=== PATIENT | male | born 1950 | race Caucasian/White ===

== ENCOUNTER → 2019-05-13 10:50 | Outpatient (BNVA) | payer MEDICARE, SELFPAY | PROVIDERS: Family Provider Internal Medicine; PCP Internal Medicine; Visit Provider Nurse Practitioner Psychiatric/Mental Health | DX: F41.1 Generalized anxiety disorder (principal); F43.12 Post-traumatic stress disorder, chronic; F33.2 Major depressive disorder, recurrent severe without psychotic features | CPT/HCPCS: 99213 ==

== ENCOUNTER → 2019-08-05 08:12 | Outpatient (BNVA) | payer OTHER, SELFPAY | PROVIDERS: Family Provider Internal Medicine; PCP Internal Medicine; Visit Provider Nurse Practitioner Psychiatric/Mental Health | DX: F33.2 Major depressive disorder, recurrent severe without psychotic features (principal); F43.12 Post-traumatic stress disorder, chronic; F41.1 Generalized anxiety disorder | CPT/HCPCS: 99213 ==

== ENCOUNTER → 2019-08-13 14:40 | Outpatient (BNVA) | payer OTHER, SELFPAY | PROVIDERS: Family Provider Internal Medicine; PCP Internal Medicine; Visit Provider Urology | DX: R97.20 Elevated prostate specific antigen [PSA] (principal); N40.1 Benign prostatic hyperplasia with lower urinary tract symptoms; N13.8 Other obstructive and reflux uropathy | CPT/HCPCS: 81001; 84153 ==

== ENCOUNTER → 2020-01-15 13:15 | Outpatient (BNVA) | payer OTHER, SELFPAY | PROVIDERS: Family Provider Internal Medicine; PCP Internal Medicine; Visit Provider Nurse Practitioner Psychiatric/Mental Health | DX: F33.3 Major depressive disorder, recurrent, severe with psychotic symptoms (principal); F03.91 Unspecified dementia, unspecified severity, with behavioral disturbance; F41.1 Generalized anxiety disorder; F43.12 Post-traumatic stress disorder, chronic | CPT/HCPCS: 99214 ==

== ENCOUNTER → 2020-01-16 09:28 | Outpatient (BNVA) | payer OTHER, SELFPAY | PROVIDERS: Family Provider Internal Medicine; PCP Internal Medicine; Visit Provider Nurse Practitioner Psychiatric/Mental Health | DX: Z79.899 Other long term (current) drug therapy (principal); F23 Brief psychotic disorder | CPT/HCPCS: 80053; 81001; 85025 ==

== ENCOUNTER → 2020-02-13 12:50 | Outpatient (BNVA) | payer OTHER, SELFPAY | PROVIDERS: Family Provider Internal Medicine; PCP Internal Medicine; Visit Provider Nurse Practitioner Psychiatric/Mental Health | DX: F33.3 Major depressive disorder, recurrent, severe with psychotic symptoms (principal); F03.91 Unspecified dementia, unspecified severity, with behavioral disturbance; F41.1 Generalized anxiety disorder; F43.12 Post-traumatic stress disorder, chronic | CPT/HCPCS: 99214 ==

== ENCOUNTER → 2020-03-13 13:00 | Outpatient (BNVA) | payer OTHER, SELFPAY | PROVIDERS: Family Provider Internal Medicine; PCP Internal Medicine; Visit Provider Nurse Practitioner Psychiatric/Mental Health | DX: F33.3 Major depressive disorder, recurrent, severe with psychotic symptoms (principal); F03.91 Unspecified dementia, unspecified severity, with behavioral disturbance; F41.1 Generalized anxiety disorder; F43.12 Post-traumatic stress disorder, chronic; F33.2 Major depressive disorder, recurrent severe without psychotic features | CPT/HCPCS: 99213 ==

== ENCOUNTER → 2020-07-02 12:58 | Outpatient (BNVA) | payer OTHER, SELFPAY | PROVIDERS: Family Provider Internal Medicine; PCP Internal Medicine; Visit Provider Nurse Practitioner Psychiatric/Mental Health | DX: F33.3 Major depressive disorder, recurrent, severe with psychotic symptoms (principal); F03.91 Unspecified dementia, unspecified severity, with behavioral disturbance; F41.1 Generalized anxiety disorder; F43.12 Post-traumatic stress disorder, chronic | CPT/HCPCS: 99214 ==

== ENCOUNTER → 2020-09-25 13:11 | Outpatient (BNVA) | payer OTHER, SELFPAY | PROVIDERS: Family Provider Internal Medicine; PCP Internal Medicine; Visit Provider Nurse Practitioner Psychiatric/Mental Health | DX: F33.3 Major depressive disorder, recurrent, severe with psychotic symptoms (principal); F41.1 Generalized anxiety disorder; F43.12 Post-traumatic stress disorder, chronic; F03.91 Unspecified dementia, unspecified severity, with behavioral disturbance | CPT/HCPCS: 99214 ==

== ENCOUNTER 2020-11-25 11:57 | Emergency (ER) | payer OTHER, MEDICARE, SELFPAY ==
[2020-11-25 12:06] VITALS: BP 157/67; PULSE 95; RESP 20; TEMP 37.3; O2SAT 94; BMI 44.9
--- NOTE | 2020-11-25 12:59 | USCV_ITS ---
Frank Junior Age: 70 Gender: M : 1950 Exam Date: 11/25/2020 13:30 Ordering Phys: Sherrie Rajan Technologist: Exam Location: [facility] [place] Indication: LT LEG PAIN AND SWELLING PROCEDURES: Venous duplex imaging was performed in only the left lower extremity. The following venous structures were evaluated: common femoral vein, profunda vein, proximal portion of the greater saphenous vein, superficial femoral vein, and the popliteal vein. In addition, the posterior tibial and peroneal trunk were evaluated. On the left side, the common femoral, superficial femoral, profunda femoral, popliteal, posterior tibial, greater saphenous veins, and the peroneal trunk were identified and interrogated in the standard fashion. These veins were found to be easily compressible with spontaneous blood flow. No evidence of insufficiency or thrombus noted. FINDINGS: Normal 2-D Doppler and augmentation and compressibility throughout the lower extremity venous structures. Additional imaging through the proximal calf veins also reveals no thrombus. Limited evaluation of the greater saphenous vein is patent with no thrombus.. CONCLUSIONS No evidence of left lower extremity DVT. Royal Medellin MD (Electronically Signed) Final Date: 25 November 2020 18:01 S
--- NOTE | 2020-11-25 12:59 | W.ED.EXTPRO ---
HPI - Extremity Problem General: Chief complaint: Extremity Problem,Nontraumatic Stated complaint: L FOOT/LEG SWELLING: [facility] Time Seen by Provider: 11/25/20 12:50 Source: patient Mode of arrival: ambulatory Limitations: no limitations History of Present Illness: HPI Narrative: Patient is a 70-year-old male who presents to ED [facility] for concerns of left lower extremity swelling that patient states he initially noticed yesterday. No recent surgery. Patient tells me he does live a very sedentary lifestyle. No history of DVT. Patient states he does not believe he is on anticoagulation. He does not complain of shortness of breath or difficulty breathing. MD Complaint: extremity swelling Onset (ago): day(s) Pain Consistency: constant Location: left and lower extremity Radiation: none Associated symptoms: Reports no associated symptoms; Deny chest pain or fever(s) Review of Systems Const: Denies: fever(s), chills, body aches, fatigue or malaise Card: Denies: chest pain, palpitations, irregular heart rhythm, edema, lightheadedness, syncope or pre-syncope Resp: Denies: dyspnea, wheezing, hemoptysis or chest congestion GI: Denies: abdominal pain, nausea or vomiting Musc: Reports: extremity pain and extremity swelling; Denies: neck pain, back pain, joint pain, joint swelling, joint redness, joint warmth, joint stiffness or limited range of motion Skin/Breast: Reports: other (redness L foot) Neuro: Denies: numbness in extremities or sensory changes PFS ED PFSH: Medical History (Updated 11/25/20 @ 14:28 by LAWRENCE Vaca) BPH w urinary obs/LUTS Chronic post-traumatic stress disorder Elevated PSA Generalized anxiety disorder Major depressive disorder, recurrent, severe with psychotic symptoms Unspecified dementia with behavioral disturbance Family History Mother , 80 Dementia Father , 85 No problems noted. Social History (Updated 09/25/20 @ 13:48 by Leonid Kim LPN) Smoking and tobacco status: former smoker Quit status (tobacco): has quit using tobacco Year quit tobacco: 2009 Second hand smoke exposure: No Alcohol intake: never Marital status: Single Current occupational status: retired History of recent travel: No Physical Exam Const: COMMON NORMALS: no acute distress, patient oriented x3, no limitations and alert NUTRITIONAL APPEARANCE: obese morbidly obese ORIENTATION/CONSCIOUSNESS: Yes awake, Yes oriented to person, Yes oriented to place and Yes oriented to time Resp: COMMON NORMALS: normal respiratory effort and clear to auscultation bilaterally AUSCULTATION: clear to auscultation bilaterally Cardio: COMMON NORMALS: regular rate and regular rhythm RATE: regular rate RHYTHM: regular rhythm Extremity: COMMON NORMALS: full ROM, capillary refill normal and no joint enlargement GENERAL: Yes calf tenderness (L) OTHER: L lower extremity swelling when compared to R; some mild erythema/warmth to dorsum of R foot; NV intact Neuro: COMMON NORMALS: patient oriented x3 SENSORIUM/ORIENTATION: Yes alert, Yes oriented to person, Yes oriented to place and Yes oriented to time Course Vital Signs: Vital signs: Vital Signs Temperature 99.1 F 11/25/20 12:06 Pulse Rate 78 11/25/20 14:02 Respiratory Rate 20 H 11/25/20 12:06 Blood Pressure 139/74 11/25/20 14:02 Pulse Oximetry 96 11/25/20 14:02 MDM - Extremity (Nontraumatic) Lab Data: Labs: Lab Results 11/25/20 11/25/20 11/25/20 Range/Units 13:19 13:19 13:19 WBC 8.4 (4.0-10.0) 10^3/ uL RBC 5.33 H (4.1-5.3) 10^6/u L Hgb 15.5 (11.7-16.6) g/dL Hct 47.7 (42.0-52.0) % MCV 89.5 (80-94) fl MCH 29.1 (28.0-34.0) pg MCHC 32.5 (30.0-36.0) g/dL RDW 13.5 (12.1-15.1) % Plt Count 111 L (130-400) 10^3/c mm MPV 10.7 H (7.4-10.4) fL Neut % (Auto) 64.3 % Lymph % (Auto) 20.0 % [place] % (Auto) 13.9 % Eos % (Auto) 0.1 % Baso % (Auto) 1.1 % Neut # (Auto) 5.38 (1.8-7.7) 10^3/u L Lymph # (Auto) 1.7 (0.8-4.8) 10^3/u L [place] # (Auto) 1.2 H (0.2-0.9) 10^3/u L Eos # (Auto) 0.0 (0.0-0.8) 10^3/u L Baso # (Auto) 0.1 (0.0-0.1) 10^3/u L Nucleated RBC % (a uto) 0 % Nucleated RBCs # 0.0 /100WBC PT 12.70 (12.1-14.9) SECO NDS INR 0.92 (0.8-1.2) APTT 25.1 (23.9-36.7) SECO NDS Sodium 139 (136-145) mmol/L Potassium 4.3 (3.5-5.1) mmol/L Chloride 103 (98-107) mmol/L Carbon Dioxide 27 (22-29) mmol/L Anion Gap 13.3 (5-19) BUN 19 (8-23) mg/dL Creatinine 1.3 H (0.7-1.2) mg/dL GFR Calculation Not Reportable Glucose 154 H (65-115) mg/dL Calculated Osmolal ity 293 (285-295) mOsm/k g Calcium 8.7 (8.5-10.5) mg/dL Total Bilirubin 0.6 (0.15-1.2) mg/dL AST 20 (0-40) U/L ALT 26 (0-41) U/L Alkaline Phosphata se 98 (40-130) IU/L Total Protein 6.1 L (6.6-8.7) g/dL Albumin 4.2 (3.5-5.2) g/dL Globulin 1.9 (1.3-4.6) g/dL Imaging Data^: US L LE venous: My impression: Per Ozzy Rios, tech?no DVT Discharge Plan Discharge Patient Disposition: Home Clinical Impression: Left leg swelling, Cellulitis of foot, left Condition: Stable Prescriptions: New cephalexin 500 mg capsule 500 mg PO Q6H 7 Days Qty: 28 RF: 0 No Action lisinopril 20 mg tablet 10 mg PO DAILY RF: 0 budesonide 90 mcg/actuation aerosol powdr breath activated 2 inh INHALATION BID RF: 0 cilostazol 100 mg tablet 50 mg PO BID RF: 0 pregabalin 100 mg capsule 100 mg PO BID RF: 0 bupropion HCl [Wellbutrin SR] 150 mg tablet sustained-release 12 hr 300 mg PO .morning Qty: 180 RF: 2 donepezil [Aricept] 10 mg tablet 10 mg PO .QHS Qty: 90 RF: 2 memantine 10 mg tablet 10 mg PO .morning Qty: 90 RF: 2 quetiapine [Seroquel] 25 mg tablet 25 mg PO .bedtime Qty: 90 RF: 2 tamsulosin 0.4 mg capsule 0.4 mg PO .BEDTIME Qty: 90 RF: 3 methocarbamol 500 mg tablet 500 mg PO QID RF: 0 aspirin [Adult Low Dose Aspirin] 81 mg tablet,delayed release (DR/EC) 81 mg PO DAILY RF: 0 amlodipine 10 mg tablet 10 mg PO DAILY RF: 0 omega-3 fatty acids [Fish Oil Concentrate] 1,000 mg capsule 1,000 mg PO DAILY RF: 0 furosemide [Lasix] 40 mg tablet 40 mg PO QAM RF: 0 atorvastatin 40 mg tablet 20 mg PO DAILY RF: 0 Discharge Orders: Discharge ED (Routine); Ordered 11/25/20 Ordered By: Sherrie Rajan Referrals: Candice Laura MD [Primary Care Provider] - Patient Instructions: Cellulitis (ED), Leg Edema (ED) Activity Restrictions/Additional Instructions: [facility] in the next 3 to 5 days for any worsening leg pain, swelling, or worsening redness to your foot, streaking up your leg, fevers, or any other concerns you may have. Coding Level of Care Code ED Chief Clerk for Chg Fwd Exam Expanded Problem Focused
[2020-11-25 13:29] LABS: Basophils # 0.1 10^3/uL (0.0-0.1); Basophils % 1.1 %; Eosinophils % 0.1 %; Hematocrit 47.7 % (42.0-52.0); Hemoglobin 15.5 g/dL (11.7-16.6); Lymphocytes # 1.7 10^3/uL (0.8-4.8); Mean Corpuscular HGB Conc 32.5 g/dL (30.0-36.0); Mean Corpuscular Hemoglobin 29.1 pg (28.0-34.0); Mean Corpuscular Volume 89.5 fl (80-94); Mean Platelet Volume 10.7 fL (7.4-10.4); Monocytes # 1.2 10^3/uL (0.2-0.9); Monocytes % 13.9 %; Neutrophils # 5.38 10^3/uL (1.8-7.7); Neutrophils % 64.3 %; Nucleated Red Blood Cells % 0 %; Platelet Count 111 10^3/cmm (130-400); Red Blood Count 5.33 10^6/uL (4.1-5.3); Red Cell Distribution Width 13.5 % (12.1-15.1); White Blood Count 8.4 10^3/uL (4.0-10.0)
[2020-11-25 13:39] LABS: INR 0.92 (0.8-1.2)
[2020-11-25 13:41] LABS: Partial Thromboplastin Time 25.1 SECONDS (23.9-36.7)
[2020-11-25 13:45] LABS: Alanine Aminotransferase 26 U/L (0-41); Albumin Level 4.2 g/dL (3.5-5.2); Alkaline Phosphatase 98 IU/L (40-130); Anion Gap 13.3 (5-19); Aspartate Amino Transferase 20 U/L (0-40); Blood Urea Nitrogen 19 mg/dL (8-23); Calcium 8.7 mg/dL (8.5-10.5); Carbon Dioxide 27 mmol/L (22-29); Chloride 103 mmol/L (98-107); Globulin 1.9 g/dL (1.3-4.6); Glucose 154 mg/dL (65-115); Osmolality Calculated 293 mOsm/kg (285-295); Potassium 4.3 mmol/L (3.5-5.1); Sodium 139 mmol/L (136-145); Total Bilirubin 0.6 mg/dL (0.15-1.2); Total Protein 6.1 g/dL (6.6-8.7)
[2020-11-25 14:02] VITALS: BP 139/74; PULSE 78; O2SAT 96
== END 2020-11-25 14:55 | disposition home or self-care (01) ==
PROVIDERS: Emergency Provider Physician Assistant; PCP Family Medicine
DX: L03.116 Cellulitis of left lower limb (principal); F03.91 Unspecified dementia, unspecified severity, with behavioral disturbance; E66.01 Morbid (severe) obesity due to excess calories; Z68.41 Body mass index [BMI] 40.0-44.9, adult; Z87.891 Personal history of nicotine dependence
CPT/HCPCS: 80053; 85025; 85610; 85730; 93971; 99283

== ENCOUNTER → 2021-01-20 13:20 | Outpatient (BNVA) | payer OTHER, SELFPAY | PROVIDERS: Family Provider Internal Medicine; PCP Internal Medicine; Visit Provider Nurse Practitioner Psychiatric/Mental Health | DX: F33.3 Major depressive disorder, recurrent, severe with psychotic symptoms (principal); F03.91 Unspecified dementia, unspecified severity, with behavioral disturbance; F41.1 Generalized anxiety disorder; F43.12 Post-traumatic stress disorder, chronic | CPT/HCPCS: 99214 ==

== ENCOUNTER → 2021-02-18 13:38 | Outpatient (BNVA) | payer OTHER, SELFPAY | PROVIDERS: Family Provider Internal Medicine; PCP Internal Medicine; Visit Provider Nurse Practitioner Psychiatric/Mental Health | DX: F33.3 Major depressive disorder, recurrent, severe with psychotic symptoms (principal); F03.91 Unspecified dementia, unspecified severity, with behavioral disturbance; F41.1 Generalized anxiety disorder; F43.12 Post-traumatic stress disorder, chronic | CPT/HCPCS: 99214 ==

== ENCOUNTER → 2021-07-21 14:45 | Outpatient (BNVA) | payer OTHER, SELFPAY | PROVIDERS: Family Provider Internal Medicine; PCP Internal Medicine; Visit Provider Nurse Practitioner Psychiatric/Mental Health | DX: F33.3 Major depressive disorder, recurrent, severe with psychotic symptoms (principal); F03.91 Unspecified dementia, unspecified severity, with behavioral disturbance; F41.1 Generalized anxiety disorder; F43.12 Post-traumatic stress disorder, chronic | CPT/HCPCS: 99214 ==

== ENCOUNTER 2022-04-19 21:16 | Emergency (ER) | payer OTHER, SELFPAY ==
[2022-04-19 21:48] VITALS: BP 181/62; PULSE 83; RESP 17; TEMP 36.5; O2SAT 95; BMI 40.4
--- NOTE | 2022-04-19 22:13 | XRR_ITS ---
PROCEDURE INFORMATION: Exam: XR Chest Exam date and time: 04/19/2022 10:56 PM Age: 71 years old Clinical indication: Cough TECHNIQUE: Imaging protocol: Radiologic exam of the chest. Views: 1 view. COMPARISON: CR XR KUB portable [id number] 06/07/2018 3:57 AM FINDINGS: Lungs: Mild COPD. [id number] lung base atelectasis or scarring. No consolidation. Pleural spaces: Unremarkable. No pleural effusion. No pneumothorax. Heart/Mediastinum: Advanced diffuse vascular calcification noted. No cardiomegaly. Bones/joints: Unremarkable. XR/XR chest 1V portable [id number] IMPRESSION: 1. No definite acute findings. 2. Chronic findings above with atherosclerosis and advanced COPD. These findings have progressed mildly from a 06/06/2018 CT.
--- NOTE | 2022-04-19 22:13 | ECG_ITS ---
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 Measurements Intervals [place] Rate: 80 P: 93 KS: 180 QRS: -25 QRSD: 82 T: 57 QT: 366 QTc: 424 Interpretive Statements SINUS RHYTHM WITH MARKED SINUS ARRHYTHMIA BORDERLINE LEFT AXIS DEVIATION [QRS AXIS < -20] LOW QRS VOLTAGE IN PRECORDIAL LEADS [QRS DEFLECTION < 1.0 mV IN CHEST LEADS] MODERATE VOLTAGE CRITERIA FOR LVH, CONSIDER NORMAL VARIANT [MEETS CRITERIA IN ONE OF: R(aVL), S(V1), R(V5), R(V5/V6)+S(V1)] No previous ECG available for comparison Electronically Signed On 04-20-2022 6:54:59 EARLY [employer] SCHOOL PSYCHOLOGIST by Aimee Joseph M.D. [id number]
--- NOTE | 2022-04-19 22:31 | CTR_ITS ---
PROCEDURE INFORMATION: Exam: CT Head Without Contrast Exam date and time: 04/19/2022 11:04 PM Age: 71 years old Clinical indication: Altered mental status/memory loss; Confusion or disorientation; Patient HX: Increasing confusion; Additional info: AMS TECHNIQUE: Imaging protocol: Computed tomography of the head without contrast. Radiation optimization: All CT scans at this facility use at least one of these dose optimization techniques: automated exposure control; mA and/or kV adjustment per patient size (includes targeted exams where dose is matched to clinical indication); or iterative reconstruction. COMPARISON: No relevant prior studies available. RADIATION DOSE METRICS: Total DLP (mGy-cm): 1139.78 FINDINGS: Brain: No focal hemorrhage or midline shift is identified. The ventricles and parenchyma show moderate to severe atrophy and chronic bicerebral white matter ischemic change. A few old small strokes are seen in the left cerebellum, which measure up to about 1.3 cm. A few scattered old lacunes are likely, for example one in the left caudate head. Cerebral ventricles: No ventriculomegaly or evidence of hydrocephalus. Paranasal sinuses: No evidence of acute sinusitis. Mastoid air cells: Visualized mastoid air cells are well aerated. Bones/joints: No displaced skull fracture is noted. Soft tissues: Unremarkable. Vasculature: Diffuse vascular calcifications are present. CT/CT head wo con* [id number] IMPRESSION: 1. No acute intracranial abnormality. 2. Moderate to severe age-related changes. These are advanced for age. A few other chronic findings above.
[2022-04-19 22:35] VITALS: BP 175/99; PULSE 68; RESP 14; O2SAT 94
--- NOTE | 2022-04-19 22:42 | W.ED.AMS ---
HPI - Altered Mental Status General: Chief Complaint: Altered Mental Status Stated Complaint: Chest Checked out Time Seen by Provider: 04/19/22 22:23 Source: patient Mode of arrival: ambulatory Limitations: no limitations History of Present Illness: 71-year-old male does have a history of some dementia states that he is scheduled to have a melanoma to his forehead looked at on April 2029 states that he looked at his counter today and believed it was the so he drove here he is able to tell me his name he knows where he is he lives he does notes 2022 he does have some slight confusion on the time of the day and what actual day it is he denies any headache fever or other complaints Associated symptoms: Deny depression Review of Systems Const: Denies: fever(s), chills, body aches or change in appetite Eyes: Denies: blurry vision or eye discomfort ENMT: Denies: throat pain or dental pain Card: Denies: chest pain Resp: Denies: dyspnea GI: Denies: abdominal pain, nausea, vomiting or diarrhea : Denies: dysuria Musc: Denies: neck pain or back pain Skin/Breast: Denies: rash Neuro: Denies: headache(s) Psych: Denies: depression Claudio/Lymph: Denies: easy bruising All/Imm: Denies: urticaria PFSH ED PFSH: Medical History BPH w urinary obs/LUTS Chronic post-traumatic stress disorder Elevated PSA Generalized anxiety disorder Major depressive disorder, recurrent, severe with psychotic symptoms Psychiatric care Unspecified dementia with behavioral disturbance Family History Mother , 80 Dementia Father , 85 No problems noted. Social History Smoking and tobacco status: former smoker Quit status (tobacco): has quit using tobacco Year quit tobacco: 2009 Second hand smoke exposure: No Alcohol intake: never Marital status: Single Current occupational status: retired History of recent travel: No Physical Exam Const: COMMON NORMALS: no acute distress, average body habitus and patient oriented x3 HENMT: COMMON NORMALS: normocephalic and atraumatic HEAD & SCALP: normocephalic and atraumatic Eye: COMMON NORMALS: Equal, round and reactive pupils present PUPIL: Yes Equal, round and reactive pupils present Neck/C-Spine: COMMON NORMALS: supple Chest: COMMONS NORMALS: normal inspection of the chest Resp: COMMON NORMALS: normal respiratory effort Cardio: COMMON NORMALS: regular rate and regular rhythm RATE: regular rate RHYTHM: regular rhythm GI: COMMON NORMALS: Normal to inspection, nondistended, normoactive bowel sounds present, Soft to palpation and non-tender PALPATION: Yes Soft to palpation Extremity: COMMON NORMALS: normal to inspection Neuro: COMMON NORMALS: patient oriented x3, CN's II-XII intact bilaterally and moves all extremities OTHER: Some slight confusion he does note April 2022 but he thought it was April 22 on the Course Vital Signs: Vital signs: Vital Signs Temperature 97.7 F 04/19/22 21:48 Pulse Rate 85 04/20/22 02:15 Respiratory Rate 20 H 04/20/22 02:15 Blood Pressure 144/66 04/20/22 01:06 Pulse Oximetry 95 04/20/22 01:06 Oxygen Delivery Me thod 04/19/22 22:35 MDM - Altered Mental Status Medical Decision Making Patient presents here with some slight confusion he is well-appearing here he is able answer most my questions appropriately knows the year he knows the month he knows he is able to tell me multiple things he remembers all of her conversations he has medical decision-making capacity wants to leave this time we did try to contact contact his family I cannot keep him here against his will will contact his family again tomorrow to let him know that he seems to be having some worsening dementia and likely needs some help Lab Data 04/19/22 22:40 04/19/22 22:40 Radiology Impressions Chest X-Ray 04/19/22 22:13 IMPRESSION: 1. No definite acute findings. 2. Chronic findings above with atherosclerosis and advanced COPD. These findings have progressed mildly from a 06/06/[address] 04/19/22 22:31 IMPRESSION: 1. No acute intracranial abnormality. 2. Moderate to severe age-related changes. These are advanced for age. A few other chronic findings above. Laboratory Results WBC 7.2 10^3/uL (4.0-10.0) 04/19/22 22:40 RBC 6.43 10^6/uL (4.1-5.3) H 04/19/22 22:40 Hgb 17.9 g/dL (11.7-16.6) H 04/19/22 22:40 Hct 53.7 % (42.0-52.0) H 04/19/22 22:40 MCV 83.5 fl (80-94) 04/19/22 22:40 MCH 27.8 pg (28.0-34.0) L 04/19/22 22:40 MCHC 33.3 g/dL (30.0-36.0) 04/19/22 22:40 RDW 13.4 % (12.1-15.1) 04/19/22 22:40 Plt Count 153 10^3/cmm (130-400) 04/19/22 22:40 MPV 10.4 fL (7.4-10.4) 04/19/22 22:40 Neut % (Auto) 64.4 % 04/19/22 22:40 Lymph % (Auto) 15.1 % 04/19/22 22:40 [place] % (Auto) 16.2 % 04/19/22 22:40 Eos % (Auto) 2.9 % 04/19/22 22:40 Baso % (Auto) 0.4 % 04/19/22 22:40 Neut # (Auto) 4.62 10^3/uL (1.8-7.7) 04/19/22 22:40 Lymph # (Auto) 1.1 10^3/uL (0.8-4.8) 04/19/22 22:40 [place] # (Auto) 1.2 10^3/uL (0.2-0.9) H 04/19/22 22:40 Eos # (Auto) 0.2 10^3/uL (0.0-0.8) 04/19/22 22:40 Baso # (Auto) 0.0 10^3/uL (0.0-0.1) 04/19/22 22:40 Nucleated RBC % (auto) 0 % 04/19/22 22:40 Nucleated RBCs # 0.0 /100WBC 04/19/22 22:40 PT 14.00 SECONDS (12.1-14.9) 04/19/22 22:40 INR 1.05 (0.8-1.2) 04/19/22 22:40 Sodium 132 mmol/L (136-145) L 04/19/22 22:40 Potassium 4.5 mmol/L (3.5-5.1) 04/19/22 22:40 Chloride 98 mmol/L (98-107) 04/19/22 22:40 Carbon Dioxide 20 mmol/L (22-29) L 04/19/22 22:40 Anion Gap 18.5 (5-19) 04/19/22 22:40 BUN 25 mg/dL (8-23) H 04/19/22 22:40 Creatinine 1.2 mg/dL (0.7-1.2) 04/19/22 22:40 GFR Calculation Not Reportable 04/19/22 22:40 Glucose 74 mg/dL (65-115) 04/19/22 22:40 Calculated Osmolality 277 mOsm/kg (285-295) L 04/19/22 22:40 Calcium 9.3 mg/dL (8.5-10.5) 04/19/22 22:40 Total Bilirubin 1.3 mg/dL (0.15-1.2) H 04/19/22 22:40 AST 27 U/L (0-40) 04/19/22 22:40 ALT 21 U/L (0-41) 04/19/22 22:40 Alkaline Phosphatase 167 U/L (40-130) H 04/19/22 22:40 Troponin T Baseline 30 ng/L (0-15) H 04/19/22 22:40 NT-Pro-B Natriuret Pep 134 pg/mL (0-125) H 04/19/22 22:40 Total Protein 7.4 g/dL (6.6-8.7) 04/19/22 22:40 Albumin 4.4 g/dL (3.5-5.2) 04/19/22 22:40 Globulin 3.0 g/dL (1.3-4.6) 04/19/22 22:40 EKG Data EKG 1: I personally reviewed and interpreted this EKG as follows: EKG interpretation date: 04/19/22 EKG interpretation time: 22:46 Interpretation: nsr hr [address] or t wave abnormalities qrs 82 qtc 402 Discharge Plan Discharge Patient Disposition: Home Clinical Impression: Confusion Condition: Stable Prescriptions: No Action lisinopril 20 mg tablet 10 mg PO DAILY budesonide 90 mcg/actuation aerosol powdr breath activated 2 inh INHALATION BID cilostazol 100 mg tablet 50 mg PO BID pregabalin 100 mg capsule 100 mg PO BID tamsulosin 0.4 mg capsule 0.4 mg PO .BEDTIME Qty: 90 3RF aspirin [Adult Low Dose Aspirin] 81 mg tablet,delayed release (DR/EC) 81 mg PO DAILY amlodipine 10 mg tablet 10 mg PO DAILY omega-3 fatty acids [Fish Oil Concentrate] 1,000 mg capsule 1,000 mg PO DAILY furosemide [Lasix] 40 mg tablet 40 mg PO QAM atorvastatin 40 mg tablet 20 mg PO DAILY methocarbamol 500 mg tablet 500 mg PO QID PRN donepezil [Aricept] 10 mg tablet 10 mg PO .QHS Qty: 90 2RF Rx Instructions: Take one tablet at bedtime memantine 10 mg tablet 10 mg PO .morning Qty: 90 2RF Rx Instructions: Take one tablet every morning quetiapine [Seroquel] 25 mg tablet 25 mg PO .bedtime Qty: 90 2RF Rx Instructions: Take one tablet at bedtime bupropion HCl [Wellbutrin SR] 150 mg tablet sustained-release 12 hr 150 mg PO .morning Qty: 90 2RF Rx Instructions: Take one tablet every morning ammonium lactate 12 % cream 1 applic topical DAILY Qty: 385 3RF Rx Instructions: Apply neck down daily emollient [Vanicream] Cream 1 applic topical BID Qty: 500 3RF Rx Instructions: Apply twice daily as needed for moisturizer ketoconazole 2 % cream 1 applic topical BID Qty: 30 6RF Rx Instructions: Apply to red, scaly areas on face 1-2 times daily Discharge Orders: Discharge ED (Routine); Ordered 04/20/22 Ordered By: Carlos Wong Discharge Diet: Advance as tolerated Discharge Activity: Resume usual activity Patient Instructions: Confusion Coding Level of Care Code ED Slurry Tank Operator for Trip Fwd Exam Comprehensive
--- NOTE | 2022-04-19 22:44 | PC.NURSE ---
Covid and FLU swabs. Pt refused swabs, stating that this is how the government gets you . Provider notified.
--- NOTE | 2022-04-19 22:48 | PC.NURSE ---
Addendum entered by HANNAH Tomlin 04/19/22 23:32: @2332- Left a 2nd message for brother to call the ER. Original Note: Family notification Attempted to contact the patients brother, Ta. He is listed as only contact on PHI and pt will need family member to come and get him.
[2022-04-19 22:52] LABS: Basophils % 0.4 %; Eosinophils # 0.2 10^3/uL (0.0-0.8); Eosinophils % 2.9 %; Hematocrit 53.7 % (42.0-52.0); Hemoglobin 17.9 g/dL (11.7-16.6); Lymphocytes # 1.1 10^3/uL (0.8-4.8); Lymphocytes % 15.1 %; Mean Corpuscular HGB Conc 33.3 g/dL (30.0-36.0); Mean Corpuscular Hemoglobin 27.8 pg (28.0-34.0); Mean Corpuscular Volume 83.5 fl (80-94); Mean Platelet Volume 10.4 fL (7.4-10.4); Monocytes # 1.2 10^3/uL (0.2-0.9); Monocytes % 16.2 %; Neutrophils # 4.62 10^3/uL (1.8-7.7); Neutrophils % 64.4 %; Nucleated Red Blood Cells % 0 %; Platelet Count 153 10^3/cmm (130-400); Red Blood Count 6.43 10^6/uL (4.1-5.3); Red Cell Distribution Width 13.4 % (12.1-15.1); White Blood Count 7.2 10^3/uL (4.0-10.0)
[2022-04-19 23:04] LABS: INR 1.05 (0.8-1.2)
[2022-04-19 23:14] LABS: Troponin(5th) Baseline 30 ng/L (0-15)
[2022-04-19 23:25] LABS: Alanine Aminotransferase 21 U/L (0-41); Albumin Level 4.4 g/dL (3.5-5.2); Alkaline Phosphatase 167 U/L (40-130); Aspartate Amino Transferase 27 U/L (0-40); Blood Urea Nitrogen 25 mg/dL (8-23); Calcium 9.3 mg/dL (8.5-10.5); Carbon Dioxide 20 mmol/L (22-29); Chloride 98 mmol/L (98-107); Glucose 74 mg/dL (65-115); NT Pro B Type Natriuretic Pept 134 pg/mL (0-125); Osmolality Calculated 277 mOsm/kg (285-295); Sodium 132 mmol/L (136-145); Total Bilirubin 1.3 mg/dL (0.15-1.2); Total Protein 7.4 g/dL (6.6-8.7)
[2022-04-19 23:39] LABS: Anion Gap 18.5 (5-19)
[2022-04-19 23:40] LABS: Potassium 4.5 mmol/L (3.5-5.1)
[2022-04-20 01:06] VITALS: BP 144/66; PULSE 95; RESP 20; O2SAT 95
[2022-04-20 02:15] VITALS: PULSE 85; RESP 20
== END 2022-04-20 02:17 | disposition home or self-care (01) ==
PROVIDERS: Emergency Provider Emergency Medicine
DX: R41.0 Disorientation, unspecified (principal); Z79.82 Long term (current) use of aspirin; Z87.891 Personal history of nicotine dependence; F03.90 Unspecified dementia, unspecified severity, without behavioral disturbance, psychotic disturbance, mood disturbance, and anxiety
CPT/HCPCS: 36415; 70450; 71045; 80053; 83880; 84484; 85025; 85610; 93005; 99285

== ENCOUNTER 2022-05-15 08:33 | Inpatient (IN) | payer OTHER, SELFPAY ==
[2022-05-15] VITALS (28 sets, daily range): BP systolic 75–155; BP diastolic 43–72; PULSE 76–119; RESP 12–31; TEMP 36.3–36.9; O2SAT 92–100; BMI 35.1
--- NOTE | 2022-05-15 08:37 | CTR_ITS ---
PROCEDURE INFORMATION: Exam: CT Abdomen And Pelvis With Contrast Exam date and time: 05/15/2022 9:16 AM Age: 71 years old Clinical indication: Abdominal pain; Localized; Upper; Prior surgery; Surgery date: 6+ months; Surgery type: Gb; Additional info: Abd pain TECHNIQUE: Imaging protocol: Computed tomography of the abdomen and pelvis with contrast. Radiation optimization: All CT scans at this facility use at least one of these dose optimization techniques: automated exposure control; mA and/or kV adjustment per patient size (includes targeted exams where dose is matched to clinical indication); or iterative reconstruction. Contrast material: OMNI 350; Contrast volume: 100 ml; Contrast route: INTRAVENOUS (IV); Other protocol: This patient has received [address] and 0 known cardiac nuclear medicine studies in the 12 months prior to the current study. COMPARISON: CT abdomen pelvis w con* [id number] 06/06/2018 11:22 AM RADIATION DOSE METRICS: Total DLP (mGy-cm): 1036.63 FINDINGS: Heart: Normal heart size. Coronary atherosclerotic calcifications seen. No pericardial effusion. Liver: Normal. No mass. Gallbladder and bile ducts: The gallbladder has been surgically removed. Pancreas: Normal. No ductal dilation. Spleen: Normal. No splenomegaly. Adrenal glands: Normal. No mass. Kidneys and ureters: Symmetric enhancement of the kidneys. Subcentimeter hypodense lesions in the right kidney are too small to characterize. No hydronephrosis or nephrolithiasis. Bilateral renal vascular calcifications seen. Stomach and bowel: There is wall thickening of the 1st and 2nd portions of the duodenum, in association with focal area of irregularity along the anterior wall of the 2nd portion of the duodenum measuring approximally 5 mm, and small amount of free fluid and air adjacent to the duodenum in the right upper quadrant, consistent with perforated duodenal ulcer. There is diverticulosis without evidence of diverticulitis. Appendix: No evidence of appendicitis. Intraperitoneal space: Unremarkable. No free air. No significant fluid collection. Vasculature: A retroaortic left renal vein is incidentally noted. Moderate diffuse atherosclerotic disease is present. Lymph nodes: Unremarkable. No enlarged lymph nodes. Urinary bladder: Unremarkable as visualized. Reproductive: Unremarkable as visualized. Bones/joints: Degenerative changes of the spine seen. Soft tissues: A small fat containing right inguinal hernia is present. CT/CT abdomen pelvis w con* [id number] IMPRESSION: Perforated duodenal ulcer. THIS REPORT CONTAINS FINDINGS THAT MAY BE CRITICAL TO PATIENT CARE. The findings were verbally communicated via telephone conference with NICOLE BEEBE at 9:53 AM TROPHY ASSEMBLER on 05/15/2022. The findings were acknowledged and understood.
--- NOTE | 2022-05-15 08:45 | W.ED.GIBLEED ---
HPI - GI Bleed General: Chief complaint: GI Bleed Stated complaint: GI BLEED Time Seen by Provider: 05/15/22 08:37 Source: patient and EMS Mode of arrival: EMS Limitations: no limitations History of Present Illness: 73-year-old male who [facility] he has been having some abdominal pain throughout the day he is also had dark tarry stools along with 1 episode of coffee-ground emesis this morning. Patient states his pain is in his abdomen and is diffuse in nature rates it a 6 out of 10 denies any fevers denies any worsening improving factors. Associated symptoms: Reports abdominal pain; Denies chills, easy bruising, fever(s), headache(s) or rash Review of Systems Const: Denies: fever(s), chills, body aches or change in appetite Eyes: Denies: blurry vision or eye discomfort ENMT: Denies: throat pain or dental pain Card: Denies: chest pain Resp: Denies: dyspnea GI: Reports: abdominal pain, coffee ground emesis and melena : Denies: dysuria Musc: Denies: neck pain or back pain Skin/Breast: Denies: rash Neuro: Denies: headache(s) Psych: Denies: depression Claudio/Lymph: Denies: easy bruising All/Imm: Denies: urticaria PFSH ED PFSH: Medical History BPH w urinary obs/LUTS Chronic post-traumatic stress disorder Elevated PSA Generalized anxiety disorder Major depressive disorder, recurrent, severe with psychotic symptoms Psychiatric care Unspecified dementia with behavioral disturbance Family History Mother , 80 Dementia Father , 85 No problems noted. Social History Smoking and tobacco status: former smoker Quit status (tobacco): has quit using tobacco Year quit tobacco: 2009 Second hand smoke exposure: No Alcohol intake: never Marital status: Single Current occupational status: retired History of recent travel: No Physical Exam Const: COMMON NORMALS: no acute distress, patient oriented x3 and healthy appearing HENMT: COMMON NORMALS: normocephalic and atraumatic HEAD & SCALP: normocephalic and atraumatic Eye: COMMON NORMALS: Equal, round and reactive pupils present and EOMs intact bilaterally PUPIL: Yes Equal, round and reactive pupils present Neck/C-Spine: COMMON NORMALS: full ROM and supple Chest: COMMONS NORMALS: normal inspection of the chest and normal palpation of entire chest wall Resp: COMMON NORMALS: normal respiratory effort, No retractions, No use of accessory muscles and clear to auscultation bilaterally AUSCULTATION: clear to auscultation bilaterally Cardio: COMMON NORMALS: regular rate, regular rhythm and No murmurs present (Cardio) RATE: regular rate RHYTHM: regular rhythm GI: COMMON NORMALS: Normal to inspection, nondistended, normoactive bowel sounds present, Soft to palpation, non-tender and no masses PALPATION: Yes Soft to palpation OTHER: black tarry stool hemoccult positive Extremity: COMMON NORMALS: normal to inspection and full ROM Neuro: COMMON NORMALS: patient oriented x3, moves all extremities and no focal motor deficits Psych: COMMON NORMALS: mental status grossly normal, Normal thought process present and cooperative THOUGHT PROCESS: Normal thought process present Skin: COMMON NORMALS: no rashes or lesions noted and no wounds GENERAL SKIN EXAM: no rashes or lesions noted Course Vital Signs: Vital signs: Vital Signs Temperature 98.5 F 05/15/22 08:35 Pulse Rate 110 H 05/15/22 08:35 Respiratory Rate 18 05/15/22 08:35 Blood Pressure 104/56 05/15/22 08:35 Pulse Oximetry 93 05/15/22 08:35 Oxygen Delivery Me thod 05/15/22 08:35 MDM - GI Bleed Medical Decision Making Patient presents here with abdominal pain he did have some blood in the stool he does have a perforated duodenal ulcer patient is quite dehydrated and has acute kidney injury with hypernatremia his blood pressures here been normal spoke to surgeon has taken patient to the OR his blood pressures been normal here Lab Data 05/15/22 08:47 05/15/22 08:47 Radiology Impressions Abdomen/Pelvis CT 05/15/22 08:37 IMPRESSION: Perforated duodenal ulcer. THIS REPORT CONTAINS FINDINGS THAT MAY BE CRITICAL TO PATIENT CARE. The findings were verbally communicated via telephone conference with NICOLE BEEBE at 9:53 AM DIRECTOR OF CHILD WELFARE SERVICES on 05/15/2022. The findings were acknowledged and understood. Laboratory Results WBC 21.2 10^3/uL (4.0-10.0) H 05/15/22 08:47 RBC 6.32 10^6/uL (4.1-5.3) H 05/15/22 08:47 Hgb 17.0 g/dL (11.7-16.6) H 05/15/22 08:47 Hct 57.7 % (42.0-52.0) H 05/15/22 08:47 MCV 91.3 fl (80-94) 05/15/22 08:47 MCH 26.9 pg (28.0-34.0) L 05/15/22 08:47 MCHC 29.5 g/dL (30.0-36.0) L 05/15/22 08:47 RDW 17.3 % (12.1-15.1) H 05/15/22 08:47 Plt Count 176 10^3/cmm (130-400) 05/15/22 08:47 MPV 11.1 fL (7.4-10.4) H 05/15/22 08:47 Neut % (Auto) 87.0 % 05/15/22 08:47 Lymph % (Auto) 6.5 % 05/15/22 08:47 [place] % (Auto) 5.3 % 05/15/22 08:47 Eos % (Auto) 0.0 % 05/15/22 08:47 Baso % (Auto) 0.4 % 05/15/22 08:47 Neut # (Auto) 18.42 10^3/uL (1.8-7.7) H 05/15/22 08:47 Lymph # (Auto) 1.4 10^3/uL (0.8-4.8) 05/15/22 08:47 [place] # (Auto) 1.1 10^3/uL (0.2-0.9) H 05/15/22 08:47 Eos # (Auto) 0.0 10^3/uL (0.0-0.8) 05/15/22 08:47 Baso # (Auto) 0.1 10^3/uL (0.0-0.1) 05/15/22 08:47 Nucleated RBC % (auto) 0 % 05/15/22 08:47 Nucleated RBCs # 0.0 /100WBC 05/15/22 08:47 PT 15.30 SECONDS (12.1-14.9) H 05/15/22 08:47 INR 1.17 (0.8-1.2) 05/15/22 08:47 Sodium 160 mmol/L (136-145) H 05/15/22 08:47 Potassium 4.8 mmol/L (3.5-5.1) 05/15/22 08:47 Chloride 118 mmol/L (98-107) H 05/15/22 08:47 Carbon Dioxide 24 mmol/L (22-29) 05/15/22 08:47 Anion Gap 22.8 (5-19) H 05/15/22 08:47 BUN 58 mg/dL (8-23) H 05/15/22 08:47 Creatinine 4.7 mg/dL (0.7-1.2) H 05/15/22 08:47 GFR Calculation Not Reportable 05/15/22 08:47 Glucose 147 mg/dL (65-115) H 05/15/22 08:47 Calculated Osmolality 349 mOsm/kg (285-295) H 05/15/22 08:47 Calcium 9.7 mg/dL (8.5-10.5) 05/15/22 08:47 Total Bilirubin 1.7 mg/dL (0.15-1.2) H 05/15/22 08:47 AST 171 U/L (0-40) H 05/15/22 08:47 ALT 217 U/L (0-41) H 05/15/22 08:47 Alkaline Phosphatase 179 U/L (40-130) H 05/15/22 08:47 Total Protein 7.3 g/dL (6.6-8.7) 05/15/22 08:47 Albumin 3.8 g/dL (3.5-5.2) 05/15/22 08:47 Globulin 3.5 g/dL (1.3-4.6) 05/15/22 08:47 Lipase 167 U/L (13-60) H 05/15/22 08:47 Blood Type A Positive 05/15/22 08:47 Rho(D) Type Positive 05/15/22 08:47 Antibody Screen Negative 05/15/22 08:47 Critical Care Time Critical Care Time: Critical Care Time: Yes Total Critical Care Time: 45 Attestation: The high probability of a clinically significant, sudden or life threatening deterioration of the patient's gi system(s) required my full and direct attention, intervention and personal management. The critical care time is as shown. This time is in addition to time spent performing any reported procedures but includes the following: [x] Data and vital sign review and interpretation [x] Patient assessment, examination and intervention [x] Documentation [x] Medication orders and management Discharge Plan Discharge Patient Disposition: Admitted As Inpatient Clinical Impression: Duodenal ulcer, perforated, Acute hypernatremia, Acute kidney injury Condition: Stable Coding Level of Care Code ED Freelance Translator for Trip Marc
[2022-05-15 09:02] LABS: Basophils # 0.1 10^3/uL (0.0-0.1); Basophils % 0.4 %; Hematocrit 57.7 % (42.0-52.0); Lymphocytes # 1.4 10^3/uL (0.8-4.8); Lymphocytes % 6.5 %; Mean Corpuscular HGB Conc 29.5 g/dL (30.0-36.0); Mean Corpuscular Hemoglobin 26.9 pg (28.0-34.0); Mean Corpuscular Volume 91.3 fl (80-94); Mean Platelet Volume 11.1 fL (7.4-10.4); Monocytes # 1.1 10^3/uL (0.2-0.9); Monocytes % 5.3 %; Neutrophils # 18.42 10^3/uL (1.8-7.7); Nucleated Red Blood Cells % 0 %; Platelet Count 176 10^3/cmm (130-400); Red Blood Count 6.32 10^6/uL (4.1-5.3); Red Cell Distribution Width 17.3 % (12.1-15.1); White Blood Count 21.2 10^3/uL (4.0-10.0)
[2022-05-15] MEDS: sodium chloride 0.9% 1,000 ML 999 ML IV (09:04)
[2022-05-15 09:17] LABS: INR 1.17 (0.8-1.2)
[2022-05-15] MEDS: iohexol 350 mg/mL 500 mL Btl (per mL) IV (09:28)
[2022-05-15 09:29] LABS: Alanine Aminotransferase 217 U/L (0-41); Albumin Level 3.8 g/dL (3.5-5.2); Alkaline Phosphatase 179 U/L (40-130); Aspartate Amino Transferase 171 U/L (0-40); Blood Urea Nitrogen 58 mg/dL (8-23); Calcium 9.7 mg/dL (8.5-10.5); Carbon Dioxide 24 mmol/L (22-29); Chloride 118 mmol/L (98-107); Globulin 3.5 g/dL (1.3-4.6); Glucose 147 mg/dL (65-115); Lipase 167 U/L (13-60); Osmolality Calculated 349 mOsm/kg (285-295); Sodium 160 mmol/L (136-145); Total Bilirubin 1.7 mg/dL (0.15-1.2); Total Protein 7.3 g/dL (6.6-8.7)
[2022-05-15 09:52] LABS: Anion Gap 22.8 (5-19); Potassium 4.8 mmol/L (3.5-5.1)
--- NOTE | 2022-05-15 10:00 | PC.NURSE ---
PT STARTING TO PULL AT IV LINE AND VITALS EQUIPMENT. PT GOT SELF OUT OF BED AND INTO BEDSIDE CHAIR. PT REFUSED TO GET BACK INTO BED. PT REPEATEDLY STATED TO GET THIS OFF OF ME, PULLING AT PULSE OX. PT PULSE OX REMOVED. PT THEN REMOVED GOWN. PT REORIENTED AND ASKED TO RETURN TO BED. PT COMPLIED TO REQUEST. PT RESTING IN BED.
[2022-05-15] MEDS: haloperidol inj 5 mg/mL INJ 1 mL IM (10:07)
--- NOTE | 2022-05-15 10:38 | PM.HP ---
Providers/Chief Complaint Chief Complaint: GI BLEED History of Present Illness Frank Junior is a 71 year old male long-term resident presented to hospital with abdominal pain and hematemesis. Patient is not able to provide meaningful history, I have left a voicemail to his brother have not received any call back yet. Patient is endorsing abdominal pain, hemodynamically stable for now patient is going to the OR for exploratory laparotomy, Dr. Ariza has been consulted. No culture data shows perforated duodenal ulcer, leukocytosis, afebrile, AKIRA, hypernatremia, signs of dehydration. Review of Systems General: Reports: ROS unobtainable due to medical condition Medications/Allergies Home Medications Medication Instructions Recorded Confirmed Last Taken Type amlodipine 10 mg tablet 10 mg PO DAILY 05/13/19 04/25/22 Unknown History aspirin 81 mg tablet,delayed 81 mg PO DAILY 05/13/19 04/25/22 Unknown History release (Adult Low Dose Aspirin) furosemide 40 mg tablet (Lasix) 40 mg PO QAM 05/13/19 04/25/22 Unknown History omega-3 fatty acids 1,000 mg 1,000 mg PO DAILY 05/13/19 04/25/22 Unknown History capsule (Fish Oil Concentrate) tamsulosin 0.4 mg capsule 0.4 mg PO .BEDTIME #90 caps 08/14/19 04/25/22 Unknown Rx atorvastatin 40 mg tablet 20 mg PO DAILY 01/15/20 04/25/22 Unknown History budesonide 90 mcg/actuation breath 2 inh inhalation BID 01/15/20 04/25/22 Unknown History activated powder inhaler cilostazol 100 mg tablet 50 mg PO BID 01/15/20 04/25/22 Unknown History lisinopril 20 mg tablet 10 mg PO DAILY 01/15/20 04/25/22 Unknown History pregabalin 100 mg capsule 100 mg PO BID 01/15/20 04/25/22 Unknown History methocarbamol 500 mg tablet 500 mg PO QID PRN 07/21/21 04/25/22 Unknown History bupropion HCl 150 mg tablet,12 hr 150 mg PO .morning #90 tabs 11/03/21 04/25/22 Unknown Rx sustained-release (Wellbutrin SR) donepezil 10 mg tablet (Aricept) 10 mg PO .QHS #90 tabs 11/03/21 04/25/22 Unknown Rx memantine 10 mg tablet 10 mg PO .morning #90 tabs 11/03/21 04/25/22 Unknown Rx quetiapine 25 mg tablet (Seroquel) 25 mg PO .bedtime #90 tabs 11/03/21 04/25/22 Unknown Rx ammonium lactate 12 % topical cream 1 applic topical DAILY #385 grams 03/29/22 04/25/22 Unknown Rx emollient (Vanicream topical) 1 applic topical BID #500 grams 03/29/22 04/25/22 Unknown Rx ketoconazole 2 % topical cream 1 applic topical BID #30 grams 03/29/22 04/25/22 Unknown Rx Allergies Allergy/AdvReac Type Severity Reaction Status Date / Time No Known Allergies Allergy Verified 04/25/22 09:45 PFSH Acute PFSH: Medical History BPH w urinary obs/LUTS Chronic post-traumatic stress disorder Elevated PSA Generalized anxiety disorder Major depressive disorder, recurrent, severe with psychotic symptoms Psychiatric care Unspecified dementia with behavioral disturbance Surgical History History of mandibular surgery Hx laparoscopic cholecystectomy Family History Mother , 80 Dementia Father , 85 No problems noted. Social History Smoking and tobacco status: former smoker Quit status (tobacco): has quit using tobacco Year quit tobacco: 2009 Second hand smoke exposure: No Alcohol intake: never Marital status: Single Current occupational status: retired History of recent travel: No Vitals/I&O/Wt Last Vital Signs Temp 98.5 F 05/15/22 08:35 Pulse 110 H 05/15/22 08:35 Resp 18 05/15/22 08:35 BP 104/56 05/15/22 08:35 Pulse Ox 93 05/15/22 08:35 O2 Del Method 05/15/22 08:35 Weight last 48 hrs Weight 95.708 kg Physical Exam Narrative: Patient has Alzheimer's Clinically dehydrated Abdominal pain on deep palpation Patient is very aggravated Agitated Arguing with the staff Dry skin Mucous membranes Patient is able to answer simple questions GCS 15 Oriented to himself EOMI, PERRLA Data 05/15/22 08:47 05/15/22 08:47 A&P Assessment and plan (1) Duodenal ulcer, perforated: (2) Acute hypernatremia: (3) Acute kidney injury: (4) Unspecified dementia with behavioral disturbance: (5) Major depressive disorder, recurrent, severe with psychotic symptoms: (6) Generalized anxiety disorder: (7) BPH w urinary obs/LUTS: Plan Perforated duodenal ulcer N.p.o. Patient will be taken to the OR urgently Dr. Ariza consulted Dehydration related hypotension White count 21,000 No fever Lactic acid is pending Hemoconcentrated hemoglobin Continue IV fluids AKIRA related to dehydration creatinine 4.7 Continue IV fluid hydration Place Wallace catheter Abnormal liver enzymes with high bilirubin, high lipase, Full code N.p.o. Admit to ICU DVT prophylaxis on hold for surgery Attestations Medical Necessity Statement*: More than 2 midnights Coding Level of Care Code 60198 Diagnoses Duodenal ulcer, perforated K26.5 Acute hypernatremia E87.0 Acute kidney injury N17.9 Unspecified dementia with behavioral disturbance F03.91 Major depressive disorder, recurrent, severe with psychotic symptoms F33.3 Generalized anxiety disorder F41.1 BPH w urinary obs/LUTS N40.1; N13.8
[2022-05-15] MEDS: piperacillin-tazobactam 3.375 GM in sodium chloride 0.9% (plus) 50 ML IV ×2 (10:39→20:17)
[2022-05-15 10:42] LABS: Lactate (Lactic Acid level) 3.4 mmol/L (0.5-2.2)
--- NOTE | 2022-05-15 10:49 | P.CONIM_ITS ---
Providers/Reason For Consult Consulting Physician/Specialty*: Dr. Jorge Ariza DO/General surgery Reason for Consult*: Perforated duodenal ulcer Attending Physician: Jorge Ariza DO History of Present Illness History of Present Illness Frank Junior is a 71 year old male, with a history of Alzheimer's and oriented only to self, who presented to the emergency room from the detention and was found to have a perforated duodenal ulcer on CT. Patient is combative and not cooperative. HPI and review of systems are limited secondary to this. We do not have a standing DNR and I cannot get a hold of the patient's brother. I left a voicemail. Review of Systems General: Reports: 10 or more systems reviewed and unremarkable except in HPI and below Medications/Allergies Home Medications Medication Instructions Recorded Confirmed Last Taken Type amlodipine 10 mg tablet 10 mg PO DAILY 05/13/19 04/25/22 Unknown History aspirin 81 mg tablet,delayed 81 mg PO DAILY 05/13/19 04/25/22 Unknown History release (Adult Low Dose Aspirin) furosemide 40 mg tablet (Lasix) 40 mg PO QAM 05/13/19 04/25/22 Unknown History omega-3 fatty acids 1,000 mg 1,000 mg PO DAILY 05/13/19 04/25/22 Unknown History capsule (Fish Oil Concentrate) tamsulosin 0.4 mg capsule 0.4 mg PO .BEDTIME #90 caps 08/14/19 04/25/22 Unknown Rx atorvastatin 40 mg tablet 20 mg PO DAILY 01/15/20 04/25/22 Unknown History budesonide 90 mcg/actuation breath 2 inh inhalation BID 01/15/20 04/25/22 Unknown History activated powder inhaler cilostazol 100 mg tablet 50 mg PO BID 01/15/20 04/25/22 Unknown History lisinopril 20 mg tablet 10 mg PO DAILY 01/15/20 04/25/22 Unknown History pregabalin 100 mg capsule 100 mg PO BID 01/15/20 04/25/22 Unknown History methocarbamol 500 mg tablet 500 mg PO QID PRN 07/21/21 04/25/22 Unknown History bupropion HCl 150 mg tablet,12 hr 150 mg PO .morning #90 tabs 11/03/21 04/25/22 Unknown Rx sustained-release (Wellbutrin SR) donepezil 10 mg tablet (Aricept) 10 mg PO .QHS #90 tabs 11/03/21 04/25/22 Unknown Rx memantine 10 mg tablet 10 mg PO .morning #90 tabs 11/03/21 04/25/22 Unknown Rx quetiapine 25 mg tablet (Seroquel) 25 mg PO .bedtime #90 tabs 11/03/21 04/25/22 Unknown Rx ammonium lactate 12 % topical cream 1 applic topical DAILY #385 grams 03/29/22 04/25/22 Unknown Rx emollient (Vanicream topical) 1 applic topical BID #500 grams 03/29/22 04/25/22 Unknown Rx ketoconazole 2 % topical cream 1 applic topical BID #30 grams 03/29/22 04/25/22 Unknown Rx Allergies Allergy/AdvReac Type Severity Reaction Status Date / Time No Known Allergies Allergy Verified 04/25/22 09:45 PFSH Acute PFSH: Medical History BPH w urinary obs/LUTS Chronic post-traumatic stress disorder Elevated PSA Generalized anxiety disorder Major depressive disorder, recurrent, severe with psychotic symptoms Psychiatric care Unspecified dementia with behavioral disturbance Surgical History History of mandibular surgery Hx laparoscopic cholecystectomy Family History Mother , 80 Dementia Father , 85 No problems noted. Social History Smoking and tobacco status: former smoker Quit status (tobacco): has quit using tobacco Year quit tobacco: 2009 Second hand smoke exposure: No Alcohol intake: never Marital status: Single Current occupational status: retired History of recent travel: No Vitals/I&O/Wt Last Vital Signs Temp 98.5 F 05/15/22 08:35 Pulse 110 H 05/15/22 08:35 Resp 18 05/15/22 08:35 BP 104/56 05/15/22 08:35 Pulse Ox 93 05/15/22 08:35 O2 Del Method 05/15/22 08:35 Weight last 48 hrs Weight 211 lb Physical Exam Narrative: General : Patient is well developed , combative Head : Normal cephalic, a-traumatic. Ears : Pinnae and external canal are normal. Hearing is normal. Eyes : PERRLA, Sclera and injection are normal. No conjunctival discharge. Nose : Mucous membranes are without erythema. Throat : buccal mucosa is normal, gums are without significant recession or hypertrophy. Lungs : Equal chest rise bilaterally, no use of accessory muscles, trachea is midline. Cor : Rate and rhythm are normal. Abdomen : Soft, mildly distended, tender to palpation periumbilically, no g/r/m Extremities : No edema, no cyanosis or clubbing, dorsalis pedis pulses are present bilaterally, non-tender to palpation of calves. Upper extremities are normal bilaterally. Back : non-tender to palpation, no CVA tenderness. Neuro : CN II - XII intact, Upper and lower extremities have equal and full strength Data 05/15/22 08:47 05/15/22 08:47 A&P Assessment and plan (1) Duodenal ulcer, perforated: Plan Exploratory laparotomy Consent will have to be emergent, as patient cannot consent himself and family cannot be reached. Risks include bleeding, infection, damage to surrounding structures, scar, numbness, pain, , need for ostomy creation, open abdomen, need for further surgery. Coding Level of Care Code Acute Code for g Fwd Diagnoses Duodenal ulcer, perforated K26.5
[2022-05-15] MEDS: tranexamic acid 1,000 mg/10mL SDV 1000 MG IV ×2 (11:41→12:46)
--- NOTE | 2022-05-15 12:17 | ANES.PREANE2 ---
Pre-Anesthetic Assessment Height/Weight: Height 1.65 m Weight 95.708 kg Temp Pulse Resp BP Pulse Ox O2 Del Method 98.5 F 104 H 18 103/72 97 05/15/22 08:35 05/15/22 11:05 05/15/22 11:05 05/15/22 11:05 05/15/22 11:05 05/15/22 11:05 Operation Date: 05/15/22 11:15 Proposed Procedures p Exploratory Laparotomy(Not Applicable) - Jorge Ariza DO Familial anesthetic complications: none Was Beta Iris taken within 24 hours: N/A Was Clonidine taken within 24 hours: N/A Social No alcohol and No tobacco (h/o smoking) Exam alert Decreased BBS, tachy, confused but alert Airway Submandibular: within normal limits Cervical ROM: within normal limits Mallampati: Class II Dentition: false Comments: Comments: [place] Pulmonary Chronic Obstructive Pulmonary Disease CV/HEM Hypertension Chronic Renal Insufficiency AKIRA Metabolic Hyperlipidemia and Morbid Obesity hypernatremia, chloremia Neuropsych Anxiety, Dementia and Depression Anesthetic Plan ASA status: 4E Anesthesia: General (RSI) Medications/Allergies Home Medications Medication Instructions Recorded Confirmed Last Taken Type amlodipine 10 mg tablet 10 mg PO DAILY 05/13/19 04/25/22 Unknown History aspirin 81 mg tablet,delayed 81 mg PO DAILY 05/13/19 04/25/22 Unknown History release (Adult Low Dose Aspirin) furosemide 40 mg tablet (Lasix) 40 mg PO QAM 05/13/19 04/25/22 Unknown History omega-3 fatty acids 1,000 mg 1,000 mg PO DAILY 05/13/19 04/25/22 Unknown History capsule (Fish Oil Concentrate) tamsulosin 0.4 mg capsule 0.4 mg PO .BEDTIME #90 caps 08/14/19 04/25/22 Unknown Rx atorvastatin 40 mg tablet 20 mg PO DAILY 01/15/20 04/25/22 Unknown History budesonide 90 mcg/actuation breath 2 inh inhalation BID 01/15/20 04/25/22 Unknown History activated powder inhaler cilostazol 100 mg tablet 50 mg PO BID 01/15/20 04/25/22 Unknown History lisinopril 20 mg tablet 10 mg PO DAILY 01/15/20 04/25/22 Unknown History pregabalin 100 mg capsule 100 mg PO BID 01/15/20 04/25/22 Unknown History methocarbamol 500 mg tablet 500 mg PO QID PRN 07/21/21 04/25/22 Unknown History bupropion HCl 150 mg tablet,12 hr 150 mg PO .morning #90 tabs 11/03/21 04/25/22 Unknown Rx sustained-release (Wellbutrin SR) donepezil 10 mg tablet (Aricept) 10 mg PO .QHS #90 tabs 11/03/21 04/25/22 Unknown Rx memantine 10 mg tablet 10 mg PO .morning #90 tabs 11/03/21 04/25/22 Unknown Rx quetiapine 25 mg tablet (Seroquel) 25 mg PO .bedtime #90 tabs 11/03/21 04/25/22 Unknown Rx ammonium lactate 12 % topical cream 1 applic topical DAILY #385 grams 03/29/22 04/25/22 Unknown Rx emollient (Vanicream topical) 1 applic topical BID #500 grams 03/29/22 04/25/22 Unknown Rx ketoconazole 2 % topical cream 1 applic topical BID #30 grams 03/29/22 04/25/22 Unknown Rx Allergies Allergy/AdvReac Type Severity Reaction Status Date / Time No Known Allergies Allergy Verified 04/25/22 09:45 PFS Anesthesia Medical History BPH w urinary obs/LUTS Chronic post-traumatic stress disorder Elevated PSA Generalized anxiety disorder Major depressive disorder, recurrent, severe with psychotic symptoms Psychiatric care Unspecified dementia with behavioral disturbance Surgical History History of mandibular surgery Hx laparoscopic cholecystectomy Family History Mother , 80 Dementia Father , 85 No problems noted. Social History Smoking and tobacco status: former smoker Quit status (tobacco): has quit using tobacco Year quit tobacco: 2009 Second hand smoke exposure: No Alcohol intake: never Marital status: Single Current occupational status: retired History of recent travel: No Data Anesthesia 05/15/22 08:47 05/15/22 08:47 Short CBC 05/15/22 Range/Units 08:47 WBC 21.2 H (4.0-10.0) 10^3/uL Hgb 17.0 H (11.7-16.6) g/dL Hct 57.7 H (42.0-52.0) % MCV 91.3 (80-94) fl Plt Count 176 (130-400) 10^3/cmm Neut % (Auto) 87.0 % Neut # (Auto) 18.42 H (1.8-7.7) 10^3/uL BMP 05/15/22 08:47 Sodium 160 H Potassium 4.8 Chloride 118 H Carbon Dioxide 24 BUN 58 H Creatinine 4.7 H Glucose 147 H Calcium 9.7 Liver Function 05/15/22 Range/Units 08:47 Total Bilirubin 1.7 H (0.15-1.2) mg/dL AST 171 H (0-40) U/L ALT 217 H (0-41) U/L Alkaline Phosphatase 179 H (40-130) U/L Albumin 3.8 (3.5-5.2) g/dL Blood Bank 05/15/22 08:47 Blood Type A Positive Rho(D) Type Positive Antibody Screen Negative Coags 05/15/22 08:47 PT 15.30 H INR 1.17 Microbiology 05/15/22 11:55 Blood Culture - Preliminary Blood SPECIMEN COLLECTED 05/15/22 10:57 Blood Culture - Preliminary Blood SPECIMEN COLLECTED Cardiac Studies: No Data to Display
--- NOTE | 2022-05-15 12:58 | P.OP_ITS ---
Operative Report Date of procedure: May 15, 2022 Pre-op diagnosis: Perforated duodenal ulcer Post-op diagnosis: same Procedure done: Exploratory laparotomy Creation of omental flap Modified Tico patch repair of perforated duodenal ulcer Implants: Surgicel 19 [place] Amrit drain Surgeon: Dr. Jorge Ariza DO Anesthesia: General Estimated blood loss (mL): 150 Complications: None apparent Findings: 5 mm perforated duodenal ulcer Brief History: This is a 71-year-old gentleman with Alzheimer's dementia who resides in a [place] [facility] that presents to the ER and was found to have a perforated duodenal ulcer on CT. Exploratory laparotomy was indicated. Patient cannot can consent for himself and family cannot be reached. Procedure was performed emergently. Procedure: Patient was wheeled in the OR room and placed on the OR table in supine position. The abdomen was inspected prepped and draped in usual sterile fashion. General endotracheal intubation was achieved by the department anesthesia. A timeout was performed. All present were in agreement. A 10 blade scalpel was then used to make a laparotomy incision from subxiphoid to supraumbilical. Dissection was carried down to the fascia with electrocautery. Lino's were used to grasp the fascia on either side and the fascia was opened with Metzenbaum scissors. This was carried cephalad and caudad with electrocautery. The peritoneum was opened bluntly. I then went down through the gastrocolic ligament bluntly and with the Enseal until I encountered the second portion of duodenum. Gastric content was suctioned. There was some bleeding medial to the duodenum that was oversewn multiple times and then controlled with placement of Surgicel and holding pressure for 5 minutes. There was a 5 mm actively leaking perforation of the duodenum that was repaired with a modified Tico patch. Omentum was brought up from the transverse colon and a flap had to be created using the Enseal in order to reach the high. Two 3-0 silk sutures were used to approximate the perforation, and the ends of those silk sutures were used to tie the omentum to the duodenum. NG tube was confirmed to be in proper position. Abdomen was further inspected and suctioned of bilious material. A 19 [place] Amrit drain was placed over top of the duodenum and came out the left upper quadrant. Drain was sewn into place with 3-0 silk suture. Hemostasis was noted. Laparotomy incision was closed at the f ascia with #1 PDS in a running fashion x2. Skin was closed with sundeep. Sterile dressings were applied. Patient tolerated procedure well.
--- NOTE | 2022-05-15 13:15 | ANE.PACU2 ---
Inpatient post-anesthesia follow up: Airway intact: Yes Vital signs: Temperature 98.5 F Pulse Rate 104 Respiratory Rate 18 Blood Pressure 103/72 Pulse Oximetry 97 Oxygen Delivery Me thod Room Air Oxygen Flow Rate Fraction of Inspir ed Oxygen Hydration adequate: No Nausea and vomiting: No Pain level: 3 Mental status: Altered Additional Comments: Extubated, sedated to ICU, stable--unsure of hydration status, probably still a touch on the dry side, urine concentrated but acceptable volume.
[2022-05-15] MEDS: dexmedetomidine 400 MCG in sodium chloride 0.9% (100 ml) 100 ML IV (13:50)
[2022-05-15] MEDS: dextrose 5%-sod chloride 0.9% 1,000 ML 75 ML IV (14:02)
[2022-05-15 15:07] LABS: Procalcitonin 0.22 ng/mL (0-0.5)
[2022-05-15 15:45] LABS: Hematocrit 45.3 % (42.0-52.0); Hemoglobin 13.2 g/dL (11.7-16.6)
[2022-05-15] MEDS: pantoprazole 40 mg SDV IVP (18:09)
[2022-05-15 19:05] LABS: Hematocrit 42.7 % (42.0-52.0); Hemoglobin 12.2 g/dL (11.7-16.6)
[2022-05-15] MEDS: sodium chloride 0.9% 500 ML 999 ML IV (20:19)
--- NOTE | 2022-05-15 20:54 | PC.NURSE ---
@approximately 1930 pt had low BP's. Passive Leg Raise was performed. Results: 32.4%. Dr. Kaplan updated. New order for for 500ml Normal Saline bolus and to start Levophed if BP does not improve.
[2022-05-15 20:58] LABS: Sodium 160 mmol/L (136-145)
[2022-05-15] MEDS: dextrose 5% 1,000 ML 75 ML IV (21:12)
[2022-05-15 23:31] LABS: Sodium 154 mmol/L (136-145)
[2022-05-16] VITALS (74 sets, daily range): BP systolic 81–122; BP diastolic 42–85; PULSE 107–122; RESP 0–31; TEMP 36.4–37.3; O2SAT 90–95
[2022-05-16 03:30] LABS: Basophils % 0.1 %; Hematocrit 42.7 % (42.0-52.0); Hemoglobin 12.4 g/dL (11.7-16.6); Lymphocytes # 0.5 10^3/uL (0.8-4.8); Lymphocytes % 2.2 %; Mean Corpuscular Hemoglobin 27.4 pg (28.0-34.0); Mean Corpuscular Volume 94.5 fl (80-94); Mean Platelet Volume 11.6 fL (7.4-10.4); Monocytes # 1.3 10^3/uL (0.2-0.9); Monocytes % 6.5 %; Neutrophils # 18.31 10^3/uL (1.8-7.7); Neutrophils % 90.6 %; Nucleated Red Blood Cells % 0 %; Platelet Count 129 10^3/cmm (130-400); Red Blood Count 4.52 10^6/uL (4.1-5.3); Red Cell Distribution Width 16.9 % (12.1-15.1); White Blood Count 20.2 10^3/uL (4.0-10.0)
[2022-05-16 03:50] LABS: Anion Gap 16.3 (5-19); Blood Urea Nitrogen 54 mg/dL (8-23); Calcium 7.5 mg/dL (8.5-10.5); Carbon Dioxide 19 mmol/L (22-29); Chloride 126 mmol/L (98-107); Glucose 198 mg/dL (65-115); Magnesium 2.8 mg/dL (1.7-2.3); Osmolality Calculated 344 mOsm/kg (285-295); Potassium 4.3 mmol/L (3.5-5.1); Sodium 157 mmol/L (136-145)
--- NOTE | 2022-05-16 04:38 | PC.NURSE ---
Pt is able to localize pain. Pt appears to be in severe pain, evidence by FACES scale, calling out during turning, tears in the eyes, and requesting that nurses do not touch him. Morphine 2mg was offered to pt. Pt said, no thank you . When this RN asked the pt if there was a specific reason he did not want pain meds he replied, I just don't . Pain management education was provided, frequent care rounding.
[2022-05-16 07:40] LABS: Hematocrit 43.1 % (42.0-52.0); Hemoglobin 12.3 g/dL (11.7-16.6)
[2022-05-16] MEDS: pantoprazole 40 mg SDV IVP ×2 (08:08→18:36)
[2022-05-16] MEDS: piperacillin-tazobactam 3.375 GM in sodium chloride 0.9% (plus) 50 ML IV ×2 (08:09→18:36)
--- NOTE | 2022-05-16 08:30 | PC.NURSE ---
New Orders Received Dr. Airza at bedside, gave verbal orders for soft limb non-violent restraints due to patient pulling at lines/drain. He also gave verbal orders to hook NG tube to low-intermitt. suction.
--- NOTE | 2022-05-16 08:40 | PC.NURSE ---
New Orders Received Dr. Trevino at bedside, gave verbal orders to admin 500ml NS bolus ONCE.
[2022-05-16] MEDS: sodium chloride 0.9% 500 ML 999 ML IV (09:35)
[2022-05-16] MEDS: dextrose 5% 1,000 ML 75 ML IV (10:04)
--- NOTE | 2022-05-16 10:47 | PC.NUTR ---
Consult received for TPN. Recommend starting TPN @ 13 mls/hr and increasing 10 mls Q8H until 63 mls/hr is reached, with 25 grams/125 mls fat emulsion, electrolytes per MD discretion, and MV 10 mls/day. Details in RD assessment.
--- NOTE | 2022-05-16 11:50 | PC.NURSE ---
Code Status Patient son informed nurse he would like his father to be made limited code. Only interventions allowed as follows, ICU admission and intubation.
--- NOTE | 2022-05-16 13:00 | PM.PN ---
Subjective Subjective: Patient seen and examined. NG was not to suction all night. Vitals/I&O/Wt Last Vital Signs Temp 99.1 F 05/16/22 08:00 Pulse 110 H 05/16/22 12:15 Resp 0 L 05/16/22 12:15 BP 102/69 05/16/22 12:15 Pulse Ox 91 05/16/22 10:00 O2 Del Method 05/16/22 10:00 05/15/22 05/16/22 05/16/22 22:59 06:59 14:59 Intake Total 1997. / 2049.08 80.772 / 2130.853 1515 / 1515 Output Total 50 / 50 420 / 470 Balance 194.481 / 1999.081 -339.228 / 3199.539 1543 / 1515 Weight last 48 hrs Weight 211 lb Physical Exam Narrative: General: No acute distress Abdomen soft, distended, diffusely tender to palpation, no guarding rebound or masses. Dressings clean dry and intact Urinary Catheter Management: Coude: Cath Placed During This Visit: yes Reason for Continuing Indwelling Catheter: Accurate Measurement of Urinary Output in Critically Ill Patients Urinary Catheter Date of Insertion: 05/15/22 Urinary Catheter Time of Insertion: 13:16 Data 05/16/22 07:23 05/16/22 03:02 Micro: Microbiology 05/15/22 11:55 Blood Culture - Preliminary Blood NEGATIVE TO DATE 05/15/22 10:57 Blood Culture - Preliminary Blood NEGATIVE TO DATE A&P Assessment and plan (1) Duodenal ulcer, perforated: Plan Postoperative day #1 status post exploratory laparotomy with modified Tico patch repair of perforated duodenal ulcer Important to keep NG tube to low intermittent wall suction Protonix twice daily Medical management per primary Attestations Medical Necessity Statement*: Per primary Coding Level of Care Code Acute Code for Chg Fwd Diagnoses Duodenal ulcer, perforated K26.5
--- NOTE | 2022-05-16 13:12 | P.PN_ITS ---
Subjective Subjective: Hemoglobin stable Hemodynamically patient tensive and requiring Levophed at 2 [facility] Family meeting conducted this morning for about 10 minutes Patient has been made DO NOT RESUSCITATE however family wants intubation in case of apneic spells Patient is showing signs of apnea I have asked nurse to cut back on opioids Use Narcan if needed Currently on Levophed patient is tachycardic Requested PICC line placement and TPN Patient was transferred to the correction just 2 days before his arrival in the ER from [facility], as per the family he has Alzheimer's dementia but he was somewhat functional at home, Vitals/I&O/Wt Last Vital Signs Temp 99.1 F 05/16/22 08:00 Pulse 110 H 05/16/22 12:15 Resp 0 L 05/16/22 12:15 BP 102/69 05/16/22 12:15 Pulse Ox 91 05/16/22 10:00 O2 Del Method 05/16/22 10:00 05/15/22 05/16/22 05/16/22 22:59 06:59 14:59 Intake Total 80.772 / 2130.853 1515 / 1515 Output Total 50 / 50 420 / 470 Balance 1947.481999.08 -339.228 / 1770.295 7018 / 1515 Weight last 48 hrs Weight 95.708 kg Physical Exam Narrative: Patient is drowsy Showing signs of apneic spells However verbally directable Arousable to verbal stimuli Surgical scar without any active oozing Patient is tachycardic signs of dehydration Hypotensive requiring Levophed S1, S2 sinus tachycardia Neuro exam is limited Urinary Catheter Management: Coude: Cath Placed During This Visit: yes Reason for Continuing Indwelling Catheter: Accurate Measurement of Urinary Outp ut in Critically Ill Patients Urinary Catheter Date of Insertion: 05/15/22 Urinary Catheter Time of Insertion: 13:16 Data 05/16/22 07:23 05/16/22 03:02 Micro: Microbiology 05/15/22 11:55 Blood Culture - Preliminary Blood NEGATIVE TO DATE 05/15/22 10:57 Blood Culture - Preliminary Blood NEGATIVE TO DATE A&P Assessment and plan (1) Duodenal ulcer, perforated: (2) Acute hypernatremia: (3) Acute kidney injury: (4) Unspecified dementia with behavioral disturbance: (5) Major depressive disorder, recurrent, severe with psychotic symptoms: (6) BPH w urinary obs/LUTS: (7) Chronic post-traumatic stress disorder: (8) Generalized anxiety disorder: Plan Duodenal ulcer perforation status post surgical intervention Patient is n.p.o. NG to suction Dehydration related hypotension, hypovolemic shock Start TPN via PICC line We will give him a bolus of fluids He has been getting D5 for hypernatremia No fever, no signs of sepsis Hypernatremia related to dehydration Continue D5 AKIRA related to dehydration anticipating improvement with IV fluids Patient does carry guarded prognosis, this was clearly stated to the family, daughter was at the bedside today, spent 10 minutes in explaining current situation and guarded prognosis Alzheimer's dementia continue acute agitation Opiate-induced apneic spells with possible history of sleep apnea underlying We will use Narcan. Dietitian consulted for severe dehydration and malnourishment N.p.o. DVT prophylaxis: SCDs Monitor urine output Daughter's name is Sybil she lives in [place], her phone number is [phone] Attestations Medical Necessity Statement*: Continue ICU management Coding Level of Care Code 27566 Diagnoses Duodenal ulcer, perforated K26.5 Acute hypernatremia E87.0 Acute kidney injury N17.9 Unspecified dementia with behavioral disturbance F03.91 Major depressive disorder, recurrent, severe with psychotic symptoms F33.3 BPH w urinary obs/LUTS N40.1; N13.8 Chronic post-traumatic stress disorder F43.12 Generalized anxiety disorder F41.1
--- NOTE | 2022-05-16 14:12 | PC.NURSE ---
PICC Line Consent Called patient daughter Sybil, received consent via telephone for PICC line insertion. At this time patient is confused and unable to sign for himself.
--- NOTE | 2022-05-16 14:43 | XRR_ITS ---
PROCEDURE INFORMATION: Exam: XR Chest Exam date and time: 05/16/2022 3:37 PM Age: 71 years old Clinical indication: Device placement; Picc; Additional info: Post picc insertion, jamison to place in icu 9 - will call when ready TECHNIQUE: Imaging protocol: Radiologic exam of the chest. Views: 1 view. COMPARISON: CR XR chest 1V portable [id number] 04/19/2022 10:56 PM FINDINGS: Tubes, catheters and devices: Enteric tube terminates in the stomach. Left PICC line terminates in the right atrium. Lungs: No consolidation. Pleural spaces: No pleural effusion. No pneumothorax. Heart/Mediastinum: Cardiomegaly. Bones/joints: Visualized osseous structures are intact. XR/XR chest 1V portable [id number] IMPRESSION: Left PICC line terminates in the right atrium.
--- NOTE | 2022-05-16 16:10 | XRR_ITS ---
PROCEDURE INFORMATION: Exam: XR Chest Exam date and time: 05/16/2022 4:11 PM Age: 71 years old Clinical indication: Device placement; Picc TECHNIQUE: Imaging protocol: Radiologic exam of the chest. Views: 1 view. COMPARISON: CR XR chest 1V portable [id number] 05/16/2022 3:37 PM FINDINGS: Tubes, catheters and devices: Left PICC line terminates in the right atrium. Stable positioning of enteric tube. Lungs: No significant interval change. Pleural spaces: No significant interval change. Heart/Mediastinum: No significant interval change. Bones/joints: No significant interval change. XR/XR chest 1V portable [id number] IMPRESSION: Left PICC line terminates in the right atrium.
[2022-05-16 16:30] LABS: Hematocrit 42.3 % (42.0-52.0); Hemoglobin 12.3 g/dL (11.7-16.6)
[2022-05-16 16:50] LABS: Sodium 157 mmol/L (136-145)
[2022-05-16 17:07] LABS: D Dimer 0.49 ug/mIFEU (0-0.59)
--- NOTE | 2022-05-16 17:29 | XRR_ITS ---
PROCEDURE INFORMATION: Exam: XR Chest Exam date and time: 05/16/2022 5:32 PM Age: 71 years old Clinical indication: Device placement; Picc; Prior surgery; Additional info: Post picc, picc line retracted additional 5 cm per vrad radiologist TECHNIQUE: Imaging protocol: Radiologic exam of the chest. Views: 1 view. COMPARISON: CR XR chest 1V portable [id number] 05/16/2022 4:11 PM FINDINGS: Tubes, catheters and devices: After retraction the left PICC line is now located within the left brachiocephalic vein. Lungs: No significant interval change. Pleural spaces: No significant interval change. Heart/Mediastinum: No significant interval change. Bones/joints: No significant interval change. XR/XR chest 1V portable [id number] IMPRESSION: After retraction the left PICC line is now located within the left brachiocephalic vein.
--- NOTE | 2022-05-16 17:56 | PC.NURSE ---
Triple lumen PICC inserted to left basilic vein. First and second attempt noted in right atrium. Radiologist recommended retracting PICC 4-5 cm for optimal placement. PICC retracted 5 cm and chest x-ray obtained. Awaiting reading from ad radiologist. Report given to bedside nurse Kristina. Dressing due to be changed tomorrow, 05/17/22.
[2022-05-16 19:34] LABS: Hematocrit 40.3 % (42.0-52.0); Hemoglobin 11.9 g/dL (11.7-16.6)
[2022-05-16] MEDS: morphine 4 mg/mL SDV 1 mL 2 MG IVP (20:51)
[2022-05-16] MEDS: lanolin oint 7 gm 1 APPLIC TOPICAL (21:18)
[2022-05-17] VITALS (96 sets, daily range): BP systolic 66–147; BP diastolic 36–98; PULSE 0–126; RESP 13–27; TEMP 37.2–38.2; O2SAT 90–96
[2022-05-17 02:53] LABS: Basophils # 0.1 10^3/uL (0.0-0.1); Basophils % 0.3 %; Hematocrit 40.7 % (42.0-52.0); Hemoglobin 11.7 g/dL (11.7-16.6); Lymphocytes # 0.8 10^3/uL (0.8-4.8); Mean Corpuscular HGB Conc 28.7 g/dL (30.0-36.0); Mean Corpuscular Hemoglobin 27.1 pg (28.0-34.0); Mean Corpuscular Volume 94.4 fl (80-94); Mean Platelet Volume 11.5 fL (7.4-10.4); Monocytes # 1.3 10^3/uL (0.2-0.9); Neutrophils # 16.76 10^3/uL (1.8-7.7); Neutrophils % 87.9 %; Nucleated Red Blood Cells % 0 %; Platelet Count 102 10^3/cmm (130-400); Red Blood Count 4.31 10^6/uL (4.1-5.3); Red Cell Distribution Width 17.3 % (12.1-15.1); White Blood Count 19.1 10^3/uL (4.0-10.0)
[2022-05-17 03:22] LABS: Anion Gap 15.3 (5-19); Blood Urea Nitrogen 49 mg/dL (8-23); Calcium 6.4 mg/dL (8.5-10.5); Carbon Dioxide 19 mmol/L (22-29); Chloride 127 mmol/L (98-107); Glucose 139 mg/dL (65-115); Osmolality Calculated 339 mOsm/kg (285-295); Potassium 4.3 mmol/L (3.5-5.1); Sodium 157 mmol/L (136-145)
[2022-05-17] MEDS: dextrose 5% 1,000 ML 75 ML IV ×2 (03:50→15:24)
[2022-05-17] MEDS: piperacillin-tazobactam 3.375 GM in sodium chloride 0.9% (plus) 50 ML IV ×2 (04:04→15:23)
--- NOTE | 2022-05-17 04:16 | PC.NURSE ---
Addendum entered by Rosalind Sethi RN 05/17/22 05:44: New order for rectal Tylenol PRN. See MAR. Original Note: Temp. 100.2 @approximately midnight. Room temp. decreased, extra blankets removed. Temp @approximately 0400 was 100.4. Pt is NPO, PRN Tylenol on JUN is PO. Dr. Morales made aware.
[2022-05-17] MEDS: acetaminophen 650 mg Supp PR ×2 (04:29→22:14)
[2022-05-17] MEDS: morphine 4 mg/mL SDV 1 mL 2 MG IVP (05:07)
--- NOTE | 2022-05-17 05:12 | PC.NURSE ---
PT when into SVT in the 180's for about 30 seconds to 1 minute. Came out of the rhythm on his own. Pt reported chest pain with this. Current HR 123. Dr. Morales notified. No new orders @ this time. Strip placed in chart.
--- NOTE | 2022-05-17 06:21 | PM.MISC ---
Miscellaneous Note Note: Patient had an episode of SVT with H/R In 130s lasted for about 20 secs and resolved spontaneously,during the episode patient complained of chest pain.
--- NOTE | 2022-05-17 06:32 | PM.PN ---
Subjective Subjective: Fever overnight around midnight We will request lactic acid blood cultures UA and KUB Postoperative sepsis Leukocytosis 29 Sodium 157 Hemoglobin stable Patient still requiring Levophed Septic shock PICC line in place However it has been retracted Currently patient is on room air Vitals/I&O/Wt Last Vital Signs Temp 100.8 F H 05/17/22 05:15 Pulse 122 H 05/17/22 06:00 Resp 19 H 05/17/22 06:00 BP 90/65 05/17/22 06:00 Pulse Ox 93 05/17/22 06:00 O2 Del Method 05/16/22 21:15 05/16/22 05/16/22 05/17/22 14:59 22:59 06:59 Intake Total 1515 / 1515 152.235 / 6329.803 8481.022 / 2716.257 Output Total 750 / 750 485 / 1235 Balance 1515 / 1515 -597.765 / 917.235 564.022 / 1481.257 Weight last 48 hrs Weight 95.708 kg Physical Exam Narrative: Patient is oriented to himself Currently on room air Febrile No signs of meningitis Surgical site without active drainage PICC line in place No audible stridor or wheezing Dehydrated Multiple apneic spells noted with opioids No signs of edema of legs Urinary Catheter Management: Coude: Cath Placed During This Visit: yes Reason for Continuing Indwelling Catheter: Accurate Measurement of Urinary Output in Critically Ill Patients Urinary Catheter Date of Insertion: 05/15/22 Urinary Catheter Time of Insertion: 13:16 Data 05/17/22 02:24 05/17/22 02:24 Micro: Microbiology 05/15/22 11:55 Blood Culture - Preliminary Blood NEGATIVE TO DATE 05/15/22 10:57 Blood Culture - Preliminary Blood NEGATIVE TO DATE A&P Assessment and plan (1) Postoperative sepsis: (2) Duodenal ulcer, perforated: (3) Acute hypernatremia: (4) Acute kidney injury: (5) Unspecified dementia with behavioral disturbance: (6) Major depressive disorder, recurrent, severe with psychotic symptoms: (7) Generalized anxiety disorder: Plan Postoperative sepsis Start fever around midnight I am reviewing labs 6:40 AM Requested a lactic acid, blood cultures, escalated antibiotics with vancomycin he is already on Zosyn We will give him 2 L septic bolus he has been getting fluids all along, does not want to fluid overload him judicious use of fluids for now add antifungal Hypovolemia with hyponatremia Sodium 157 Continue D5 however I will increase the rate to 100 mm/h Anticipate improvement with initiation of TPN we will follow-up with dietary recommendations Perforated duodenal ulcer Postop developed febrile events, tachypneic and tachycardic, leukocytosis, will follow lactic acid Repeat KUB Requested urinalysis and blood cultures Patient carries guarded prognosis because of multiple comorbid conditions Family meeting conducted Patient is a limited resuscitation CODE STATUS: Which means family would allow us to intubate in case there is apnea however they do not want chest compressions [place] [facility] before his arrival in the ER from [facility] Hypocalcemia: Corrected Attestations Medical Necessity Statement*: Continue ICU management Coding Level of Care Code 74736 Diagnoses Postoperative sepsis T81.44XA Duodenal ulcer, perforated K26.5 Acute hypernatremia E87.0 Acute kidney injury N17.9 Unspecified dementia with behavioral disturbance F03.91 Major depressive disorder, recurrent, severe with psychotic symptoms F33.3 Generalized anxiety disorder F41.1
--- NOTE | 2022-05-17 06:34 | XRR_ITS ---
PROCEDURE INFORMATION: Exam: XR Abdomen Exam date and time: 05/17/2022 6:41 AM Age: 71 years old Clinical indication: Prior surgery; Patient HX: Fever post op, unable to get HX TECHNIQUE: Imaging protocol: Radiologic exam of the abdomen. Views: Frontal supine view of the abdomen. 1 View. COMPARISON: CT abdomen pelvis w con* [id number] 05/15/2022 9:16 AM FINDINGS: Tubes, catheters and devices: There is a surgical drain projecting over the left mid abdomen. NG tube tip is in the stomach, well beyond the diaphragmatic hiatus. Multiple wires and leads project over the abdomen. Gastrointestinal tract: Bowel gas pattern is unremarkable. No sign of obstruction. Intraperitoneal space: There is a staple line along the left mid abdomen. Vasculature: There is moderate aortic atherosclerotic disease. Bones/joints: There is mild degenerative disease in the lower lumbar spine. Soft tissues: No radiodense foreign body is visible. XR/XR KUB portable [id number] IMPRESSION: 1. Expected postoperative findings. 2. Satisfactory NG tube position.
[2022-05-17] MEDS: sodium chloride 0.9% 1,000 ML 999 ML IV ×2 (07:13→08:37)
[2022-05-17] MEDS: vancomycin 1,250 MG/250 ML PIGGYBACK 250 MG IV (07:19)
[2022-05-17 07:23] LABS: Lactic Sepsis W/Reflex 1.5 mmol/L (0.5-2.2)
[2022-05-17] MEDS: pantoprazole 40 mg SDV IVP ×2 (08:13→17:11)
[2022-05-17 08:27] LABS: Add Urine Microscopic? YES; Bilirubin Urine 1+ (Negative); Blood Urine 3+ (Negative); Glucose Urine UA Norm (Normal); Ketones Urine 1+ (Negative); Leukocyte Esterase Urine Trace (Negative); Nitrate Urine Negative (Negative); Protein Urine 1+ (Negative); Specific Gravity, Urine 1.015 (1.005-1.030); Urine Appearance Cloudy (CLEAR); Urine Color Dark Yellow (Yellow); Urobilinogen Urine 4 mg/dL (Negative); pH Urine 5 (5-7)
[2022-05-17 08:28] LABS: Add Urine Culture? Yes; Amorphous Sediment Urine 2+ /hpf; Bacteria Urine 2+ /hpf; RBC Urine 0-4 /hpf (0-2); Squamous Epithelial Cell Urine 0-4 /hpf (0-5); Uric Acid Crystals Urine TOO NUMEROUS TO CNT /hpf; WBC Urine 0-4 /hpf (0-5)
[2022-05-17] MEDS: sodium chloride 0.9% 500 ML 999 ML IV (09:43)
--- NOTE | 2022-05-17 12:37 | XRR_ITS ---
PROCEDURE INFORMATION: Exam: XR Chest Exam date and time: 05/17/2022 12:48 PM Age: 71 years old Clinical indication: Device placement; Picc; Additional info: Picc reposition, please make sure patient is flat and not turned towards left TECHNIQUE: Imaging protocol: Radiologic exam of the chest. Views: 1 view. COMPARISON: CR (CHEST, ) 05/16/2022 5:32 PM FINDINGS: Tubes, catheters and devices: There is a peripherally inserted central catheter on the left with the tip appropriately positioned in the SVC near the cavoatrial junction. The nasogastric tube extends beyond the diaphragmatic hiatus. The tip is not imaged. Lungs: Ill-defined opacity in the lung bases is similar to the findings yesterday. Pleural spaces: The left lateral costophrenic sulcus is blunted. No pneumothorax. Heart/Mediastinum: There is mild enlargement of the cardiac silhouette. Bones/joints: Bones are unremarkable. XR/XR chest 1V portable [id number] IMPRESSION: 1. NG tube is in the stomach. The tip is not imaged. 2. Satisfactory PICC line position. 3. Stable nonspecific opacity in the lung bases and possible left pleural effusion.
--- NOTE | 2022-05-17 13:35 | PC.NURSE ---
Triple lumen PICC now in SVC ready to use. Sterile dressing change performed. Pt tolerated well.
--- NOTE | 2022-05-17 16:40 | PC.SLP ---
Patient not able to maintain alertness to participate in assessment at this time. GARAGE DOOR SERVICE TECHNICIAN will attempt to follow-up the patient at a later time.
--- NOTE | 2022-05-17 17:38 | PC.SLP ---
SALESMAN/OWNER reattempted assessment, however, patient is not wanting to sit up, and having difficulty maintaining alertness. SALESMAN/OWNER will follow up the patient tomorrow, if the patient is able.
--- NOTE | 2022-05-17 18:55 | PC.NURSE ---
No acute changes this shift, gave fluid bolus per orders and MAR, patients temp is currently 99.0F. Resting at this time.
[2022-05-18] VITALS (100 sets, daily range): BP systolic 84–165; BP diastolic 41–92; PULSE 74–120; RESP 12–26; TEMP 37–38.1; O2SAT 90–98
[2022-05-18 03:21] LABS: Hematocrit 34.3 % (42.0-52.0); Hemoglobin 10.2 g/dL (11.7-16.6); Mean Corpuscular HGB Conc 29.7 g/dL (30.0-36.0); Mean Corpuscular Hemoglobin 27.9 pg (28.0-34.0); Mean Corpuscular Volume 93.7 fl (80-94); Mean Platelet Volume 12.1 fL (7.4-10.4); Platelet Count 74 10^3/cmm (130-400); Red Blood Count 3.66 10^6/uL (4.1-5.3); Red Cell Distribution Width 17.6 % (12.1-15.1); White Blood Count 15.5 10^3/uL (4.0-10.0)
[2022-05-18 03:43] LABS: Anion Gap 15.2 (5-19); Blood Urea Nitrogen 54 mg/dL (8-23); Carbon Dioxide 17 mmol/L (22-29); Chloride 127 mmol/L (98-107); Glucose 114 mg/dL (65-115); Magnesium 2.3 mg/dL (1.7-2.3); Osmolality Calculated 336 mOsm/kg (285-295); Potassium 4.2 mmol/L (3.5-5.1); Sodium 155 mmol/L (136-145)
[2022-05-18] MEDS: piperacillin-tazobactam 3.375 GM in sodium chloride 0.9% (plus) 50 ML IV ×2 (04:02→16:02)
[2022-05-18 04:12] LABS: Absolute Segmented Neutrophil 13.6 10/cmm (1.6-7.1); Band Neutrophils Absolute 0.3 10^3/cmm (0.0-1.2); Lymphocytes 7 %; Segmented Neutrophils 88 %; Total Cells Counted 100 (0-100)
[2022-05-18 04:13] LABS: Absolute Eosinophils 0.1 10^3/cmm (0.0-0.7); Eosinophils 1 %; Monocytes Absolute 0.3 10^3/cmm (0.1-0.6); Toxic Granulation 1+
[2022-05-18 04:59] LABS: Platelet Estimate Decreased (Normal)
[2022-05-18] MEDS: dextrose 5% 1,000 ML 75 ML IV ×3 (06:00→18:14)
[2022-05-18] MEDS: pantoprazole 40 mg SDV IVP ×2 (08:46→18:14)
--- NOTE | 2022-05-18 11:22 | P.PN_ITS ---
Subjective Subjective: Patient this morning is off Levophed Able to make eye contact Not very communicative Still fatigued and lethargic Still requiring wrist restraints Tachycardia improved Currently on 2 L nasal cannula Hemoglobin 10 White count trending down 15,000 Low-grade fever overnight Antifungal added yesterday Adequate urine output Monitor for BM Patient is n.p.o. Start TPN today I have signed the paper sheet, Vitals/I&O/Wt Last Vital Signs Temp 99.4 F 05/18/22 08:45 Pulse 103 H 05/18/22 09:06 Resp 18 05/18/22 09:06 BP 111/49 05/18/22 08:45 Pulse Ox 96 05/18/22 09:06 O2 Del Method 05/18/22 09:06 05/17/22 05/18/22 05/18/22 22:59 06:59 14:59 Intake Total 1157.5 / 4207.5 1000 / 5207.5 150 / 150 Output Total 500 / 500 400 / 900 Balance 657.5 / 3707.5 600 / 4307.5 150 / 150 Physical Exam Narrative: Patient is oriented to himself Laying supine Currently on 2 L Wrist restraint Wallace catheter draining concentrated urine Abdomen soft No active drainage Does not seem to be in distress Off Levophed Neuro exam is limited No audible stridor or wheezing Sinus tachycardia Urinary Catheter Management: Coude: Cath Placed During This Visit: yes Reason for Continuing Indwelling Catheter: Accurate Measurement of Urinary Output in Critically Ill Patients Urinary Catheter Date of Insertion: 05/15/22 Urinary Catheter Time of Insertion: 13:16 Data 05/18/22 02:39 05/18/22 02:39 Micro: Microbiology 05/17/22 06:57 Blood Culture - Preliminary Blood NEGATIVE TO DATE 05/17/22 06:58 Blood Culture - Preliminary Blood NEGATIVE TO DATE A&P Assessment and plan (1) Postoperative sepsis: (2) Duodenal ulcer, perforated: (3) Acute hypernatremia: (4) Acute kidney injury: (5) Unspecified dementia with behavioral disturbance: (6) Major depressive disorder, recurrent, severe with psychotic symptoms: (7) BPH w urinary obs/LUTS: (8) Elevated PSA: (9) Chronic post-traumatic stress disorder: (10) Generalized anxiety disorder: Plan Duodenal ulcer with perforation status post intervention NG to suction Patient is n.p.o. Dehydrated malnourished Start TPN which will make a difference in his recovery and hypernatremia Hypernatremia related to dehydration D5 on board, slowly trending down Patient is oriented to himself Able to move his extremities Requiring wrist restraints for agitation Postoperative sepsis: Resolved off Levophed, low-grade fever overnight Currently on renally dosed antibiotics and antifungal I might de-escalate IV antibiotics tomorrow if he remains afebrile AKIRA: Nonoliguric ATN Urine output 900 mL in last 12 to 16 hours, check urine sodium, electrolytes, eosinophils Guarded prognosis family only wants intubation if needed no chest compressions or defibrillation Patient will need care home placement once stable ICU related delirium with underlying dementia requiring Precedex Continue D5 at 100 mm/h Start TPN, dietitian consulted TPN sheet signed Attestations Medical Necessity Statement*: Monitor in ICU for 1 more day, however if bed is needed he can be transferred to [facility] Coding Level of Care Code 71813 Diagnoses Postoperative sepsis T81.44XA Duodenal ulcer, perforated K26.5 Acute hypernatremia E87.0 Acute kidney injury N17.9 Unspecified dementia with behavioral disturbance F03.91 Major depressive disorder, recurrent, severe with psychotic symptoms F33.3 BPH w urinary obs/LUTS N40.1; N13.8 Elevated PSA R97.20 Chronic post-traumatic stress disorder F43.12 Generalized anxiety disorder F41.1
--- NOTE | 2022-05-18 12:57 | PC.NURSE ---
Patient attempts to pull NG tube, PICC and Wallace. When this nurse attempted to verbally redirect patient, patient states, You better not come near me or I will punch you right in the face. Patient currently still in soft wrist restraints for patient safety. Patient readjusted in bed for patient comfort and safety, restraints adjusted to accommodate patient needs. Education provided on importance of lines, tubes, and drain as well as education on restraints. Patient had no verbal response to teaching. Family not present at this time. Will continue to educate as needed throughout shift.
--- NOTE | 2022-05-18 14:20 | PC.SOCIAL ---
IMM UPDATED IMM dated and initialed, copy given to patient and copy placed in chart
[2022-05-18 14:40] LABS: Potassium, Radom Urine 32 mmol/L; Urine Random Chloride 25 mmol/L; Urine Random Sodium 37 mmol/L
[2022-05-18 14:54] LABS: Creatinine Urine, Random 126 mg/dL (39-259); Microalbumin Random Urine 9 ug/dL (0-20)
[2022-05-18 15:02] LABS: Microalbum Creatinine Ratio Ur 71 mg/dL (0-20)
[2022-05-18 15:30] LABS: Eosinophil Urine No Eosinophils Seen; Urine Eosinophil Count 0 (0-0)
--- NOTE | 2022-05-18 15:45 | PM.PN ---
Subjective Subjective: Patient looks much more comfortable today and is freely talking. Still confused with Alzheimer's dementia Vitals/I&O/Wt Last Vital Signs Temp 98.6 F 05/18/22 20:15 Pulse 113 H 05/19/22 05:45 Resp 21 H 05/19/22 05:45 BP 131/82 05/19/22 05:45 Pulse Ox 98 05/19/22 05:45 O2 Del Method 05/18/22 20:00 05/18/22 05/18/22 05/19/22 14:59 22:59 06:59 Intake Total 400 / 400 867.5 / 1267.5 826.25 / 2093.75 Output Total 450 / 450 Balance 400 / 400 417.5 / 817.5 826.25 / 1643.75 Physical Exam Narrative: General: No acute distress Abdomen soft, distended, diffusely tender to palpation, no guarding rebound or masses. Incision intact without erythema or exudate Drain slightly bilious Urinary Catheter Management: Coude: Cath Placed During This Visit: yes Reason for Continuing Indwelling Catheter: Accurate Measurement of Urinary Output in Critically Ill Patients Urinary Catheter Date of Insertion: 05/15/22 Urinary Catheter Time of Insertion: 13:16 Data 05/19/22 03:08 05/19/22 03:08 Micro: Microbiology 05/17/22 06:57 Blood Culture - Preliminary Blood NEGATIVE TO DATE 05/17/22 06:58 Blood Culture - Preliminary Blood NEGATIVE TO DATE A&P Assessment and plan (1) Duodenal ulcer, perforated: Plan Postoperative day #3 status post exploratory laparotomy with modified Tico patch repair of perforated duodenal ulcer Important to keep NG tube to low intermittent wall suction Protonix twice daily TPN Medical management per primary Attestations Medical Necessity Statement*: Per primary Coding Level of Care Code Acute Code for [facility] Diagnoses Duodenal ulcer, perforated K26.5
[2022-05-18] MEDS: morphine 4 mg/mL SDV 1 mL 2 MG IVP (18:14)
[2022-05-19] VITALS (59 sets, daily range): BP systolic 94–186; BP diastolic 50–96; PULSE 54–118; RESP 13–29; TEMP 36.9–37.9; O2SAT 23–99
[2022-05-19] MEDS: morphine 4 mg/mL SDV 1 mL 2 MG IVP ×2 (01:36→10:49)
[2022-05-19 03:32] LABS: Hematocrit 31.8 % (42.0-52.0); Hemoglobin 9.4 g/dL (11.7-16.6); Mean Corpuscular HGB Conc 29.6 g/dL (30.0-36.0); Mean Corpuscular Hemoglobin 27.7 pg (28.0-34.0); Mean Corpuscular Volume 93.8 fl (80-94); Platelet Count 65 10^3/cmm (130-400); Red Blood Count 3.39 10^6/uL (4.1-5.3); Red Cell Distribution Width 17.6 % (12.1-15.1)
[2022-05-19 03:50] LABS: Anion Gap 15.9 (5-19); Blood Urea Nitrogen 62 mg/dL (8-23); Calcium 6.2 mg/dL (8.5-10.5); Carbon Dioxide 16 mmol/L (22-29); Chloride 119 mmol/L (98-107); Glucose 202 mg/dL (65-115); Osmolality Calculated 327 mOsm/kg (285-295); Potassium 3.9 mmol/L (3.5-5.1); Sodium 147 mmol/L (136-145)
[2022-05-19 04:22] LABS: Absolute Segmented Neutrophil 9.7 10/cmm (1.6-7.1); Lymphocytes 6 %; Monocytes Absolute 0.7 10^3/cmm (0.1-0.6); Segmented Neutrophils 88 %; Total Cells Counted 100 (0-100)
[2022-05-19 04:23] LABS: Platelet Estimate Decreased (Normal)
[2022-05-19] MEDS: piperacillin-tazobactam 3.375 GM in sodium chloride 0.9% (plus) 50 ML IV ×2 (05:03→17:09)
[2022-05-19] MEDS: vancomycin 1,250 MG/250 ML PIGGYBACK 250 MG IV (07:06)
[2022-05-19] MEDS: sodium bicarbonate 8.4% 1 mEq/mL 50mL Syr 100 MEQ IVP (08:14)
[2022-05-19] MEDS: dextrose 5% 1,000 ML 100 ML IV ×2 (08:14→20:31)
[2022-05-19] MEDS: pantoprazole 40 mg SDV IVP ×2 (08:14→18:22)
--- NOTE | 2022-05-19 09:30 | PC.NURSE ---
New Orders Received Upon morning assessment TPN turned off, received verbal orders from Dr. Trevino to restart TPN at 30mls/hr.
--- NOTE | 2022-05-19 10:30 | PC.NURSE ---
Spoke with Family Spoke with patient daughter Sybil, updated on plan of care and patient current status. Answered all questions at this time.
--- NOTE | 2022-05-19 11:30 | PC.NURSE ---
New Orders Received Received telephone orders from Dr. Zamorano to admin Bicitra 60mls ONCE now & draw BMP at 1800 tonight.
--- NOTE | 2022-05-19 11:37 | PM.PN ---
Subjective Subjective: Patient seen and examined. Still no bowel movement. NG tube in place and TPN going. No further drain output Vitals/I&O/Wt Last Vital Signs Temp 100.1 F H 05/20/22 04:00 Pulse 96 05/20/22 04:00 Resp 22 H 05/20/22 04:00 BP 160/79 05/20/22 04:00 Pulse Ox 94 05/20/22 04:00 O2 Del Method 05/20/22 04:00 05/19/22 05/19/22 05/20/22 14:59 22:59 06:59 Intake Total 300 / 300 1300 / 1600 125 / 1725 Output Total 550 / 550 975 / 1525 400 / 1925 Balance -250 / -250 325 / 75 -275 / -200 Physical Exam Narrative: General: No acute distress Abdomen soft, distended, diffusely tender to palpation, no guarding rebound or masses. Incision intact without erythema or exudate Drain slightly bilious but this is from yesterday's output Urinary Catheter Management: Coude: Cath Placed During This Visit: yes Reason for Continuing Indwelling Catheter: Other Urinary Catheter Date of Insertion: 05/15/22 Urinary Catheter Time of Insertion: 13:16 Data 05/20/22 04:42 05/20/22 04:42 Micro: Microbiology 05/17/22 06:56 Urine Culture - Preliminary Urine,Clean Catch A&P Assessment and plan (1) Duodenal ulcer, perforated: Plan Postoperative day #4 status post exploratory laparotomy with modified Tico patch repair of perforated duodenal ulcer Important to keep NG tube to low intermittent wall suction Protonix twice daily TPN Will start clear liquids after he has a bowel movement Medical management per primary Attestations Medical Necessity Statement*: Per primary Coding Level of Care Code Acute Code for [facility] Diagnoses Duodenal ulcer, perforated K26.5
--- NOTE | 2022-05-19 11:42 | PM.CONSULT ---
Providers/Reason For Consult Consulting Physician/Specialty*: [facility] /Nephrology Reason for Consult*: AKIRA Attending Physician: Brittany Trevino MD History of Present Illness History of Present Illness Frank Junior is a 71 year old male with is a shelter resident was sent to the hospital due to hematemesis and abdominal pain. Further work-up has showed encapsulated gluteal ulcer on CT scan and patient underwent exploratory laparotomy with patch repair of the duodenal ulcer. Postoperatively patient has required Levophed for blood pressure support has developed fevers and currently receiving TPN as well as IV Zosyn. His creatinine was 1.2 in April and he presented with a creatinine of 4.7 worsened to 5.1 today. Also has hypernatremia. He is nonoliguric with urine output 900 mL in the last 24 hours. Urine electrolytes have been ordered. He is currently on room air. Medications/Allergies Home Medications Medication Instructions Recorded Confirmed Last Taken Type amlodipine 10 mg tablet 10 mg PO DAILY 05/13/19 05/16/22 Unknown History aspirin 81 mg tablet,delayed 81 mg PO DAILY 05/13/19 05/16/22 Unknown History release (Adult Low Dose Aspirin) atorvastatin 40 mg tablet 20 mg PO QPM 01/15/20 05/16/22 Unknown History budesonide 90 mcg/actuation breath 2 inh inhalation BID 01/15/20 05/16/22 Unknown History activated powder inhaler cilostazol 100 mg tablet 50 mg PO BID 01/15/20 05/16/22 Unknown History lisinopril 20 mg tablet 10 mg PO DAILY 01/15/20 05/16/22 Unknown History ammonium lactate 12 % topical cream 1 applic topical DAILY #385 grams 03/29/22 05/16/22 Unknown Rx acetaminophen 325 mg tablet 650 mg PO QID PRN Pain 05/16/22 05/16/22 Unknown History bisacodyl 10 mg rectal suppository 10 mg MS DAILY PRN Constipation 05/16/22 05/16/22 Unknown History (Dulcolax (bisacodyl)) bisacodyl 5 mg tablet,delayed 10 mg PO DAILY PRN Constipation 05/16/22 05/16/22 Unknown History release donepezil 10 mg tablet (Aricept) 10 mg PO QPM 05/16/22 05/16/22 Unknown History magnesium hydroxide 400 mg/5 mL 30 ml PO Q72H PRN Constipation 05/16/22 05/16/22 Unknown History oral suspension (Milk of Magnesia) memantine 10 mg tablet 10 mg PO QAM 05/16/22 05/16/22 Unknown History quetiapine 25 mg tablet (Seroquel) 25 mg PO BEDTIME 05/16/22 05/16/22 Unknown History sodium phosphates 19 gram-7 118 ml MS DAILY PRN Constipation 05/16/22 05/16/22 Unknown History gram/118 mL enema (Fleet Enema) tamsulosin 0.4 mg capsule 0.4 mg PO BEDTIME 05/16/22 05/16/22 Unknown History Allergies Allergy/AdvReac Type Severity Reaction Status Date / Time No Known Allergies Allergy Verified 05/16/22 08:52 Current Medications Generic Name Dose Route Start Last Admin Trade Name Freq PRN Reason Stop Dose Admin Acetaminophen 650 mg 05/17/22 04:22 05/17/22 22:14 Acetaminophen 650 Mg Supp MS 650 mg Q6H PRN Administration FEVER >100.4 Dexmedetomidine HCl 400 mcg/ 104 mls @ 0 mls/hr 05/15/22 13:30 05/16/22 18:49 Sodium Chloride IV Infused .Q0M ELLIOTT Titration Protocol Per Protocol Dextrose 1,000 mls @ 100 mls/hr 05/15/22 20:15 05/19/22 08:14 D5w IV 100 mls/hr .Q10H ELLIOTT Administration Norepinephrine Bitartrate 4 mg 254 mls @ 0 mls/hr 05/15/22 21:15 05/17/22 01:40 / Dextrose IV 0 mcg/min .Q0M ELLIOTT 0 mls/hr Titration Protocol Per Protocol Piperacillin Sod/Tazobactam 50 mls @ 12.5 mls/hr 05/16/22 16:00 05/19/22 09:45 Sod 3.375 gm/ Sodium Chloride IV Infused Q12H ELLIOTT Infusion Protocol Caspofungin 50 mg/ Sodium 250 mls @ 250 mls/hr 05/18/22 12:00 05/18/22 14:59 Chloride IV Infused Q24H ELLIOTT Infusion Multivitamins 10 ml/ Amino 1,010 mls @ 63 mls/hr 05/18/22 14:30 05/19/22 09:51 Acids IV 30 mls/hr .Q16H2M ELLIOTT Administration Fat Emulsion Intravenous 125 mls @ 10.417 mls/hr 05/18/22 14:30 05/19/22 02:30 Intralipid 20% IV Infused Q24H ELLIOTT Infusion Lanolin 1 applic 05/16/22 20:44 05/16/22 21:18 Lanolin Oint 7 Gm TOPICAL 1 applic PRN PRN Administration DRYNESS Morphine Sulfate 2 mg 05/15/22 13:29 05/19/22 10:49 Morphine 4 Mg/Ml Sdv 1 Ml IVP 2 mg Q4H PRN Administration SEVERE PAIN Pantoprazole Sodium 40 mg 05/15/22 18:00 05/19/22 08:14 Pantoprazole 40 Mg Sdv IVP 40 mg BID ELLIOTT Administration PFSH Acute PFSH: Medical History BPH w urinary obs/LUTS Chronic post-traumatic stress disorder Elevated PSA Generalized anxiety disorder Major depressive disorder, recurrent, severe with psychotic symptoms Psychiatric care Unspecified dementia with behavioral disturbance Surgical History History of mandibular surgery Hx laparoscopic cholecystectomy Family History Mother , 80 Dementia Father , 85 No problems noted. Social History Smoking and tobacco status: former smoker Quit status (tobacco): has quit using tobacco Year quit tobacco: 2009 Second hand smoke exposure: No Alcohol intake: never Marital status: Single Current occupational status: retired History of recent travel: No Vitals/I&O/Wt Last Vital Signs Temp 100.3 F H 05/19/22 08:15 Pulse 105 H 05/19/22 10:45 Resp 20 H 05/19/22 10:49 BP 130/96 05/19/22 10:45 Pulse Ox 97 05/19/22 10:45 O2 Del Method 05/19/22 08:00 05/18/22 05/19/22 05/19/22 22:59 06:59 14:59 Intake Total 867.5 / 1267.5 2135.00 / 3402.50 300 / 300 Output Total 450 / 450 550 / 550 Balance 417.5 / 817.5 2135.00 / 2952.50 -250 / -250 Physical Exam Urinary Catheter Management: Coude: Cath Placed During This Visit: yes Reason for Continuing Indwelling Catheter: Accurate Measurement of Urinary Output in Critically Ill Patients Urinary Catheter Date of Insertion: 05/15/22 Urinary Catheter Time of Insertion: 13:16 Data 05/19/22 03:08 05/19/22 03:08 Micro: Microbiology 05/17/22 06:57 Blood Culture - Preliminary Blood NEGATIVE TO DATE 05/17/22 06:58 Blood Culture - Preliminary Blood NEGATIVE TO DATE A&P Assessment and plan (1) Acute kidney injury: Plan 1. Acute on chronic kidney disease: Patient's baseline creatinine is around 1.2, presented with AKIRA most likely ATN due to sepsiS and recent contrast exposure on 05/15/[address] abdomen. Creatinine was 4.7 on presentation worsened to 5.1 currently, nonoliguric, has metabolic acidosis with a bicarb of 16. -No acute indication for dialysis, will watch renal function closely -Avoid nephrotoxins and IV contrast studies -Continue IV fluids 2. Metabolic acidosis: Likely from lactic acidosis and AKIRA-we will give Bicitra now, once sodium the normal range and given bicarbonate drip 3. Sepsis, status post perforated duodenal ulcer: On Zosyn, renally dose antibiotics. 4. Hypernatremia: Currently on TPN, add free water to 50 mL every 6 hours, also on D5W infusion, Discussed with hospitalist. Time spent 35 minutes. Patient evaluated using audiovisual cart. Consult Attestations Medical Necessity Statement: CONTINUED INPT STAY Coding Level of Care Code Acute Code for [facility] Diagnoses Acute kidney injury N17.9
[2022-05-19] MEDS: citric acid-sodium citrate 30 mL UDC 60 ML PO ×2 (12:23→17:25)
--- NOTE | 2022-05-19 13:35 | PC.NURSE ---
Transfer Note Patient transferred to med-surg room 258 from ICU via bed. Handoff report given to CHECO Gunter. Patient oriented to environment and equipment. Covering service notified. Orders reviewed and will continue to monitor. Patient daughter Sybil notified. All patient belongings transferred with patient.
--- NOTE | 2022-05-19 17:02 | P.PN_ITS ---
Subjective Subjective: Patient is laying supine Dehydrated No active complaint No active agitation Oriented to himself Off Levophed Nonoliguric Creatinine 1 5 Consulted chief medical officer Sodium has dropped 147, I will decrease the rate of TPN from 63 cc to 30 cc /h Vitals/I&O/Wt Last Vital Signs Temp 99.1 F 05/19/22 15:33 Pulse 95 05/19/22 15:33 Resp 16 05/19/22 15:33 BP 134/75 05/19/22 15:33 Pulse Ox 97 05/19/22 15:33 O2 Del Method 05/19/22 08:00 05/19/22 05/19/22 05/19/22 06:59 14:59 22:59 Intake Total 2135.00 / 3402.50 300 / 300 250 / 550 Output Total 550 / 550 Balance 2135.00 / 2952.50 -250 / -250 250 / 0 Physical Exam Urinary Catheter Management: Coude: Cath Placed During This Visit: yes Reason for Continuing Indwelling Catheter: Accurate Measurement of Urinary Output in Critically Ill Patients Urinary Catheter Date of Insertion: 05/15/22 Urinary Catheter Time of Insertion: 13:16 Data 05/19/22 03:08 05/19/22 03:08 Micro: Microbiology 05/17/22 06:56 Urine Culture - Preliminary Urine,Clean Catch A&P Assessment and plan (1) Postoperative sepsis: (2) Duodenal ulcer, perforated: (3) Acute hypernatremia: (4) Acute kidney injury: (5) Unspecified dementia with behavioral disturbance: (6) Major depressive disorder, recurrent, severe with psychotic symptoms: (7) Chronic post-traumatic stress disorder: (8) Generalized anxiety disorder: Plan Duodenal ulcer with perforation status post intervention NG to suction Patient is n.p.o., patient is endorsing passage of flatus, no BM yet Dehydrated & malnourished TPN started 05/18 at 63 cc/h, appreciate dietary recommendations Patient has moderate protein calorie malnourishment Hypernatremia related to dehydration discontinue D5 Continue TPN Decrease the rate of TPN to 30 cc/h Sodium has been gradually trending down Postoperative sepsis: Resolved Added antifungal along antibiotics Discontinue vancomycin today Discontinue antifungal if no fever in next 24 hours AKIRA: Nonoliguric ATN Urine studies requested Consulted nephrology Patient is getting acidotic, I have given him 1 amp of bicarb 100 mEq Normal anion gap acidosis related to recent duodenal repair Guarded prognosis family only wants intubation if needed no chest compressions or defibrillation Patient will need senior care placement once stable ICU related delirium with underlying dementia: Resolved Patient is pleasant, oriented to himself Disposition: Rehab: Attestations Medical Necessity Statement*: Can be transferred out of ICU to [facility] Coding Level of Care Code 78687 Diagnoses Postoperative sepsis T81.44XA Duodenal ulcer, perforated K26.5 Acute hypernatremia E87.0 Acute kidney injury N17.9 Unspecified dementia with behavioral disturbance F03.91 Major depressive disorder, recurrent, severe with psychotic symptoms F33.3 Chronic post-traumatic stress disorder F43.12 Generalized anxiety disorder F41.1
[2022-05-19 19:31] LABS: Anion Gap 14.8 (5-19); Blood Urea Nitrogen 53 mg/dL (8-23); Carbon Dioxide 16 mmol/L (22-29); Chloride 108 mmol/L (98-107); Osmolality Calculated 328 mOsm/kg (285-295); Sodium 136 mmol/L (136-145)
[2022-05-19 19:35] LABS: Potassium 2.8 mmol/L (3.5-5.1)
[2022-05-19 19:36] LABS: Calcium 5.6 mg/dL (8.5-10.5); Glucose 675 mg/dL (65-115)
[2022-05-19 20:02] LABS: Glucose Point of Care 171 mg/dL (70-110)
--- NOTE | 2022-05-19 20:09 | PC.NURSE ---
Lab called critical values to this nurse. The values then relayed to hospitalist. Telephone orders given to obtain a finger stick glucose at bedside and orders put in for a STAT repeat CMP. Lab at bedside doing lab draw. Will wait for results and recontact physician for further orders.
[2022-05-19 21:01] LABS: Alanine Aminotransferase 62 U/L (0-41); Albumin Level 2.1 g/dL (3.5-5.2); Alkaline Phosphatase 130 U/L (40-130); Anion Gap 15.5 (5-19); Aspartate Amino Transferase 73 U/L (0-40); Blood Urea Nitrogen 61 mg/dL (8-23); Calcium 7.1 mg/dL (8.5-10.5); Carbon Dioxide 21 mmol/L (22-29); Chloride 114 mmol/L (98-107); Globulin 2.8 g/dL (1.3-4.6); Glucose 169 mg/dL (65-115); Osmolality Calculated 325 mOsm/kg (285-295); Potassium 3.5 mmol/L (3.5-5.1); Sodium 147 mmol/L (136-145); Total Bilirubin 3.1 mg/dL (0.15-1.2); Total Protein 4.9 g/dL (6.6-8.7)
--- NOTE | 2022-05-19 21:42 | PC.NURSE ---
2119-Hospitalist called and notified of patient's updated lab values. No new orders at this time.
--- NOTE | 2022-05-19 22:23 | PC.NURSE ---
Called to patient room to help reposition patient and while lowering the HOB, the patient pulled his NG tube out.
[2022-05-20] VITALS (8 sets, daily range): BP systolic 122–160; BP diastolic 67–85; PULSE 83–107; RESP 16–22; TEMP 36.4–38; O2SAT 90–98
--- NOTE | 2022-05-20 00:42 | PM.MISC ---
Miscellaneous Note Note: Pulled N.G Tube out, multiple attempt made to reinsert, patient was not successful as patient was very uncooperative and was not willing to get it placed.
--- NOTE | 2022-05-20 02:24 | PC.NURSE ---
2229- Attempted to replace NG tube, the patient was very uncooperative. He was thrashing his head from side to side and not following instruction to swallow. The tube placement was incorrect and tube removed. Patient given some time to relax. Reattempted to place and again was unsuccessful. Hospitalist notified and aware. Order given to leave out for the remainder of the shift. Charge nurse notified and aware.
[2022-05-20] MEDS: piperacillin-tazobactam 3.375 GM in sodium chloride 0.9% (plus) 50 ML IV (04:54)
[2022-05-20 05:06] LABS: Basophils % 0.4 %; Eosinophils # 0.2 10^3/uL (0.0-0.8); Eosinophils % 1.9 %; Hematocrit 32.8 % (42.0-52.0); Lymphocytes # 0.8 10^3/uL (0.8-4.8); Lymphocytes % 7.3 %; Mean Corpuscular HGB Conc 30.5 g/dL (30.0-36.0); Mean Corpuscular Hemoglobin 28.3 pg (28.0-34.0); Mean Corpuscular Volume 92.9 fl (80-94); Mean Platelet Volume 12.6 fL (7.4-10.4); Monocytes # 1.1 10^3/uL (0.2-0.9); Monocytes % 10.4 %; Neutrophils # 8.76 10^3/uL (1.8-7.7); Neutrophils % 79.5 %; Nucleated Red Blood Cells % 0 %; Platelet Count 80 10^3/cmm (130-400); Red Blood Count 3.53 10^6/uL (4.1-5.3); Red Cell Distribution Width 17.6 % (12.1-15.1)
[2022-05-20 05:31] LABS: Blood Urea Nitrogen 60 mg/dL (8-23); Calcium 7.1 mg/dL (8.5-10.5); Carbon Dioxide 19 mmol/L (22-29); Chloride 116 mmol/L (98-107); Glucose 170 mg/dL (65-115); Osmolality Calculated 327 mOsm/kg (285-295); Sodium 148 mmol/L (136-145)
[2022-05-20 05:44] LABS: Anion Gap 16.5 (5-19); Potassium 3.5 mmol/L (3.5-5.1)
--- NOTE | 2022-05-20 09:58 | P.PN_ITS ---
Subjective Subjective: NGT pulled out accidentally UOP 700 ml Medications: Reviewed: Yes Vitals/I&O/Wt Last Vital Signs Temp 97.7 F 05/20/22 08:00 Pulse 86 05/20/22 08:40 Resp 16 05/20/22 08:40 BP 122/67 05/20/22 08:00 Pulse Ox 97 05/20/22 08:40 O2 Del Method 05/20/22 08:40 05/19/22 05/20/22 05/20/22 22:59 06:59 14:59 Intake Total 1300 / 1600 125 / 1725 Output Total 975 / 1525 425 / 1950 Balance 325 / 75 -300 / -225 Physical Exam Urinary Catheter Management: Coude: Cath Placed During This Visit: yes Reason for Continuing Indwelling Catheter: Other Urinary Catheter Date of Insertion: 05/15/22 Urinary Catheter Time of Insertion: 13:16 Data 05/20/22 04:42 05/20/22 04:42 Micro: Microbiology 05/17/22 06:56 Urine Culture - Preliminary Urine,Clean Catch A&P Assessment and plan (1) Acute kidney injury: Plan 1. Acute on chronic kidney disease: Patient's baseline creatinine is around 1.2, presented with AKIRA most likely ATN due to sepsiS and recent contrast exposure on 05/15/[address] abdomen. Creatinine was 4.7 on presentation worsened to 5.1 currently, nonoliguric, has metabolic acidosis -No acute indication for dialysis, will watch renal function closely -Avoid nephrotoxins and IV contrast studies -Continue IV fluids 2. Metabolic acidosis: Likely from lactic acidosis and AKIRA-we will give Bicitra now 3. Sepsis, status post perforated duodenal ulcer: On Zosyn, renally dose antibiotics. 4. Hypernatremia: Currently on TPN, encourage PO free water intake , on d5w infusion - continue for now Time spent 35 minutes. Patient evaluated using audiovisual cart. Attestations Medical Necessity Statement*: Per primary Coding Level of Care Code Acute Code for [facility] Diagnoses Acute kidney injury N17.9
[2022-05-20] MEDS: dextrose 5% 1,000 ML 100 ML IV ×2 (10:23→21:32)
[2022-05-20] MEDS: pantoprazole 40 mg SDV IVP ×2 (10:23→19:35)
--- NOTE | 2022-05-20 10:26 | PC.SOCIAL ---
IMM update IMM updated with patient's daughter Tricia. Verbalized an understanding. Initialled, dated, timed, and placed in chart.
[2022-05-20 10:56] LABS: Erythrocyte Sedimentation Rate 23 mm/hr (0-10)
[2022-05-20 11:12] LABS: INR 1.19 (0.8-1.2); Partial Thromboplastin Time 30.9 SECONDS (23.9-36.7)
[2022-05-20 11:13] LABS: Fibrinogen 749 mg/dL (174-498)
[2022-05-20 11:15] LABS: D Dimer 2.81 ug/mIFEU (0-0.59)
[2022-05-20 11:21] LABS: C Reactive Protein 249.2 mg/L (0.0-4.9)
--- NOTE | 2022-05-20 11:31 | CT_ITS ---
WS: [id number] CT CHEST, ABDOMEN AND PELVIS WITHOUT CONTRAST. HISTORY: recurrent fevers, s/p perforated duodenal ulcer TECHNIQUE: Contiguous 5 mm axial imaging performed through the chest, abdomen and pelvis without IV c ontrast, oral contrast has now been provided. Coronal and sagittal reformats chest. Coronal and sagit junior reformats through the abdomen and pelvis. All CT scans at [facility] use at least one of these dose optimization techniques: automated exposure control; mA and/or kV adjustment per patient s ize (includes targeted exams where dose is matched to clinical indication); or iterative reconstructi on. CONTRAST: None DLP: 1309.18 mGy.cm COMPARISON: 05/15/[address]: Small layering RIGHT pleural effusion. Mild interstitial thickening in the upper lung field s exacerbated by motion and breathing artifact. No dense consolidation or pneumonia. Atherosclerosis aorta. Aberrant RIGHT subclavian artery. Left-sided PICC line in good position with tip in the distal SVC. Heart is normal size. Abdomen CT: Patient is status post repair of a duodenal ulcer perforation. Increase in amount of asci kandice in the abdomen. Increased amount of pocket of fluid containing air and free air within the mid ab domen. There is an air-fluid level in the central abdomen near the duodenal C-loop. This collection m easures 8.3 x 4.2 cm. There are numerous foci of free air within the abdomen. Some these could be rel ated to the recent surgery. The extent of air appears more than expected. There is an additional flui d collection with air measuring 4.8 x 8.0 cm to the LEFT of midline in the upper abdomen. Additional free fluid is extending along the RIGHT paracolic gutter and towards the central mesentery. There is a surgical drain entering the mid abdominal wall. The drain does not extend through these inflammator y collection containing air. Scattered pockets of mesenteric edema. Edema extends to the descending colon. No obvious GI tract obs truction. Prior cholecystectomy. Atherosclerosis aorta. Perinephric stranding around each kidney. No renal obst ruction. Pelvic CT: Wallace catheter in place. Air in the urinary bladder is in the recent catheter insertion. CT/[place] [id number] IMPRESSION: 1. New fluid collections with air centered within the abdomen are ill-defined. Suspect developing abscesses. The largest collection is adjacent to the duoden al C-loop measuring 8.3 x 4.2 cm. Smaller collection which may be contiguous fr om the larger collection extending into the LEFT abdomen measuring 4.8 x 4.0 cm . There is a additional fluid which is free extending along the RIGHT paracolic gutter and into the mesentery. 2. Numerous foci of free air within the peritoneal cavity. Largest amount near the repaired duodenal perforation. Findings are suspicious for recurrent or re sidual perforation. 3. Surgical drain is noted but external to the developing complex fluid collec tions. 4. New small RIGHT pleural effusion. Notified Haim Lowe MD at 05/20/2022 1:20 PM.
[2022-05-20 11:37] LABS: Ferritin 1250 ng/mL (30-400)
[2022-05-20 11:38] LABS: LAB Peripheral Smear Sent for Review
[2022-05-20] MEDS: OLANZapine 10 mg VIAL 5 MG IM (12:02)
[2022-05-20] MEDS: heparin 5,000 unit/mL INJ 1 mL 5000 UNIT SUBCUT (12:05)
--- NOTE | 2022-05-20 13:38 | PC.SLP ---
Orders received, chart reviewed. Patient was unwilling to participate in a bedside swallowing evaluation. When given ice chips, patient would spit them out. He was offered a mouth swab and a small drink of water since his mouth/tongue are so dry. He refused and responded that he didn't want to eat or drink and he was ok if he . Will attempt to assess patient tomorrow.
[2022-05-20 15:01] LABS: Influenza A by IFA negative (Negative); Influenza B by IFA negative (Negative)
[2022-05-20] MEDS: meropenem 500 MG in sodium chloride 0.9% (plus) 50 ML 100 MG IV (16:03)
[2022-05-20 16:28] LABS: Adenovirus Not Detected (NOT DETECT); Chlamydia Pneumoniae Not Detected (NOT DETECT); Coronavirus 229E,HKU1,NL63,OC4 Not Detected (NOT DETECT); Human Metapneumovirus Not Detected (NOT DETECT); Human Rhinovirus/Enterovirus Not Detected (NOT DETECT); Influenza A Not Detected (NOT DETECT); Influenza A H1 Not Detected (NOT DETECT); Influenza A H1-2009 Not Detected (NOT DETECT); Influenza A H3 Not Detected (NOT DETECT); Influenza B Not Detected (NOT DETECT); Mycoplasma Pneumoniae Not Detected (NOT DETECT); Parainfluenza Virus Type 1 Not Detected (NOT DETECT); Parainfluenza Virus Type 2 Not Detected (NOT DETECT); Parainfluenza Virus Type 3 Not Detected (NOT DETECT); Parainfluenza Virus Type 4 Not Detected (NOT DETECT); Respiratory Syncytial Virus A Not Detected (NOT DETECT); Respiratory Syncytial Virus B Not Detected (NOT DETECT); SARS-COV-2 Not Detected (NOT DETECT)
--- NOTE | 2022-05-20 16:43 | PM.PN ---
Subjective Subjective: Patient seen and examined. Still no bowel movement. Patient pulled NG tube overnight. No further drain output Vitals/I&O/Wt Last Vital Signs Temp 98.6 F 05/21/22 03:45 Pulse 73 05/21/22 03:45 Resp 21 H 05/21/22 03:45 BP 183/83 05/21/22 03:45 Pulse Ox 97 05/21/22 03:45 O2 Del Method 05/21/22 00:42 05/20/22 05/21/22 05/21/22 22:59 06:59 14:59 Intake Total 1610 / 3465 831.667 / 4296.667 Output Total 1200 / 1200 200 / 1400 Balance 410 / 2265 631.667 / 2896.667 Physical Exam Narrative: General: No acute distress Abdomen soft, distended, diffusely tender to palpation, no guarding rebound or masses. Incision intact without erythema or exudate Drain slightly bilious but this is from yesterday's output Urinary Catheter Management: Coude: Cath Placed During This Visit: yes Reason for Continuing Indwelling Catheter: Other Urinary Catheter Date of Insertion: 05/15/22 Urinary Catheter Time of Insertion: 13:16 Data 05/21/22 05:03 05/21/22 05:03 Micro: Microbiology 05/17/22 06:56 Urine Culture - Final Urine,Clean Catch 05/15/22 11:55 Blood Culture - Final Blood NO GROWTH AFTER 5 DAYS 05/15/22 10:57 Blood Culture - Final Blood NO GROWTH AFTER 5 DAYS 05/20/22 10:20 Blood Culture - Preliminary Blood SPECIMEN COLLECTED 05/20/22 10:40 Blood Culture - Preliminary Blood SPECIMEN COLLECTED A&P Assessment and plan (1) Duodenal ulcer, perforated: Plan Status post exploratory laparotomy with modified Tico patch repair of perforated duodenal ulcer Protonix twice daily TPN Medical management per primary I was able to get a hold of the patient's daughter. The daughter and the son have agreed that they want the patient to be made palliative care. They do not want any further surgical intervention. They wish for the natural process to take place. They will be in town on Monday. Attestations Medical Necessity Statement*: Per primary Coding Level of Care Code Acute Code for [facility] Fwd Diagnoses Duodenal ulcer, perforated K26.5
--- NOTE | 2022-05-20 17:16 | PM.PN ---
Subjective Subjective: - Patient was seen multiple times throughout the morning, and the evening with extensive discussion with general surgery Dr. Ariza and patient's daughter -Patient was seen early in the morning, overnight he had episodes of agitation placed in soft restraints, he pulled out his NG tube, -I had nursing staff take him out soft restraints given Zyprexa, he was a bit more calm -This morning he was not able to follow commands, alert to person, not to place, not to time, he Swatting me away, according to nursing staff he was quite agitated with him, striking at nursing staff -Patient is quite encephalopathic -Patient has persistent leukocytosis, elevated Pro-Hakeem, elevated CRP, abdomen slightly distended, no guarding, no rebound, no rigidity persistent fevers, thus prompting me to order a CAT scan which showed no fluid collections with air centered within the abdomen, concerns for abscess versus will bowel leak -I discussed the case extensively Dr. Ariza, who recommended to discuss with family members, on the best course of action as there is a question on his dementia, how aggressive our intervention should be, indigestion we will try to do a oral Gastrografin CT scan -I was personally present with patient as we tried to give him oral Gastrografin, he was initially agreeable however he was too weak to suck up the oral Gastrografin, and was too agitated for any repeat nasogastric tube placement -Thus I had to discontinue CT scan with oral Gastrografin -I had extensive with discussion with patient's daughter Sybil aquino [phone] -Patient had has 2 other daughters, but they are not involved in his care, patient does not have a healthcare power of regulatory attorney or a DPOA, does not have a living will as per daughter -I had a discussion about patient's baseline level of function, she tells me that he does have dementia, but before all this, he was actually quite independent, lives by himself he actually just bought a [employer]vy pickup truck he drives regular to [facility], he is fairly independent, he is fairly functional despite his dementia -However what sent him to the shelter from [facility] was a fall, she is not exactly sure what happened at [facility] -She does tell me that he has a history of a perforated bowel in the past, for which she was hospitalized in [place] at the [facility] she is not sure about the details but this was many years ago -I confirmed with the shelter that he has only been at the shelter for 2 days -I discussed with Tricia in detail patient's CT scan findings, his persistent leukocytosis, with elevated inflammatory markers and CT scan findings, she tells me that she wants to speak to general surgery, and speak to her family member who is a respiratory therapist who has a bit of a medical background, -Patient was reexamined in the evening, she is a bit more alert and awake, he can follow commands he recognizes me as a doctor, but does become easily agitated, Vitals/I&O/Wt Last Vital Signs Temp 97.5 F L 05/20/22 16:00 Pulse 98 05/20/22 16:00 Resp 16 05/20/22 16:00 BP 137/76 05/20/22 16:00 Pulse Ox 94 05/20/22 16:00 O2 Del Method 05/20/22 16:00 05/20/22 05/20/22 05/20/22 06:59 14:59 22:59 Intake Total 125 / 1725 1854 Output Total 425 / 1950 Balance -300 / -225 1854 Physical Exam Const: COMMON NORMALS: no acute distress EXAM LIMITATIONS: altered mental status ORIENTATION/CONSCIOUSNESS: Yes awake, Yes oriented to person and Yes confused; not oriented to place and not oriented to time Resp: COMMON NORMALS: normal respiratory effort, No retractions, No use of accessory muscles and clear to auscultation bilaterally AUSCULTATION: clear to auscultation bilaterally Cardio: COMMON NORMALS: regular rate, regular rhythm, S1 normal heart sound present and S2 normal heart sound present RATE: regular rate RHYTHM: regular rhythm HEART SOUNDS: S1 normal heart sound present and S2 normal heart sound present GI: OTHER: Soft, slightly distended, no guarding, no rigidity, high-pitched bowel sounds, no point tenderness Extremity: COMMON NORMALS: no pedal edema Neuro: SENSORIUM/ORIENTATION: Yes oriented to person, No oriented to place and No oriented to time Urinary Catheter Management: Coude: Cath Placed During This Visit: yes Reason for Continuing Indwelling Catheter: Other Urinary Catheter Date of Insertion: 05/15/22 Urinary Catheter Time of Insertion: 13:16 Data 05/20/22 04:42 05/20/22 04:42 Micro: Microbiology 05/17/22 06:56 Urine Culture - Final Urine,Clean Catch 05/15/22 11:55 Blood Culture - Final Blood NO GROWTH AFTER 5 DAYS 05/15/22 10:57 Blood Culture - Final Blood NO GROWTH AFTER 5 DAYS 05/20/22 10:20 Blood Culture - Preliminary Blood SPECIMEN COLLECTED 05/20/22 10:40 Blood Culture - Preliminary Blood SPECIMEN COLLECTED A&P Assessment and plan (1) Acute encephalopathy: (2) Hypoalbuminemia: (3) Hyperbilirubinemia: (4) Thrombocytopenia: (5) Leukocytosis: (6) Transaminitis: (7) Postoperative sepsis: (8) Duodenal ulcer, perforated: (9) Acute hypernatremia: (10) Acute kidney injury: (11) Unspecified dementia with behavioral disturbance: (12) Major depressive disorder, recurrent, severe with psychotic symptoms: (13) Chronic post-traumatic stress disorder: (14) Generalized anxiety disorder: (15) Acute renal failure: (16) Protein calorie malnutrition: (17) Physical deconditioning: Plan Duodenal ulcer with perforation s/p Exploratory laparotomy Creation of omental flap Modified Tico patch repair of perforated duodenal ulcer -Due to persistent leukocytosis, fevers, elevated CRP, Pro-Hakeem, abdomen slightly distended, repeat CT scan abdomen pelvis was ordered -Repeat CT scan shows 1.? New fluid collections with air centered within the abdomen are ill-defined. Suspect developing abscesses. The largest collection is adjacent to the duodenal C-loop measuring 8.3 x 4.2 cm. Smaller collection which may be contiguous from the larger collection extending into the LEFT abdomen measuring 4.8 x 4.0 cm. There is a additional fluid which is free extending along the RIGHT paracolic gutter and into the mesentery. 2.? Numerous foci of free air within the peritoneal cavity. Largest amount near the repaired duodenal perforation. Findings are suspicious for recurrent or residual perforation. 3.? Surgical drain is noted but external to the developing complex fluid collections. -Patient was not able to do a Gastrografin study, I personally tried to get patient to do it, but he is too weak, high aspiration risk -Could consider NG tube placement and then trial --However patient has removed NG tube due to agitation -Spoke to general surgery, Dr. Ariza, will await discussion with patient's daughter and surgery, for next steps -Keep n.p.o. -I have broaden antibiotic coverage to vancomycin, changed to meropenem, continue antifungal coverage -Has not had a bowel movement -TPN started 05/18 at 63 cc/h, appreciate dietary recommendations -Patient has moderate protein calorie malnourishment -Heparin for DVT prophylaxis -Limited code, family only wants intubation if needed, no chest compressions or defibrillation Acute delirium -With underlying dementia -Concerns for underlying duodenal ulcer with perforation with possible abscess and or bowel leak -Prolonged hospitalization, ICU delirium -Neurochecks, aspiration precautions -Monitor mentation closely Persistent leukocytosis -Repeat blood cultures -Repeat urine cultures -Repeat sputum cultures -Flu, COVID -Follow inflammatory markers Hypernatremia related to dehydration discontinue D5 Continue TPN TPN to 30 cc/h Sodium has been gradually trending down Postoperative sepsis: Resolved AKIRA: Nonoliguric ATN Nephrology consulted Creatinine remains 5.1 Patient is getting acidotic, I have given him 1 amp of bicarb 100 mEq Normal anion gap acidosis related to recent duodenal repair Guarded prognosis family only wants intubation if needed no chest compressions or defibrillation Patient will need shelter placement once stable Patient is pleasant, oriented to himself, not to place, not to time, can follow commands this evening Disposition: Rehab: Attestations Medical Necessity Statement*: Patient requires hospitalization, for duodenal perforation with ulcer now with concerns for abscess and or bowel leak, acute delirium persistent leukocytosis hyponatremia, AKIRA Diagnoses Acute encephalopathy G93.40 Hypoalbuminemia E88.09 Hyperbilirubinemia E80.6 Thrombocytopenia D69.6 Leukocytosis D72.829 Transaminitis R74.01 Postoperative sepsis T81.44XA Duodenal ulcer, perforated K26.5 Acute hypernatremia E87.0 Acute kidney injury N17.9 Unspecified dementia with behavioral disturbance F03.91 Major depressive disorder, recurrent, severe with psychotic symptoms F33.3 Chronic post-traumatic stress disorder F43.12 Generalized anxiety disorder F41.1 Acute renal failure N17.9 Protein calorie malnutrition E46 Physical deconditioning R53.81
[2022-05-20] MEDS: vancomycin 1,000 MG in sodium chloride 0.9% 250 ML 250 MG IV (19:35)
--- NOTE | 2022-05-20 21:29 | PC.NURSE ---
The patient has an order for PO seroquel and the patient is NPO. This nurse attempted to give the patient a small drink of water and he put it in his cheek and refused to swallow and became to get agitated.
[2022-05-21] VITALS (7 sets, daily range): BP systolic 121–183; BP diastolic 59–89; PULSE 71–98; RESP 14–21; TEMP 36.3–37; O2SAT 92–97
[2022-05-21] MEDS: heparin 5,000 unit/mL INJ 1 mL 5000 UNIT SUBCUT ×3 (00:32→23:30)
[2022-05-21] MEDS: meropenem 500 MG in sodium chloride 0.9% (plus) 50 ML 100 MG IV ×2 (02:41→17:28)
[2022-05-21] MEDS: dextrose 5% 1,000 ML 100 ML IV (05:21)
[2022-05-21 05:23] LABS: Basophils % 0.2 %; Eosinophils # 0.2 10^3/uL (0.0-0.8); Eosinophils % 2.2 %; Hematocrit 32.8 % (42.0-52.0); Hemoglobin 9.9 g/dL (11.7-16.6); Lymphocytes # 0.9 10^3/uL (0.8-4.8); Lymphocytes % 8.2 %; Mean Corpuscular HGB Conc 30.2 g/dL (30.0-36.0); Mean Corpuscular Hemoglobin 27.6 pg (28.0-34.0); Mean Corpuscular Volume 91.4 fl (80-94); Mean Platelet Volume 12.1 fL (7.4-10.4); Monocytes # 1.3 10^3/uL (0.2-0.9); Monocytes % 12.6 %; Neutrophils # 7.94 10^3/uL (1.8-7.7); Neutrophils % 76.2 %; Nucleated Red Blood Cells % 0 %; Platelet Count 88 10^3/cmm (130-400); Red Blood Count 3.59 10^6/uL (4.1-5.3); Red Cell Distribution Width 17.7 % (12.1-15.1); White Blood Count 10.4 10^3/uL (4.0-10.0)
[2022-05-21 05:33] LABS: INR 1.14 (0.8-1.2)
[2022-05-21 05:54] LABS: NT Pro B Type Natriuretic Pept 1827 pg/mL (0-125); Procalcitonin 0.58 ng/mL (0-0.5)
[2022-05-21 06:06] LABS: Alanine Aminotransferase 64 U/L (0-41); Albumin Level 2.2 g/dL (3.5-5.2); Alkaline Phosphatase 128 U/L (40-130); Anion Gap 14.1 (5-19); Aspartate Amino Transferase 67 U/L (0-40); Blood Urea Nitrogen 51 mg/dL (8-23); C Reactive Protein 237.2 mg/L (0.0-4.9); Calcium 7.8 mg/dL (8.5-10.5); Carbon Dioxide 20 mmol/L (22-29); Chloride 108 mmol/L (98-107); Glucose 199 mg/dL (65-115); Osmolality Calculated 307 mOsm/kg (285-295); Phosphorus 1.7 mg/dL (2.5-4.5); Potassium 3.1 mmol/L (3.5-5.1); Sodium 139 mmol/L (136-145); Total Protein 5.2 g/dL (6.6-8.7)
--- NOTE | 2022-05-21 07:00 | XRR_ITS ---
PROCEDURE INFORMATION: Exam: XR Abdomen Exam date and time: 05/21/2022 8:21 AM Age: 71 years old Clinical indication: Bloating; Patient HX: Patient was uncooperative, best possible images obtained; Additional info: Perforated doudenal ulcer TECHNIQUE: Imaging protocol: Radiologic exam of the abdomen. Views: Frontal supine view of the abdomen. 1 View. COMPARISON: [place] [id number] 05/20/2022 12:15 PM FINDINGS: Tubes, catheters and devices: Surgical sundeep overlying the left abdomen. Surgical drain overlying the left abdomen. Gastrointestinal tract: No abnormally dilated air-filled bowel loops identified, within the limited field of view. Intraperitoneal space: The entirety of the abdomen is not included in the field of view. Unable to assess for free air in the abdomen. Bones/joints: Multilevel degenerative changes in the spine. XR/XR KUB portable [id number] IMPRESSION: 1. Limited evaluation. The entirety of the abdomen is not included in the field of view. Unable to assess for free air in the abdomen. 2. No abnormally dilated air-filled bowel loops identified, within the limited field of view.
--- NOTE | 2022-05-21 10:29 | PM.PN ---
Subjective Subjective: Patient seen and examined. He is refusing to participate in a swallow study or eat anything. He says his tongue is too swollen Vitals/I&O/Wt Last Vital Signs Temp 97.7 F 05/21/22 08:00 Pulse 71 05/21/22 08:00 Resp 14 05/21/22 08:00 BP 121/59 05/21/22 08:00 Pulse Ox 97 05/21/22 08:00 O2 Del Method 05/21/22 08:00 05/20/22 05/21/22 05/21/22 22:59 06:59 14:59 Intake Total 1610 / 3465 831.667 / 4296.667 Output Total 1200 / 1200 200 / 1400 Balance 410 / 2265 631.667 / 2896.667 Physical Exam Narrative: General: No acute distress Abdomen soft, distended, tender to palpation right upper quadrant, no guarding rebound or masses. Incision intact without erythema or exudate Drain without output Urinary Catheter Management: Coude: Cath Placed During This Visit: yes Reason for Continuing Indwelling Catheter: Other Urinary Catheter Date of Insertion: 05/15/22 Urinary Catheter Time of Insertion: 13:16 Data 05/21/22 05:03 05/21/22 05:03 Micro: Microbiology 05/17/22 06:56 Urine Culture - Final Urine,Clean Catch 05/15/22 11:55 Blood Culture - Final Blood NO GROWTH AFTER 5 DAYS 05/15/22 10:57 Blood Culture - Final Blood NO GROWTH AFTER 5 DAYS 05/20/22 10:20 Blood Culture - Preliminary Blood SPECIMEN COLLECTED 05/20/22 10:40 Blood Culture - Preliminary Blood SPECIMEN COLLECTED A&P Assessment and plan (1) Duodenal ulcer, perforated: Plan Status post exploratory laparotomy with modified Tico patch repair of perforated duodenal ulcer Protonix twice daily TPN Medical management per primary I was able to get a hold of the patient's daughter. The daughter and the son have agreed that they want the patient to be made palliative care. They do not want any further surgical intervention. They wish for the natural process to take place. They will be in town on Monday. Attestations Medical Necessity Statement*: Per primary Coding Level of Care Code Acute Code for g Fwd Diagnoses Duodenal ulcer, perforated K26.5
[2022-05-21] MEDS: pantoprazole 40 mg SDV IVP ×2 (11:22→17:43)
[2022-05-21] MEDS: ipratropium-albuterol 3 mL Neb INHALATION (12:02)
--- NOTE | 2022-05-21 12:47 | PM.PN ---
Subjective Subjective: doing well Medications: Reviewed: Yes Vitals/I&O/Wt Last Vital Signs Temp 97.7 F 05/21/22 08:00 Pulse 92 05/21/22 08:00 Resp 20 H 05/21/22 08:00 BP 121/59 05/21/22 08:00 Pulse Ox 92 05/21/22 08:00 O2 Del Method 05/21/22 08:00 05/20/22 05/21/22 05/21/22 22:59 06:59 14:59 Intake Total 1610 / 3465 831.667 / 4296.667 Output Total 1200 / 1200 200 / 1400 Balance 410 / 2265 631.667 / 2896.667 Physical Exam Narrative: awake , alert , no acute distress HEENT PEERLA no edema Urinary Catheter Management: Coude: Cath Placed During This Visit: yes Reason for Continuing Indwelling Catheter: Other Urinary Catheter Date of Insertion: 05/15/22 Urinary Catheter Time of Insertion: 13:16 Data 05/21/22 05:03 05/21/22 05:03 Micro: Microbiology 05/20/22 10:20 Blood Culture - Preliminary Blood NEGATIVE TO DATE 05/20/22 10:40 Blood Culture - Preliminary Blood NEGATIVE TO DATE 05/17/22 06:56 Urine Culture - Final Urine,Clean Catch 05/15/22 11:55 Blood Culture - Final Blood NO GROWTH AFTER 5 DAYS 05/15/22 10:57 Blood Culture - Final Blood NO GROWTH AFTER 5 DAYS A&P Assessment and plan (1) Acute kidney injury: Plan 1. Acute on chronic kidney disease: Patient's baseline creatinine is around 1.2, presented with AKIRA most likely ATN due to sepsiS and recent contrast exposure on 05/15/[address] abdomen. Creatinine was 4.7 , peaked at 5.1 and improved to 4.9 , nonoliguric, has metabolic acidosis -No acute indication for dialysis, will watch renal function closely -Avoid nephrotoxins and IV contrast studies -Continue IV fluids 2. Metabolic acidosis: Likely from lactic acidosis and AKIRA-order bicitra 3. Sepsis, status post perforated duodenal ulcer: On Zosyn, renally dose antibiotics. 4. Hypernatremia: improved , Currently on TPN, encourage PO free water intake , on D5 1/2 NS infusion - continue for now Time spent 35 minutes. Patient evaluated using audiovisual cart. Attestations Medical Necessity Statement*: Per primary Coding Level of Care Code Acute Code for Chg Fwd Diagnoses Acute kidney injury N17.9
--- NOTE | 2022-05-21 13:38 | PM.PN ---
Subjective Subjective: - Patient was examined multiple times throughout the evening yesterday -There was a discussion with general surgery and patient's family, patient's daughter Sybil, decision was made to forego any surgical interventions, try conservative therapy and pursue palliative care -I had an extensive discussion with patient's daughter this morning -Discussed again our concerns, for bowel leak, with abscess she does not want to have any surgical intervention done -She is okay with medical therapy for now, until she sees him on Monday and then she wants to go ahead and proceed with hospice and/or palliative care -She does not want to have any aggressive mentions she does not want to have any surgeries, I went over his CODE STATUS, she wants him to be DNR, she does not want him to be intubated -Above all she does not want have any aggressive mentions she wants him to be comfortable -She tells me that he has not eaten for the last 2 weeks when she was with him, I also discussed with her that yesterday evening and this morning I tried multiple times at bedside to try to feed him but he tells me specifically that he had energy, he had no energy yesterday to try to swallow the Gastrografin and this morning he had no energy to try some applesauce -This morning he looks quite pale, quite withdrawn, and I feel as if he is getting up, but he is alert to person, to place, not to time he rolls his eyes when asked who the president is, he does try to swat away my hand, at times does become agitated, but is easily redirectable -I advised his sister that I am worried that he is more encephalopathic from his infection, from his surgical site leak, and developing abscesses -She will, Monday she tells me Vitals/I&O/Wt Last Vital Signs Temp 98.2 F 05/21/22 12:00 Pulse 83 05/21/22 12:00 Resp 16 05/21/22 12:00 BP 131/73 05/21/22 12:00 Pulse Ox 96 05/21/22 12:00 O2 Del Method 05/21/22 12:00 05/20/22 05/21/22 05/21/22 22:59 06:59 14:59 Intake Total 1610 / 3465 831.667 / 4296.667 Output Total 1200 / 1200 200 / 1400 Balance 410 / 2265 631.667 / 2896.667 Physical Exam Const: COMMON NORMALS: no acute distress EXAM LIMITATIONS: altered mental status ORIENTATION/CONSCIOUSNESS: Yes awake, Yes oriented to person and Yes oriented to place; not oriented to time Resp: COMMON NORMALS: normal respiratory effort, No retractions, No use of accessory muscles and clear to auscultation bilaterally AUSCULTATION: clear to auscultation bilaterally Cardio: COMMON NORMALS: regular rate, regular rhythm, S1 normal heart sound present and S2 normal heart sound present RATE: regular rate RHYTHM: regular rhythm HEART SOUNDS: S1 normal heart sound present and S2 normal heart sound present GI: OTHER: Abdomen soft, distended, decreased bowel sounds, no guarding, no rebound, no rigidity Extremity: COMMON NORMALS: no pedal edema Neuro: SENSORIUM/ORIENTATION: Yes oriented to person, Yes oriented to place and No oriented to time Psych: OTHER: Becomes agitated during examination Urinary Catheter Management: Coude: Cath Placed During This Visit: yes Reason for Continuing Indwelling Catheter: Other Urinary Catheter Date of Insertion: 05/15/22 Urinary Catheter Time of Insertion: 13:16 Data 05/21/22 05:03 05/21/22 05:03 Micro: Microbiology 05/20/22 14:10 MRSA Culture - Final Nose 05/20/22 10:20 Blood Culture - Preliminary Blood NEGATIVE TO DATE 05/20/22 10:40 Blood Culture - Preliminary Blood NEGATIVE TO DATE 05/17/22 06:56 Urine Culture - Final Urine,Clean Catch 05/15/22 11:55 Blood Culture - Final Blood NO GROWTH AFTER 5 DAYS 05/15/22 10:57 Blood Culture - Final Blood NO GROWTH AFTER 5 DAYS A&P Assessment and plan (1) Acute encephalopathy: (2) Hypoalbuminemia: (3) Hyperbilirubinemia: (4) Thrombocytopenia: (5) Leukocytosis: (6) Transaminitis: (7) Postoperative sepsis: (8) Duodenal ulcer, perforated: (9) Acute hypernatremia: (10) Acute kidney injury: (11) Unspecified dementia with behavioral disturbance: (12) Major depressive disorder, recurrent, severe with psychotic symptoms: (13) Chronic post-traumatic stress disorder: (14) Generalized anxiety disorder: (15) Acute renal failure: (16) Protein calorie malnutrition: (17) Physical deconditioning: Plan Duodenal ulcer with perforation s/p Exploratory laparotomy Creation of omental flap Modified Tico patch repair of perforated duodenal ulcer -Due to persistent leukocytosis, fevers, elevated CRP, Pro-Hakeem, abdomen slightly distended, repeat CT scan abdomen pelvis was ordered -Repeat CT scan shows 1.? New fluid collections with air centered within the abdomen are ill-defined. Suspect developing abscesses. The largest collection is adjacent to the duodenal C-loop measuring 8.3 x 4.2 cm. Smaller collection which may be contiguous from the larger collection extending into the LEFT abdomen measuring 4.8 x 4.0 cm. There is a additional fluid which is free extending along the RIGHT paracolic gutter and into the mesentery. 2.? Numerous foci of free air within the peritoneal cavity. Largest amount near the repaired duodenal perforation. Findings are suspicious for recurrent or residual perforation. 3.? Surgical drain is noted but external to the developing complex fluid collections. -Patient was not able to do a Gastrografin study, I personally tried to get patient to do it, but he is too weak, high aspiration risk -Could consider NG tube placement and then trial --However patient has removed NG tube due to agitation -General surgery spoke to patient's daughter does not want to have any more surgery, no aggressive interventions, wants to pursue conservative intervention, palliative care -Spoke daughter, does not want to have aggressive interventions, does not want him to suffer, DNR/DNI, does not want to have surgery for her father, just wants him to be comfortable, okay with proceeding with antibiotic therapy and TPN for now she is going to come back on Monday to see him and decide to proceed with full palliative care and then -As we are foregoing any surgery, and any aggressive interventions, foregoing his surgery will proceed with clear liquid diet -I have broaden antibiotic coverage to vancomycin, changed to meropenem, continue antifungal coverage -Has not had a bowel movement -TPN started 05/18 at 63 cc/h, appreciate dietary recommendations -Patient has moderate protein calorie malnourishment -Heparin for DVT prophylaxis -DNR/DNI Acute delirium -With underlying dementia -Concerns for underlying duodenal ulcer with perforation with possible abscess and or bowel leak -Prolonged hospitalization, ICU delirium -Neurochecks, aspiration precautions -Monitor mentation closely Persistent leukocytosis -Likely secondary to concerns for recurrent or residual perforation, febrile abscess -Repeat blood cultures -Repeat urine cultures -Repeat sputum cultures -Flu, COVID -Follow inflammatory markers Hypernatremia related to dehydration discontinue D5 Continue TPN TPN to 30 cc/h Sodium has been gradually trending down Hypokalemia, will replace Hypophosphatemia we will replace Postoperative sepsis: Resolved Poor appetite diet, not eating Protein calorie malnutrition, deconditioning AKIRA: Nonoliguric ATN Nephrology consulted Creatinine remains 4.9 Patient is getting acidotic, I have given him 1 amp of bicarb 100 mEq Normal anion gap acidosis related to recent duodenal repair Guarded prognosis family only wants to continue conservative medical interventions, no aggressive interventions, DNR/DNI no chest compressions or defibrillation Patient will need care home placement once stable Patient is pleasant, oriented to himself, to place not to time, can follow some commands, but does become agitated such as swatting my hand away when I do a physical exam Disposition: Rehab: I have asked nursing staff to try to get him up to the side of bed, encourage sips and chips, Attestations Medical Necessity Statement*: Patient requires patient for perforated duodenal ulcer with concerns for recurrent perforation, or residual perforation, concerns for bile leak, concerns for developing abscess, inpatient, Diagnoses Acute encephalopathy G93.40 Hypoalbuminemia E88.09 Hyperbilirubinemia E80.6 Thrombocytopenia D69.6 Leukocytosis D72.829 Transaminitis R74.01 Postoperative sepsis T81.44XA Duodenal ulcer, perforated K26.5 Acute hypernatremia E87.0 Acute kidney injury N17.9 Unspecified dementia with behavioral disturbance F03.91 Major depressive disorder, recurrent, severe with psychotic symptoms F33.3 Chronic post-traumatic stress disorder F43.12 Generalized anxiety disorder F41.1 Acute renal failure N17.9 Protein calorie malnutrition E46 Physical deconditioning R53.81
[2022-05-21] MEDS: micafungin 100 MG in sodium chloride 0.9% (100 ml) 100 ML IV (15:30)
[2022-05-21] MEDS: nystatin 100,000 unit/mL UDC 5 mL 100000 UNIT PO (20:41)
[2022-05-22] VITALS: BP 138/62; PULSE 84; RESP 20; TEMP 36.3; O2SAT 96
[2022-05-22] MEDS: dextrose 5% 1,000 ML 100 ML IV ×2 (02:26→15:30)
[2022-05-22] MEDS: meropenem 500 MG in sodium chloride 0.9% (plus) 50 ML 100 MG IV ×2 (02:28→15:31)
[2022-05-22 04:00] VITALS: BP 136/82; PULSE 108; RESP 20; TEMP 36.4; O2SAT 96
[2022-05-22 05:37] LABS: Basophils % 0.3 %; Eosinophils # 0.2 10^3/uL (0.0-0.8); Eosinophils % 2.8 %; Hemoglobin 9.8 g/dL (11.7-16.6); Lymphocytes # 0.8 10^3/uL (0.8-4.8); Lymphocytes % 9.8 %; Mean Corpuscular HGB Conc 30.6 g/dL (30.0-36.0); Mean Corpuscular Hemoglobin 27.5 pg (28.0-34.0); Mean Corpuscular Volume 89.6 fl (80-94); Mean Platelet Volume 12.2 fL (7.4-10.4); Monocytes # 0.9 10^3/uL (0.2-0.9); Monocytes % 10.7 %; Neutrophils # 6.49 10^3/uL (1.8-7.7); Neutrophils % 75.4 %; Nucleated Red Blood Cells % 0 %; Platelet Count 107 10^3/cmm (130-400); Red Blood Count 3.57 10^6/uL (4.1-5.3); Red Cell Distribution Width 18.1 % (12.1-15.1); White Blood Count 8.6 10^3/uL (4.0-10.0)
[2022-05-22 06:05] LABS: Procalcitonin 0.53 ng/mL (0-0.5)
[2022-05-22 06:16] LABS: Alanine Aminotransferase 59 U/L (0-41); Albumin Level 2.1 g/dL (3.5-5.2); Alkaline Phosphatase 127 U/L (40-130); Anion Gap 15.3 (5-19); Aspartate Amino Transferase 64 U/L (0-40); Blood Urea Nitrogen 54 mg/dL (8-23); C Reactive Protein 197.7 mg/L (0.0-4.9); Carbon Dioxide 20 mmol/L (22-29); Chloride 108 mmol/L (98-107); Globulin 3.1 g/dL (1.3-4.6); Glucose 194 mg/dL (65-115); Magnesium 1.9 mg/dL (1.7-2.3); Osmolality Calculated 310 mOsm/kg (285-295); Phosphorus 2.3 mg/dL (2.5-4.5); Potassium 3.3 mmol/L (3.5-5.1); Sodium 140 mmol/L (136-145); Total Bilirubin 2.4 mg/dL (0.15-1.2); Total Protein 5.2 g/dL (6.6-8.7)
[2022-05-22 07:52] LABS: NT Pro B Type Natriuretic Pept 2508 pg/mL (0-125)
[2022-05-22 08:00] VITALS: BP 144/81; PULSE 75; PULSE 79; RESP 18; TEMP 36.7; O2SAT 96
[2022-05-22] MEDS: pantoprazole 40 mg SDV IVP ×2 (09:58→17:08)
[2022-05-22] MEDS: nystatin 100,000 unit/mL UDC 5 mL 100000 UNIT PO ×3 (09:58→20:32)
--- NOTE | 2022-05-22 11:04 | PC.SOCIAL ---
IMM update Imm updated and left copy of page 2 at bedside. Copy in chart initialed, dated and timed.
[2022-05-22 12:00] VITALS: BP 125/68; PULSE 81; RESP 16; TEMP 36.5; O2SAT 98
--- NOTE | 2022-05-22 13:00 | PM.PN ---
Subjective Subjective: no new complaints Medications: Reviewed: Yes Vitals/I&O/Wt Last Vital Signs Temp 98.0 F 05/22/22 08:00 Pulse 75 05/22/22 08:00 Resp 18 05/22/22 08:00 BP 144/81 05/22/22 08:00 Pulse Ox 96 05/22/22 08:00 O2 Del Method 05/22/22 08:00 05/21/22 05/22/22 05/22/22 22:59 06:59 14:59 Intake Total 2077.0909 / 2077.0909 175.000 / 2252.0909 Output Total 850 / 850 Balance 1227.0909 / 1227.0909 175.000 / 1402.0909 Physical Exam Narrative: awake , alert , no acute distress HEENT PEERLA no edema Urinary Catheter Management: Coude: Cath Placed During This Visit: yes Reason for Continuing Indwelling Catheter: Other Urinary Catheter Date of Insertion: 05/15/22 Urinary Catheter Time of Insertion: 13:16 Data 05/22/22 05:18 05/22/22 05:18 Micro: Microbiology 05/17/22 06:58 Blood Culture - Final Blood NO GROWTH AFTER 5 DAYS 05/17/22 06:57 Blood Culture - Final Blood NO GROWTH AFTER 5 DAYS 05/20/22 14:10 MRSA Culture - Final Nose 05/20/22 10:20 Blood Culture - Preliminary Blood NEGATIVE TO DATE 05/20/22 10:40 Blood Culture - Preliminary Blood NEGATIVE TO DATE A&P Assessment and plan (1) Acute kidney injury: Plan 1. Acute on chronic kidney disease: Patient's baseline creatinine is around 1.2, presented with AKIRA most likely ATN due to sepsiS and recent contrast exposure on 05/15/[address] abdomen. Creatinine was 4.7 , peaked at 5.1 and improved to 4.2 , -Avoid nephrotoxins and IV contrast studies -Continue IV fluids 2. Metabolic acidosis: Likely from lactic acidosis and AKIRA-c/w bicitra 3. Sepsis, status post perforated duodenal ulcer: On Zosyn, renally dose antibiotics. 4. Hypernatremia: improved , Currently on TPN, encourage PO free water intake , on D5 1/2 NS infusion - continue for now Time spent 35 minutes. Patient evaluated using audiovisual cart. Attestations Medical Necessity Statement*: Patient requires patient for perforated duodenal ulcer with concerns for recurrent perforation, or residual perforation, concerns for bile leak, concerns for developing abscess, inpatient, Coding Level of Care Code Acute Code for Chg Fwd Diagnoses Acute kidney injury N17.9
[2022-05-22] MEDS: heparin 5,000 unit/mL INJ 1 mL 5000 UNIT SUBCUT (13:05)
--- NOTE | 2022-05-22 13:45 | PM.PN ---
Subjective Subjective: I spent over 30 minutes at bedside with patient, he is alert to person, awake alert place, not to time he knows who I am he does know that he is in the hospital, I asked him what his plan was, and he told me that he wanted to go out of the hospital, I asked to make he wanted to eat, he tells me male, I asked him why, he was not able to give me a direct answer, I asked him if he was depressed, and he said no, asked if there is anything I could get for him and he said Sprite, when I told him I was getting get a Sprite for him and he was cannot see if he could drink it he tells me no I do not want it, he tells me he wants to get better, but is not able to elaborate, remains quite withdrawn, but less agitated this morning, much more alert, I even tried again for him to eat some applesauce, but he kept refusing, I asked him if there is any possibility he could swallow pills he says no, (NG tube to help feeding he tells me no, I asked him if there is anything I can do for him, and he was unable to provide an answer, able to follow commands such as squeezing my fingers, he is able to move his legs bilaterally, Vitals/I&O/Wt Last Vital Signs Temp 97.7 F 05/22/22 12:00 Pulse 81 05/22/22 12:00 Resp 16 05/22/22 12:00 BP 125/68 05/22/22 12:00 Pulse Ox 98 05/22/22 12:00 O2 Del Method 05/22/22 12:00 05/21/22 05/22/22 05/22/22 22:59 06:59 14:59 Intake Total 2077.0909 / 2077.0909 175.000 / 2252.0909 Output Total 850 / 850 Balance 1227.0909 / 1227.0909 175.000 / 1402.0909 Physical Exam Const: COMMON NORMALS: no acute distress ORIENTATION/CONSCIOUSNESS: Yes awake, Yes oriented to person and Yes oriented to place; not oriented to time Resp: COMMON NORMALS: normal respiratory effort, No retractions, No use of accessory muscles and clear to auscultation bilaterally AUSCULTATION: clear to auscultation bilaterally Cardio: COMMON NORMALS: regular rate, regular rhythm, S1 normal heart sound present and S2 normal heart sound present RATE: regular rate RHYTHM: regular rhythm HEART SOUNDS: S1 normal heart sound present and S2 normal heart sound present GI: OTHER: Surgical drain in place, surgical sundeep in place, clean and dry, abdomen distended, decreased bowel sounds, soft, no guarding, no rebound, no rigidity Extremity: COMMON NORMALS: no pedal edema Neuro: SENSORIUM/ORIENTATION: Yes oriented to person, Yes oriented to place and No oriented to time Psych: OTHER: Is withdrawn, seems depressed, poor eye contact Urinary Catheter Management: Coude: Cath Placed During This Visit: yes Reason for Continuing Indwelling Catheter: Other Urinary Catheter Date of Insertion: 05/15/22 Urinary Catheter Time of Insertion: 13:16 Data 05/22/22 05:18 05/22/22 05:18 Micro: Microbiology 05/17/22 06:58 Blood Culture - Final Blood NO GROWTH AFTER 5 DAYS 05/17/22 06:57 Blood Culture - Final Blood NO GROWTH AFTER 5 DAYS 05/20/22 14:10 MRSA Culture - Final Nose 05/20/22 10:20 Blood Culture - Preliminary Blood NEGATIVE TO DATE 05/20/22 10:40 Blood Culture - Preliminary Blood NEGATIVE TO DATE A&P Assessment and plan (1) Acute encephalopathy: (2) Hypoalbuminemia: (3) Hyperbilirubinemia: (4) Thrombocytopenia: (5) Leukocytosis: (6) Transaminitis: (7) Postoperative sepsis: (8) Duodenal ulcer, perforated: (9) Acute hypernatremia: (10) Acute kidney injury: (11) Unspecified dementia with behavioral disturbance: (12) Major depressive disorder, recurrent, severe with psychotic symptoms: (13) Chronic post-traumatic stress disorder: (14) Generalized anxiety disorder: (15) Acute renal failure: (16) Protein calorie malnutrition: (17) Physical deconditioning: Plan Duodenal ulcer with perforation s/p Exploratory laparotomy Creation of omental flap Modified Tico patch repair of perforated duodenal ulcer Now concerns for recurrent or residual perforation, leak, abscess -Due to persistent leukocytosis, fevers, elevated CRP, Pro-Hakeem, abdomen slightly distended, repeat CT scan abdomen pelvis was ordered -Repeat CT scan shows 1.? New fluid collections with air centered within the abdomen are ill-defined. Suspect developing abscesses. The largest collection is adjacent to the duodenal C-loop measuring 8.3 x 4.2 cm. Smaller collection which may be contiguous from the larger collection extending into the LEFT abdomen measuring 4.8 x 4.0 cm. There is a additional fluid which is free extending along the RIGHT paracolic gutter and into the mesentery. 2.? Numerous foci of free air within the peritoneal cavity. Largest amount near the repaired duodenal perforation. Findings are suspicious for recurrent or residual perforation. 3.? Surgical drain is noted but external to the developing complex fluid collections. -Patient was not able to do a Gastrografin study, I personally tried to get patient to do it, but he is too weak, high aspiration risk -Could consider NG tube placement and then trial --However patient has removed NG tube due to agitation -General surgery spoke to patient's daughter does not want to have any more surgery, no aggressive interventions, wants to pursue conservative intervention, palliative care -Spoke daughter, does not want to have aggressive interventions, does not want him to suffer, DNR/DNI, does not want to have surgery for her father, just wants him to be comfortable, okay with proceeding with antibiotic therapy and TPN for now she is going to come back on Monday to see him and decide to proceed with full palliative care and then -As we are foregoing any surgery, and any aggressive interventions, foregoing his surgery will proceed with clear liquid diet, however patient refuses to take anything orally -I have broaden antibiotic coverage to vancomycin, changed to meropenem, continue antifungal coverage -Has not had a bowel movement -TPN started 05/18 at 63 cc/h, appreciate dietary recommendations -Patient has moderate protein calorie malnourishment -Heparin for DVT prophylaxis -DNR/DNI Acute delirium -With underlying dementia -Concerns for underlying duodenal ulcer with perforation with possible abscess and and/or leak from surgical site -Prolonged hospitalization, ICU delirium -Neurochecks, aspiration precautions -Monitor mentation closely Persistent leukocytosis -As above -Likely secondary to concerns for recurrent or residual perforation or leak, with concerns for abscesses -Repeat blood cultures -Repeat urine cultures -Repeat sputum cultures -Flu, COVID -Follow inflammatory markers Hypernatremia related to dehydration Continue D5 normal saline Continue TPN TPN to 30 cc/h Sodium has been gradually trending down Hypokalemia, will replace Hypophosphatemia we will replace Transaminitis, with hyperbilirubinemia, secondary to abdominal surgery as above, with complications as above Postoperative sepsis: Resolved Poor appetite diet, not eating Protein calorie malnutrition, deconditioning AKIRA: Nonoliguric ATN Nephrology consulted Creatinine remains 4.2 Patient is getting acidotic, I have given him 1 amp of bicarb 100 mEq Normal anion gap acidosis related to recent duodenal repair Guarded prognosis family only wants to continue conservative medical interventions, no aggressive interventions, DNR/DNI no chest compressions or defibrillation Patient will need group home placement on hospice versus comfort care Disposition: Rehab: I have asked nursing staff to try to get him up to the side of bed, encourage sips and chips, Attestations Medical Necessity Statement*: Patient requires hospitalization for duodenal ulcer status post perforation, now with concerns for surgical site bleeding, perforation, abscess, hypokalemia, hypophosphatemia, hyponatremia, AKIRA Coding Level of Care Code 20108 Moderate Time for a total of 30 minutes, includes reviewing past or interval history, examining/interviewing patient, placing orders, counseling patient/family/other support, discussing plan of care with staff, documenting encounter and coordinating care Diagnoses Acute encephalopathy G93.40 Hypoalbuminemia E88.09 Hyperbilirubinemia E80.6 Thrombocytopenia D69.6 Leukocytosis D72.829 Transaminitis R74.01 Postoperative sepsis T81.44XA Duodenal ulcer, perforated K26.5 Acute hypernatremia E87.0 Acute kidney injury N17.9 Unspecified dementia with behavioral disturbance F03.91 Major depressive disorder, recurrent, severe with psychotic symptoms F33.3 Chronic post-traumatic stress disorder F43.12 Generalized anxiety disorder F41.1 Acute renal failure N17.9 Protein calorie malnutrition E46 Physical deconditioning R53.81
--- NOTE | 2022-05-22 15:08 | PM.PN ---
Subjective Subjective: Patient seen and examined. He is refusing to participate in a swallow study or eat anything. He says his tongue is too swollen. Seems a little less confused today Vitals/I&O/Wt Last Vital Signs Temp 97.7 F 05/22/22 12:00 Pulse 81 05/22/22 12:00 Resp 16 05/22/22 12:00 BP 125/68 05/22/22 12:00 Pulse Ox 98 05/22/22 12:00 O2 Del Method 05/22/22 12:00 05/22/22 05/22/22 05/22/22 06:59 14:59 22:59 Intake Total 175.000 / 2252.0909 Balance 175.000 / 1402.0909 Physical Exam Narrative: General: No acute distress Abdomen soft, distended, tender to palpation right upper quadrant, no guarding rebound or masses. Incision intact without erythema or exudate Drain without output Urinary Catheter Management: Coude: Cath Placed During This Visit: yes Reason for Continuing Indwelling Catheter: Other Urinary Catheter Date of Insertion: 05/15/22 Urinary Catheter Time of Insertion: 13:16 Data 05/22/22 05:18 05/22/22 05:18 Micro: Microbiology 05/17/22 06:58 Blood Culture - Final Blood NO GROWTH AFTER 5 DAYS 05/17/22 06:57 Blood Culture - Final Blood NO GROWTH AFTER 5 DAYS 05/20/22 14:10 MRSA Culture - Final Nose 05/20/22 10:20 Blood Culture - Preliminary Blood NEGATIVE TO DATE 05/20/22 10:40 Blood Culture - Preliminary Blood NEGATIVE TO DATE A&P Assessment and plan (1) Duodenal ulcer, perforated: Plan Status post exploratory laparotomy with modified Tico patch repair of perforated duodenal ulcer Protonix twice daily TPN Medical management per primary I was able to get a hold of the patient's daughter. The daughter and the son have agreed that they want the patient to be made palliative care. They do not want any further surgical intervention. They wish for the natural process to take place. They will be in town on Monday. Attestations Medical Necessity Statement*: Per primary Coding Level of Care Code Acute Code for Chg Fwd Diagnoses Duodenal ulcer, perforated K26.5
[2022-05-22 16:00] VITALS: BP 153/63; PULSE 73; RESP 18; TEMP 36.3; O2SAT 95
[2022-05-22] MEDS: vancomycin 1,000 MG in sodium chloride 0.9% 250 ML 250 MG IV (16:56)
[2022-05-22] MEDS: micafungin 100 MG in sodium chloride 0.9% (100 ml) 100 ML IV (18:10)
[2022-05-22 20:00] VITALS: BP 164/75; PULSE 73; PULSE 74; RESP 18; RESP 23; TEMP 36.3; O2SAT 90; O2SAT 95
[2022-05-23] VITALS (8 sets, daily range): BP systolic 148–159; BP diastolic 53–66; PULSE 73–92; RESP 18–24; TEMP 35.8–36.8; O2SAT 93–95
[2022-05-23] MEDS: heparin 5,000 unit/mL INJ 1 mL 5000 UNIT SUBCUT ×2 (00:42→12:14)
[2022-05-23] MEDS: meropenem 500 MG in sodium chloride 0.9% (plus) 50 ML 100 MG IV ×2 (02:01→13:43)
[2022-05-23] MEDS: dextrose 5% 1,000 ML 100 ML IV ×2 (02:02→12:14)
[2022-05-23 04:19] LABS: Basophils % 0.4 %; Eosinophils # 0.2 10^3/uL (0.0-0.8); Eosinophils % 2.9 %; Hematocrit 30.8 % (42.0-52.0); Hemoglobin 9.3 g/dL (11.7-16.6); Lymphocytes % 12.9 %; Mean Corpuscular HGB Conc 30.2 g/dL (30.0-36.0); Mean Corpuscular Hemoglobin 27.7 pg (28.0-34.0); Mean Corpuscular Volume 91.7 fl (80-94); Mean Platelet Volume 12.3 fL (7.4-10.4); Monocytes # 0.9 10^3/uL (0.2-0.9); Monocytes % 10.8 %; Neutrophils # 5.73 10^3/uL (1.8-7.7); Neutrophils % 71.5 %; Nucleated Red Blood Cells % 0 %; Platelet Count 112 10^3/cmm (130-400); Red Blood Count 3.36 10^6/uL (4.1-5.3)
[2022-05-23 04:49] LABS: Alanine Aminotransferase 57 U/L (0-41); Albumin Level 2.1 g/dL (3.5-5.2); Alkaline Phosphatase 126 U/L (40-130); Anion Gap 15.5 (5-19); Aspartate Amino Transferase 65 U/L (0-40); Blood Urea Nitrogen 50 mg/dL (8-23); C Reactive Protein 175.4 mg/L (0.0-4.9); Calcium 7.5 mg/dL (8.5-10.5); Carbon Dioxide 20 mmol/L (22-29); Chloride 112 mmol/L (98-107); Globulin 2.2 g/dL (1.3-4.6); Glucose 179 mg/dL (65-115); Magnesium 1.7 mg/dL (1.7-2.3); Osmolality Calculated 316 mOsm/kg (285-295); Phosphorus 2.7 mg/dL (2.5-4.5); Potassium 3.5 mmol/L (3.5-5.1); Sodium 144 mmol/L (136-145); Total Protein 4.3 g/dL (6.6-8.7)
[2022-05-23 04:55] LABS: NT Pro B Type Natriuretic Pept 2411 pg/mL (0-125); Procalcitonin 0.43 ng/mL (0-0.5)
[2022-05-23 05:14] LABS: Slide Review Slide Review Perform
--- NOTE | 2022-05-23 07:32 | P.PN_ITS ---
Subjective Subjective: confused in bed. not able to give an accurate ROS. has abd pain. not eating. Medications: Reviewed: Yes Medication Review Details: Current Medications Acetaminophen (Acetaminophen 500 Mg Tablet) 500 mg PO Q4H PRN PRN Reason: fever Acetaminophen (Acetaminophen 650 Mg Supp) 650 mg CO Q6H PRN PRN Reason: FEVER >100.4 Last Admin: 05/17/22 22:14 Dose: 650 mg Albuterol/Ipratropium (Ipratropium-Albuterol 3 Ml Neb) 3 ml INHALATION Q6H PRN PRN Reason: SHORTNESS OF BREATH Last Admin: 05/21/22 12:02 Dose: 3 ml Heparin Sodium (Porcine) (Heparin 5,000 Unit/Ml Inj 1 Ml) 5,000 unit SUBCUT Q12H [facility] Last Admin: 05/23/22 00:42 Dose: 5,000 unit Dextrose (D5w) 1,000 mls @ 100 mls/hr IV .Q10H [facility] Last Admin: 05/23/22 02:02 Dose: 100 mls/hr Multivitamins 10 ml/ Amino (Acids) 1,010 mls @ 30 mls/hr IV .Q24H [facility] Last Admin: 05/22/22 18:12 Dose: 30 mls/hr Fat Emulsion Intravenous (Intralipid 20%) 125 mls @ 10.417 mls/hr IV Q24H [facility] Last Admin: 05/22/22 18:11 Dose: 10.42 mls/hr Vancomycin HCl 1,000 mg/ (Sodium Chloride) 250 mls @ 250 mls/hr IV Q48H [facility]; Protocol Last Infusion: 05/22/22 19:32 Dose: Infused Meropenem 500 mg/ Sodium (Chloride) 50 mls @ 100 mls/hr IV Q12H [facility] Last Infusion: 05/23/22 02:40 Dose: Infused Micafungin Sodium 100 mg/ (Sodium Chloride) 100 mls @ 100 mls/hr IV Q24H [facility] Last Infusion: 05/22/22 19:17 Dose: Infused Lanolin (Lanolin Oint 7 Gm) 1 applic TOPICAL PRN PRN PRN Reason: DRYNESS Last Admin: 05/16/22 21:18 Dose: 1 applic Morphine Sulfate (Morphine 4 Mg/Ml Sdv 1 Ml) 2 mg IVP Q4H PRN PRN Reason: SEVERE PAIN Last Admin: 05/19/22 10:49 Dose: 2 mg Naloxone HCl (Naloxone 0.4 Mg/Ml Sdv) 0.4 mg IVP PRN PRN PRN Reason: RESPIRATORY RATE < 8/MIN Non-Formulary Medication (Free Water) 250 ml NG-TUBE 5XD [facility] Last Admin: 05/23/22 06:00 Dose: Not Given Nystatin (Nystatin 100,000 Unit/Ml Udc 5 Ml) 100,000 unit PO QID [facility] Last Admin: 05/22/22 20:32 Dose: 100,000 unit Olanzapine (Olanzapine 10 Mg Vial) 5 mg IM BEDTIME PRN PRN Reason: AGITATION Ondansetron HCl (Ondansetron 2 Mg/Ml Sdv 2 Ml) 4 mg IVP Q6H PRN PRN Reason: NAUSEA AND VOMITING Pantoprazole Sodium (Pantoprazole 40 Mg Sdv) 40 mg IVP BID [facility] Last Admin: 05/22/22 17:08 Dose: 40 mg Quetiapine Fumarate (Quetiapine 25 Mg Tablet) 50 mg PO BEDTIME [facility] Last Admin: 05/22/22 20:37 Dose: Not Given Vitals/I&O/Wt Last Vital Signs Temp 98.2 F 05/23/22 07:30 Pulse 92 05/23/22 07:30 Resp 20 H 05/23/22 07:30 BP 159/60 05/23/22 07:30 Pulse Ox 95 05/23/22 07:30 O2 Del Method 05/23/22 07:30 05/22/22 05/23/22 05/23/22 22:59 06:59 14:59 Intake Total 1486.5909 / 2486.5909 1050 / 3536.5909 Output Total 300 / 300 425 / 725 Balance 1186.5909 / 2186.5909 122 / 281.5909 Physical Exam Narrative: obese, uncomfortable in bed vss heent- nc/at, eomi,anicteric neck supple lungs wheezes, dull bases heart reg abd soft, + tubes, + tender ext 1+ b/l edema neuro- confused Urinary Catheter Management: Coude: Cath Placed During This Visit: yes Reason for Continuing Indwelling Catheter: Other Urinary Catheter Date of Insertion: 05/15/22 Urinary Catheter Time of Insertion: 13:16 Data 05/23/22 03:33 05/23/22 03:33 Micro: Microbiology 05/17/22 06:58 Blood Culture - Final Blood NO GROWTH AFTER 5 DAYS 05/17/22 06:57 Blood Culture - Final Blood NO GROWTH AFTER 5 DAYS A&P Assessment and plan (1) Acute renal failure: 71 yr old man s/p perf duodenal ulcer 1. AKIRA from ATN and CI- AKIRA -cr improving 2. mild hypernatremia- give more water- eith iv per po 3. hypokalemia and hypomagnesemia- replete 4. inc agma- as albumin is 2- from akira. can check lacatet 5. cont tpn 6. Q abdominal abscess- pt and family do not want new interventions -agree w/ considering comfort care seen and examined w/ RN- telehealth visit time spent > 30 minutes Plan as above Attestations Medical Necessity Statement*: abd abscess, electrolytes abnormalities, akira Time Spent in Patient Care: 16 - 35 minutes (>than 50% of time spent in counselling and/or direct pt care on unit) . Coding Level of Care Code Acute Code for g Fwd Diagnoses Acute renal failure N17.9
[2022-05-23 08:22] LABS: Vancomycin Random 15.7 ug/mL (20.0-40.0)
[2022-05-23] MEDS: pantoprazole 40 mg SDV IVP (08:47)
[2022-05-23] MEDS: nystatin 100,000 unit/mL UDC 5 mL 100000 UNIT PO ×2 (09:59→12:15)
[2022-05-23] MEDS: morphine 4 mg/mL SDV 1 mL 2 MG IVP (14:23)
--- NOTE | 2022-05-23 14:32 | P.PN_ITS ---
Subjective Subjective: - Patient was seen this morning, he does open his eyes, he is quite withdrawn, still has a poor appetite, still refuses to eat, looks quite pale, he does awaken, but falls back asleep -I had an extensive family meeting with patient's daughter, and their family at bedside this afternoon -I discussed the case in detail with him, asked him if he had any questions -Discussed concerns for surgical site leak, and or recurrent perforation and/or abscess around surgical site, persistent encephalopathy, sepsis, -Family does not want to do any more medical interventions -Family does not want to do any surgical interventions -They just want their father to be comfortable, uses pain eases suffering -To the family he looks worse today, he is ready to go his daughter tells me -Patient's daughter tells me that the first thing he said was he he is ready to go, he does not want any more medications, he wants to go home, -Patient's daughter wants to proceed onto full hospice -Discussed risks and benefits of hospice, she voiced understanding, all questions agreed to proceed -She wants us to stop all his medications, and just treat his pain and street is suffering -I advised that we will keep him here in the hospital until his end-of-life contract process is complete, which might be 48 hours, and then likely will move him to residential on hospice, she is agreeable - Vitals/I&O/Wt Last Vital Signs Temp 98.1 F 05/23/22 11:26 Pulse 91 05/23/22 11:26 Resp 18 05/23/22 14:23 BP 148/65 05/23/22 11:26 Pulse Ox 93 05/23/22 11:26 O2 Del Method 05/23/22 11:26 05/22/22 05/23/22 05/23/22 22:59 06:59 14:59 Intake Total 1486.5909 / 2486.5909 1050 / 3536.5909 1332 / 1332 Output Total 300 / 300 425 / 725 Balance 5701.5909 / 2186.5909 625 / 2811.5909 1332 / 1332 Physical Exam Const: COMMON NORMALS: no acute distress EXAM LIMITATIONS: altered mental status ORIENTATION/CONSCIOUSNESS: Yes awake and Yes oriented to person; not oriented to place and not oriented to time OTHER: Looks pale, difficult to arouse at times Resp: COMMON NORMALS: normal respiratory effort, No retractions, No use of accessory muscles and clear to auscultation bilaterally AUSCULTATION: clear to auscultation bilaterally Cardio: COMMON NORMALS: regular rate, regular rhythm, S1 normal heart sound present and S2 normal heart sound present RATE: regular rate RHYTHM: regular rhythm HEART SOUNDS: S1 normal heart sound present and S2 normal heart sound present GI: OTHER: Surgical drain in in place, stable in place, clean and dry Abdomen slightly distended, decreased bowel sounds, no tenderness Extremity: COMMON NORMALS: no pedal edema Neuro: SENSORIUM/ORIENTATION: Yes oriented to person, No oriented to place and No oriented to time Urinary Catheter Management: Coude: Cath Placed During This Visit: yes Reason for Continuing Indwelling Catheter: Other Urinary Catheter Date of Insertion: 05/15/22 Urinary Catheter Time of Insertion: 13:16 Data 05/23/22 03:33 05/23/22 03:33 A&P Assessment and plan (1) Acute encephalopathy: (2) Hypoalbuminemia: (3) Hyperbilirubinemia: (4) Thrombocytopenia: (5) Leukocytosis: (6) Transaminitis: (7) Postoperative sepsis: (8) Duodenal ulcer, perforated: (9) Acute hypernatremia: (10) Acute kidney injury: (11) Unspecified dementia with behavioral disturbance: (12) Major depressive disorder, recurrent, severe with psychotic symptoms: (13) Chronic post-traumatic stress disorder: (14) Generalized anxiety disorder: (15) Acute renal failure: (16) Protein calorie malnutrition: (17) Physical deconditioning: (18) Need for comfort care: (19) Encounter for hospice care discussion: Plan We will go ahead and proceed with comfort care/hospice, as per family wishes, as per family wishes will stop medical interventions, await end-of-life contract, will likely discharge to [facility] on comfort care/hospice, disussed with to will proceed Duodenal ulcer with perforatio we will go aheadn s/p Exploratory laparotomy Creation of omental flap Modified Tico patch repair of perforated duodenal ulcer Now concerns for recurrent or residual perforation, leak, abscess -Due to persistent leukocytosis, fevers, elevated CRP, Pro-Hakeem, abdomen slightly distended, repeat CT scan abdomen pelvis was ordered -Repeat CT scan shows 1.? New fluid collections with air centered within the abdomen are ill-defined. Suspect developing abscesses. The largest collection is adjacent to the duodenal C-loop measuring 8.3 x 4.2 cm. Smaller collection which may be contiguous from the larger collection extending into the LEFT abdomen measuring 4.8 x 4.0 cm. There is a additional fluid which is free extending along the RIGHT paracolic gutter and into the mesentery. 2.? Numerous foci of free air within the peritoneal cavity. Largest amount near the repaired duodenal perforation. Findings are suspicious for recurrent or residual perforation. 3.? Surgical drain is noted but external to the developing complex fluid collections. -Patient was not able to do a Gastrografin study, I personally tried to get p atient to do it, but he is too weak, high aspiration risk -Could consider NG tube placement and then trial --However patient has removed NG tube due to agitation -General surgery spoke to patient's daughter does not want to have any more surgery, no aggressive interventions, wants to pursue conservative intervention, palliative care -Spoke daughter, does not want to have aggressive interventions, does not want him to suffer, DNR/DNI, does not want to have surgery for her father, just wants him to be comfortable, okay with proceeding with antibiotic therapy and TPN for now she is going to come back on Monday to see him and decide to proceed with full palliative care and then -As we are foregoing any surgery, and any aggressive interventions, foregoing his surgery will proceed with clear liquid diet, however patient refuses to take anything orally -I have broaden antibiotic coverage to vancomycin, changed to meropenem, continue antifungal coverage -Has not had a bowel movement -TPN started 05/18 at 63 cc/h, appreciate dietary recommendations -Patient has moderate protein calorie malnourishment -Heparin for DVT prophylaxis -DNR/DNI Acute delirium -With underlying dementia -Concerns for underlying duodenal ulcer with perforation with possible abscess and and/or leak from surgical site -Prolonged hospitalization, ICU delirium -Neurochecks, aspiration precautions -Monitor mentation closely Persistent leukocytosis -As above -Likely secondary to concerns for recurrent or residual perforation or leak, with concerns for abscesses -Repeat blood cultures -Repeat urine cultures -Repeat sputum cultures -Flu, COVID -Follow inflammatory markers Hypernatremia related to dehydration Continue D5 normal saline Continue TPN TPN to 30 cc/h Sodium has been gradually trending down Hypokalemia, will replace Hypophosphatemia we will replace Transaminitis, with hyperbilirubinemia, secondary to abdominal surgery as above, with complications as above Postoperative sepsis: Resolved Poor appetite diet, not eating Protein calorie malnutrition, deconditioning AKIRA: Nonoliguric ATN Nephrology consulted Creatinine remains 4.2 Patient is getting acidotic, I have given him 1 amp of bicarb 100 mEq Normal anion gap acidosis related to recent duodenal repair Guarded prognosis family only wants to continue conservative medical interventions, no aggressive interventions, DNR/DNI no chest compressions or defibrillation Patient will need residential placement on hospice versus comfort care Disposition: Rehab: I have asked nursing staff to try to get him up to the side of bed, encourage sips and chips, Attestations Medical Necessity Statement*: Patient requires hospitalization, for inpatient hospice, comfort care Coding Level of Care Code 83241 High Time for a total of 60 minutes, includes reviewing past or interval history, examining/interviewing patient, placing orders, counseling patient/family/other support, updating patient/family/other support, discussing plan of care with staff, communicating with other healthcare providers, documenting encounter and coordinating care Diagnoses Acute encephalopathy G93.40 Hypoalbuminemia E88.09 Hyperbilirubinemia E80.6 Thrombocytopenia D69.6 Leukocytosis D72.829 Transaminitis R74.01 Postoperative sepsis T81.44XA Duodenal ulcer, perforated K26.5 Acute hypernatremia E87.0 Acute kidney injury N17.9 Unspecified dementia with behavioral disturbance F03.91 Major depressive disorder, recurrent, severe with psychotic symptoms F33.3 Chronic post-traumatic stress disorder F43.12 Generalized anxiety disorder F41.1 Acute renal failure N17.9 Protein calorie malnutrition E46 Physical deconditioning R53.81 Need for comfort care Encounter for hospice care discussion Z71.89
[2022-05-23] MEDS: morphine 4 mg/mL SDV 1 mL IVP ×2 (19:00→22:17)
[2022-05-24] VITALS (8 sets, daily range): BP systolic 100–153; BP diastolic 53–71; PULSE 95–110; RESP 9–20; TEMP 36.4–36.8; O2SAT 95–99
[2022-05-24] MEDS: morphine 4 mg/mL SDV 1 mL IVP ×5 (03:06→23:36)
[2022-05-24] MEDS: LORazepam 2 mg/mL INJ 1 mL IVP ×2 (08:14→22:09)
[2022-05-24] MEDS: morphine 10 mg/0.5 mL oral liq UD SUBLINGUAL (13:59)
--- NOTE | 2022-05-24 13:59 | P.PN_ITS ---
Subjective Subjective: Patient was seen this morning, he is resting, does not awaken, does not respond to his name, patient's family at bedside, tells me that his pain is more well controlled, they have agreeable for him to go to [facility] on hospice, Vitals/I&O/Wt Last Vital Signs Temp 97.6 F 05/24/22 08:12 Pulse 110 H 05/24/22 08:12 Resp 18 05/24/22 11:24 BP 153/71 05/24/22 08:12 Pulse Ox 95 05/24/22 08:12 O2 Del Method 05/24/22 08:12 05/23/22 05/24/22 05/24/22 22:59 06:59 14:59 Intake Total 0 / 2184.5 Output Total 1250 / 1250 775 / 2025 Balance -1250 / 934.5 -775 / 159.5 Physical Exam Const: COMMON NORMALS: no acute distress OTHER: Does not awaken to name Resp: COMMON NORMALS: normal respiratory effort, No retractions, No use of accessory muscles and clear to auscultation bilaterally AUSCULTATION: clear to auscultation bilaterally Cardio: COMMON NORMALS: regular rate, regular rhythm, S1 normal heart sound present and S2 normal heart sound present RATE: regular rate RHYTHM: regular rhythm HEART SOUNDS: S1 normal heart sound present and S2 normal heart sound present GI: COMMON NORMALS: Normal to inspection, nondistended, normoactive bowel sounds present and non-tender Extremity: COMMON NORMALS: no pedal edema Urinary Catheter Management: Coude: Cath Placed During This Visit: yes Reason for Continuing Indwelling Catheter: Other Urinary Catheter Date of Insertion: 05/15/22 Urinary Catheter Time of Insertion: 13:16 Data 05/23/22 03:33 05/23/22 03:33 A&P Assessment and plan (1) Acute encephalopathy: (2) Hypoalbuminemia: (3) Hyperbilirubinemia: (4) Thrombocytopenia: (5) Leukocytosis: (6) Transaminitis: (7) Postoperative sepsis: (8) Duodenal ulcer, perforated: (9) Acute hypernatremia: (10) Acute kidney injury: (11) Unspecified dementia with behavioral disturbance: (12) Major depressive disorder, recurrent, severe with psychotic symptoms: (13) Chronic post-traumatic stress disorder: (14) Generalized anxiety disorder: (15) Acute renal failure: (16) Protein calorie malnutrition: (17) Physical deconditioning: (18) Need for comfort care: (19) Encounter for hospice care discussion: Plan Proceeding with hospice, at [facility], watch for 24 hours likely discharge tomorrow, waiting end-of-life contract Duodenal ulcer with perforatio we will go aheadn s/p Exploratory laparotomy Creation of omental flap Modified [place] patch repair of perforated duodenal ulcer Now concerns for recurrent or residual perforation, leak, abscess -Due to persistent leukocytosis, fevers, elevated CRP, Pro-Hakeem, abdomen slightly distended, repeat CT scan abdomen pelvis was ordered -Repeat CT scan shows 1.? New fluid collections with air centered within the abdomen are ill-defined. Suspect developing abscesses. The largest collection is adjacent to the duodenal C-loop measuring 8.3 x 4.2 cm. Smaller collection which may be contiguous from the larger collection extending into the LEFT abdomen measuring 4.8 x 4.0 cm. There is a additional fluid which is free extending along the RIGHT paracolic gutter and into the mesentery. 2.? Numerous foci of free air within the peritoneal cavity. Largest amount near the repaired duodenal perforation. Findings are suspicious for recurrent or residual perforation. 3.? Surgical drain is noted but external to the developing complex fluid collections. -Patient was not able to do a Gastrografin study, I personally tried to get patient to do it, but he is too weak, high aspiration risk -Could consider NG tube placement and then trial --However patient has removed NG tube due to agitation -General surgery spoke to patient's daughter does not want to have any more surgery, no aggressive interventions, wants to pursue conservative intervention, palliative care -Spoke daughter, does not want to have aggressive interventions, does not want him to suffer, DNR/DNI, does not want to have surgery for her father, just wants him to be comfortable, okay with proceeding with antibiotic therapy and TPN for now she is going to come back on Monday to see him and decide to proceed with full palliative care and then -As we are foregoing any surgery, and any aggressive interventions, foregoing his surgery will proceed with clear liquid diet, however patient refuses to take anything orally -I have broaden antibiotic coverage to vancomycin, changed to meropenem, continue antifungal coverage -Has not had a bowel movement -TPN started 05/18 at 63 cc/h, appreciate dietary recommendations -Patient has moderate protein calorie malnourishment -Heparin for DVT prophylaxis -DNR/DNI Acute delirium -With underlying dementia -Concerns for underlying duodenal ulcer with perforation with possible abscess and and/or leak from surgical site -Prolonged hospitalization, ICU delirium -Neurochecks, aspiration precautions -Monitor mentation closely Persistent leukocytosis -As above -Likely secondary to concerns for recurrent or residual perforation or leak, with concerns for abscesses -Repeat blood cultures -Repeat urine cultures -Repeat sputum cultures -Flu, COVID -Follow inflammatory markers Hypernatremia related to dehydration Continue D5 normal saline Continue TPN TPN to 30 cc/h Sodium has been gradually trending down Hypokalemia, will replace Hypophosphatemia we will replace Transaminitis, with hyperbilirubinemia, secondary to abdominal surgery as above, with complications as above Postoperative sepsis: Resolved Poor appetite diet, not eating Protein calorie malnutrition, deconditioning AKIRA: Nonoliguric ATN Nephrology consulted Creatinine remains 4.2 Patient is getting acidotic, I have given him 1 amp of bicarb 100 mEq Normal anion gap acidosis related to recent duodenal repair Guarded prognosis family only wants to continue conservative medical interventions, no aggressive interventions, DNR/DNI no chest compressions or defibrillation Patient will need prison placement on hospice versus comfort care Disposition: Rehab: I have asked nursing staff to try to get him up to the side of bed, encourage sips and chips, Attestations Medical Necessity Statement*: Patient requires hospitalization for comfort care, hospice, awaiting end-of-life contract Coding Level of Care Code 32344 Moderate MDM includes number and complexity of problems actively addressed during encounter, amount and/or complexity of data reviewed/ordered and described risk of complication, morbidity or mortality of management as do cumented Diagnoses Acute encephalopathy G93.40 Hypoalbuminemia E88.09 Hyperbilirubinemia E80.6 Thrombocytopenia D69.6 Leukocytosis D72.829 Transaminitis R74.01 Postoperative sepsis T81.44XA Duodenal ulcer, perforated K26.5 Acute hypernatremia E87.0 Acute kidney injury N17.9 Unspecified dementia with behavioral disturbance F03.91 Major depressive disorder, recurrent, severe with psychotic symptoms F33.3 Chronic post-traumatic stress disorder F43.12 Generalized anxiety disorder F41.1 Acute renal failure N17.9 Protein calorie malnutrition E46 Physical deconditioning R53.81 Need for comfort care Encounter for hospice care discussion Z71.89
--- NOTE | 2022-05-24 17:03 | PC.SOCIAL ---
IMM UPDATED IMM dated and initialed and copy given to patient and copy placed in chart.
[2022-05-25] VITALS (8 sets, daily range): BP systolic 99–119; BP diastolic 49–57; PULSE 89–111; RESP 7–16; TEMP 36.8–37.4; O2SAT 91–98
[2022-05-25] MEDS: morphine 4 mg/mL SDV 1 mL IVP ×4 (00:30→13:27)
[2022-05-25] MEDS: LORazepam 2 mg/mL INJ 1 mL IVP (09:50)
[2022-05-25] MEDS: morphine 10 mg/0.5 mL oral liq UD SUBLINGUAL (09:56)
[2022-05-25 10:27] LABS: SARS Covid-2 Antigen negative (Negative)
--- NOTE | 2022-05-25 10:54 | P.DS_ITS ---
Discharge Providers Date of Admission: 05/15/22 13:27 Date of Discharge: May 25, 2022 Attending Provider at Admission: Jorge Ariza DO Attending Provider at Discharge: Haim Lowe MD Diagnoses at Discharge Discharge Diagnosis (1) Acute encephalopathy: Status: Acute (2) Hypoalbuminemia: Status: Acute (3) Hyperbilirubinemia: Status: Acute (4) Thrombocytopenia: Status: Acute (5) Leukocytosis: Status: Acute (6) Transaminitis: Status: Acute (7) Postoperative sepsis: Status: Acute (8) Duodenal ulcer, perforated: Status: Acute (9) Acute hypernatremia: Status: Acute (10) Acute kidney injury: Status: Acute (11) Unspecified dementia with behavioral disturbance: Status: Suspected (12) Major depressive disorder, recurrent, severe with psychotic symptoms: Status: Chronic (13) Chronic post-traumatic stress disorder: Status: Chronic (14) Generalized anxiety disorder: Status: Chronic (15) Acute renal failure: Status: Acute (16) Protein calorie malnutrition: Status: Acute (17) Physical deconditioning: Status: Acute (18) Need for comfort care: Status: Acute (19) Encounter for hospice care discussion: Status: Acute Reason for Visit Reason for Visit: GI BLEED Hospital Course Hospital Course Frank Junior is a 71 year old male longterm resident presented to hospital with abdominal pain and hematemesis.? Patient is not able to provide meaningful history, I have left a voicemail to his brother have not received any call back yet.? Patient is endorsing abdominal pain, hemodynamically stable for now patient is going to the OR for exploratory laparotomy, Dr. Ariza has been consulted.? No culture data shows perforated duodenal ulcer, leukocytosis, afebrile, AKIRA, hypernatremia, signs of dehydration. Patient was admitted to [facility] for duodenal ulcer with perforation, status post exploratory laparotomy with creation of omental flap, [place] patch repair, admitted to the ICU, on pressor therapy, developed acute renal failure, nephrology was consulted. Patient was clinically monitored, had postoperative sepsis, hyponatremia, AKIRA. Required Precedex for agitation, confusion. Patient was eventually moved to general medical floors, had persistent AKIRA, encephalopathy, has underlying dementia. According to family members, he has not been eating for the last 2 weeks, has dementia, but has some degree of functionality as he has been living on his own. On the general medical floors he continued to have encephalopathy, no appetite, would refuse to eat, refused to participate with any type of therapy, become agitated at times, receiving antibiotic therapy for postoperative sepsis, receiving TPN. Due to persistent fevers, and inflammatory markers elevation and leukocytosis and repeat CAT scan showed concerns for surgical site leak and or residual or recurrent perforation and or developing abscesses. Throughout his hospitalization, patient remained encephalopathic, he did have some good days in which she was alert and awake to person, to place, but did not know why he was in the hospital, medical decision making was not possible. Most medical decision was made by his daughter. Patient would not eat, would not participate in physical therapy, would want to be left alone, would become agitated at times. After discussion with family, discussed all options available including continue medical therapy, surgical options, hospice care options. Family waned to stop all medical interventions, wanted patient to just be comfortable, ease his pain and ease his suffering allow him to pass away comfortably, patient's family in agreement to proceed with hospice. Patient was made hospice, transition to longterm on hospice. Physical Exam Narrative: Nonresponsive, does not awaken to his name, Resp: COMMON NORMALS: normal respiratory effort, No retractions and No use of accessory muscles AUSCULTATION: wheezes Cardio: COMMON NORMALS: regular rate, regular rhythm, S1 normal heart sound present and S2 normal heart sound present RATE: regular rate RHYTHM: regular rhythm HEART SOUNDS: S1 normal heart sound present and S2 normal heart sound present GI: COMMON NORMALS: Normal to inspection, nondistended, normoactive bowel sounds present and non-tender Extremity: COMMON NORMALS: no pedal edema Urinary Catheter Management: Coude: Cath Placed During This Visit: yes Reason for Continuing Indwelling Catheter: Hospice/Comfort/Palliative Care Urinary Catheter Date of Insertion: 05/15/22 Urinary Catheter Time of Insertion: 13:16 Discharge Data Studies Completed and Pending Completed Studies During Hospitalization Category Date Time Status CT abdomen pelvis w con* [id number] Stat Cat Scan 05/15/22 08:[address] chest abdomen pelvis [[place] [id number] Cat Scan 05/20/22 11:31 Completed ] Stat CXRP [XR chest 1V portable [id number]] Routine Exams 05/16/22 14:43 Completed CXRP [XR chest 1V portable [id number]] Routine Exams 05/16/22 16:10 Completed CXRP [XR chest 1V portable [id number]] Routine Exams 05/16/22 17:29 Completed CXRP [XR chest 1V portable [id number]] Routine Exams 05/17/22 12:37 Completed XR KUB portable [id number] Routine Exams 05/17/22 06:34 Completed XR KUB portable [id number] Routine Exams 05/21/22 07:00 Completed Pending at discharge Category Date Time Status Sputum Culture and Gram Stain Stat Lab 05/20/22 09:54 Uncollected Urine Culture Stat Lab 05/20/22 09:54 Uncollected Radiology Impressions Abdomen/Pelvis CT 05/15/22 08:37 IMPRESSION: Perforated duodenal ulcer. THIS REPORT CONTAINS FINDINGS THAT MAY BE CRITICAL TO PATIENT CARE. The findings were verbally communicated via telephone conference with NICOLE BEEBE at 9:53 AM RELIEF CHARGE NURSE on 05/15/2022. The findings were acknowledged and understood. Chest X-Ray 05/17/22 12:37 IMPRESSION: 1. NG tube is in the stomach. The tip is not imaged. 2. Satisfactory PICC line position. 3. Stable nonspecific opacity in the lung bases and possible left pleural effusion. Chest/Abdomen/Pelvis CT 05/20/22 11:31 IMPRESSION: 1. New fluid collections with air centered within the abdomen are ill-defined. Suspect developing abscesses. The largest collection is adjacent to the duodenal C-loop measuring 8.3 x 4.2 cm. Smaller collection which may be contiguous from the larger collection extending into the LEFT abdomen measuring 4.8 x 4.0 cm. There is a additional fluid which is free extending along the RIGHT paracolic gutter and into the mesentery. 2. Numerous foci of free air within the peritoneal cavity. Largest amount near the repaired duodenal perforation. Findings are suspicious for recurrent or residual perforation. 3. Surgical drain is noted but external to the developing complex fluid collections. 4. New small RIGHT pleural effusion. Notified Haim Lowe MD at 05/20/2022 1:20 PM. KUB X-Ray 05/21/22 07:00 IMPRESSION: 1. Limited evaluation. The entirety of the abdomen is not included in the field of view. Unable to assess for free air in the abdomen. 2. No abnormally dilated air-filled bowel loops identified, within the limited field of view. Laboratory Results WBC 8.0 10^3/uL (4.0-10.0) 05/23/22 03:33 RBC 3.36 10^6/uL (4.1-5.3) L 05/23/22 03:33 Hgb 9.3 g/dL (11.7-16.6) L 05/23/22 03:33 Hct 30.8 % (42.0-52.0) L 05/23/22 03:33 MCV 91.7 fl (80-94) 05/23/22 03:33 MCH 27.7 pg (28.0-34.0) L 05/23/22 03:33 MCHC 30.2 g/dL (30.0-36.0) 05/23/22 03:33 RDW 18.0 % (12.1-15.1) H 05/23/22 03:33 Plt Count 112 10^3/cmm (130-400) L 05/23/22 03:33 MPV 12.3 fL (7.4-10.4) H 05/23/22 03:33 Neut % (Auto) 71.5 % 05/23/22 03:33 Lymph % (Auto) 12.9 % 05/23/22 03:33 [place] % (Auto) 10.8 % 05/23/22 03:33 Eos % (Auto) 2.9 % 05/23/22 03:33 Baso % (Auto) 0.4 % 05/23/22 03:33 Neut # (Auto) 5.73 10^3/uL (1.8-7.7) 05/23/22 03:33 Lymph # (Auto) 1.0 10^3/uL (0.8-4.8) 05/23/22 03:33 [place] # (Auto) 0.9 10^3/uL (0.2-0.9) 05/23/22 03:33 Eos # (Auto) 0.2 10^3/uL (0.0-0.8) 05/23/22 03:33 Baso # (Auto) 0.0 10^3/uL (0.0-0.1) 05/23/22 03:33 Nucleated RBC % (auto) 0 % 05/23/22 03:33 Total Counted 100 (0-100) 05/19/22 03:08 Atypical Lymphs % Not Reportable 05/19/22 03:08 Absolute Neutrophils 14.0 10^3/cmm (1.4-6.5) H 05/18/22 02:39 Segmented Neutrophils 88 % 05/19/22 03:08 Abs Segm Neuts (Man) 9.7 10/cmm (1.6-7.1) H 05/19/22 03:08 Band Neutrophils Not Reportable 05/19/22 03:08 Abs Band Neuts (Man) 0.3 10^3/cmm (0.0-1.2) 05/18/22 02:39 Lymphocytes (Manual) 6 % 05/19/22 03:08 Monocytes (Manual) 6.0 % 05/19/22 03:08 Absolute Monocytes 0.7 10^3/cmm (0.1-0.6) H 05/19/22 03:08 Eosinophils (Manual) Not Reportable 05/19/22 03:08 Absolute Eosinophils 0.1 10^3/cmm (0.0-0.7) 05/18/22 02:39 Basophils (Manual) Not Reportable 05/19/22 03:08 Nucleated RBCs # 0.0 /100WBC 05/23/22 03:33 Toxic Granulation 1+ H 05/18/22 02:39 Platelet Estimate Decreased (Normal) 05/19/22 03:08 ESR 23 mm/hr (0-10) H 05/20/22 10:40 PT 15.00 SECONDS (12.1-14.9) H 05/21/22 05:03 INR 1.14 (0.8-1.2) 05/21/22 05:03 APTT 30.9 SECONDS (23.9-36.7) 05/20/22 10:40 Fibrinogen 749 mg/dL (174-498) H 05/20/22 10:40 Fibrin Degrad Products Pos, 10-40 ug/mL (NEG) H 05/20/22 10:40 D-Dimer 2.81 ug/mIFEU (0-0.59) H 05/20/22 10:40 Sodium 144 mmol/L (136-145) 05/23/22 03:33 Potassium 3.5 mmol/L (3.5-5.1) 05/23/22 03:33 Chloride 112 mmol/L (98-107) H 05/23/22 03:33 Carbon Dioxide 20 mmol/L (22-29) L 05/23/22 03:33 Anion Gap 15.5 (5-19) 05/23/22 03:33 BUN 50 mg/dL (8-23) H 05/23/22 03:33 Creatinine 3.7 mg/dL (0.7-1.2) H 05/23/22 03:33 GFR Calculation Not Reportable 05/23/22 03:33 Glucose 179 mg/dL (65-115) H 05/23/22 03:33 POC Glucose 171 mg/dL (70-110) H 05/19/22 19:57 Calculated Osmolality 316 mOsm/kg (285-295) H 05/23/22 03:33 Lactic Acid 1.5 mmol/L (0.5-2.2) 05/17/22 06:57 Lactate 3.4 mmol/L (0.5-2.2) H 05/15/22 08:47 Calcium 7.5 mg/dL (8.5-10.5) L 05/23/22 03:33 Phosphorus 2.7 mg/dL (2.5-4.5) 05/23/22 03:33 Magnesium 1.7 mg/dL (1.7-2.3) 05/23/22 03:33 Ferritin 1250 ng/mL (30-400) H 05/20/22 10:40 Total Bilirubin 2.0 mg/dL (0.15-1.2) H 05/23/22 03:33 AST 65 U/L (0-40) H 05/23/22 03:33 ALT 57 U/L (0-41) H 05/23/22 03:33 Alkaline Phosphatase 126 U/L (40-130) 05/23/22 03:33 C-Reactive Protein 175.4 mg/L (0.0-4.9) H 05/23/22 03:33 NT-Pro-B Natriuret Pep 2411 pg/mL (0-125) H 05/23/22 03:33 Total Protein 4.3 g/dL (6.6-8.7) L 05/23/22 03:33 Albumin 2.1 g/dL (3.5-5.2) L 05/23/22 03:33 Globulin 2.2 g/dL (1.3-4.6) 05/23/22 03:33 Lipase 167 U/L (13-60) H 05/15/22 08:47 Procalcitonin 0.43 ng/mL (0-0.5) 05/23/22 03:33 Urine Color Dark yellow (Yellow) 05/17/22 06:56 Urine Appearance Cloudy (CLEAR) A 05/17/22 06:56 Urine pH 5 (5-7) 05/17/22 06:56 Ur Specific [place] 1.015 (1.005-1.030) 05/17/22 06:56 Urine Protein 1+ (Negative) H 05/17/22 06:56 Urine Glucose (UA) Norm (Normal) 05/17/22 06:56 Urine Ketones 1+ (Negative) H 05/17/22 06:56 Urine Blood 3+ (Negative) H 05/17/22 06:56 Urine Nitrate Negative (Negative) 05/17/22 06:56 Urine Bilirubin 1+ (Negative) H 05/17/22 06:56 Urine Urobilinogen 4 mg/dL (Negative) H 05/17/22 06:56 Ur Leukocyte Esterase Trace (Negative) H 05/17/22 06:56 Urine RBC 0-4 /hpf (0-2) H 05/17/22 06:56 Urine WBC 0-4 /hpf (0-5) H 05/17/22 06:56 Ur Eosinophil Smear 0 (0-0) 05/18/22 13:21 Ur Squamous Epith Cells 0-4 /hpf (0-5) H 05/17/22 06:56 Uric Acid Crystals Too numerous to cnt /hpf H 05/17/22 06:56 Amorphous Sediment 2+ /hpf 05/17/22 06:56 Urine Bacteria 2+ /hpf (NONE) H 05/17/22 06:56 Urine Eosinophils No eosinophils seen 05/18/22 13:21 Ur Random Microalbumin 9 ug/dL (0-20) 05/18/22 13:21 Ur Random Sodium 37 mmol/L 05/18/22 13:21 Ur Random Potassium 32 mmol/L 05/18/22 13:21 Ur Random Chloride 25 mmol/L 05/18/22 13:21 Urine Creatinine 126 mg/dL (39-259) 05/18/22 13:21 Microalb/Creat Ratio 71 mg/dL (0-20) H 05/18/22 13:21 Random Vancomycin 15.7 ug/mL (20.0-40.0) L 05/23/22 07:58 Coronavirus 229E (PCR) Not detected (NOT DETECT) 05/20/22 14:10 Influenza Type A Ag negative (Negative) 05/20/22 14:10 Influenza Type B Ag negative (Negative) 05/20/22 14:10 SARS-CoV-2 (PCR) Not detected (NOT DETECT) 05/20/22 14:10 SARS-CoV-2 Ag (Rapid) negative (Negative) 05/25/22 09:35 Blood Type A Positive 05/15/22 08:47 Rho(D) Type Positive 05/15/22 08:47 Antibody Screen Negative 05/15/22 08:47 Vitals Last Vital Signs Temp 99.4 F 05/25/22 07:59 Pulse 111 H 05/25/22 07:59 Resp 12 05/25/22 07:59 BP 99/57 05/25/22 07:59 Pulse Ox 93 05/25/22 07:59 O2 Del Method 05/25/22 07:59 Discharge Plan Discharge Patient Disposition: Hospice - Medical Facility Condition: Serious Prescriptions: Continued ammonium lactate 12 % cream 1 applic topical DAILY Qty: 385 3RF Rx Instructions: Apply neck down daily Discontinued lisinopril 20 mg tablet 10 mg PO DAILY budesonide 90 mcg/actuation aerosol powdr breath activated 2 inh INHALATION BID cilostazol 100 mg tablet 50 mg PO BID aspirin [Adult Low Dose Aspirin] 81 mg tablet,delayed release (DR/EC) 81 mg PO DAILY amlodipine 10 mg tablet 10 mg PO DAILY atorvastatin 40 mg tablet 20 mg PO QPM Seroquel 25 mg tablet 25 mg PO BEDTIME Aricept 10 mg tablet 10 mg PO QPM tamsulosin 0.4 mg capsule 0.4 mg PO BEDTIME memantine 10 mg tablet 10 mg PO QAM acetaminophen 325 mg Tablet 650 mg PO QID PRN (Reason: Pain) Milk of Magnesia 400 mg/5 mL Suspension 30 ml PO Q72H PRN (Reason: Constipation) Dulcolax (bisacodyl) 10 mg Suppository 10 mg HI DAILY PRN (Reason: Constipation) Fleet Enema 19-7 gram/118 mL Enema 118 ml HI DAILY PRN (Reason: Constipation) bisacodyl 5 mg tablet,delayed release (DR/EC) 10 mg PO DAILY PRN (Reason: Constipation) Discharge Orders: Discharge Order (Routine); Ordered 05/25/22 Ordered By: Haim Lowe Discharge Diet: Advance as tolerated Discharge Activity: Resume usual activity Discharge Attestations Time Spent in Discharge Care*: greater than 30 min Quality Metrics Clinical Quality Measures [ No reported AMI, CVA or VTE this stay] Coding Level of Care Code Acute Code for Chg Fwd Diagnoses Acute encephalopathy G93.40 Hypoalbuminemia E88.09 Hyperbilirubinemia E80.6 Thrombocytopenia D69.6 Leukocytosis D72.829 Transaminitis R74.01 Postoperative sepsis T81.44XA Duodenal ulcer, perforated K26.5 Acute hypernatremia E87.0 Acute kidney injury N17.9 Unspecified dementia with behavioral disturbance F03.91 Major depressive disorder, recurrent, severe with psychotic symptoms F33.3 Chronic post-traumatic stress disorder F43.12 Generalized anxiety disorder F41.1 Acute renal failure N17.9 Protein calorie malnutrition E46 Physical deconditioning R53.81 Need for comfort care Encounter for hospice care discussion Z71.89
--- NOTE | 2022-05-25 12:44 | PC.NURSE ---
Report called to [facility] given to Rere KESSLER. All questions answered.
[2022-05-25 17:48] LABS: Glucose Point of Care 93 mg/dL (70-110)
== END 2022-05-25 13:48 | disposition hospice, home (50) | DRG 329 ==
LOC: ER 09:23 → OR 10:02 → ICU 12:36 → MEDSURG 05-19 13:43
PROVIDERS: Hospitalist; Internal Medicine; Internal Medicine Hematology & Oncology; Internal Medicine Nephrology; Admitting Provider Surgery; Emergency Provider Emergency Medicine; Visit Provider Family Medicine
PROC: 0DU907Z Supplement Duodenum with Autologous Tissue Substitute, Open Approach (ICD-10-PCS; CPT 49000; principal; 2022-05-15 11:15)
DX: K26.5 Chronic or unspecified duodenal ulcer with perforation (principal); N17.0 Acute kidney failure with tubular necrosis; R65.21 Severe sepsis with septic shock; R57.1 Hypovolemic shock; T81.44XA Sepsis following a procedure, initial encounter; E87.0 Hyperosmolality and hypernatremia; F02.811 Dementia in other diseases classified elsewhere, unspecified severity, with agitation; F05 Delirium due to known physiological condition; N13.8 Other obstructive and reflux uropathy; F33.3 Major depressive disorder, recurrent, severe with psychotic symptoms; I47.1 Supraventricular tachycardia; E87.20 Acidosis, unspecified; E44.0 Moderate protein-calorie malnutrition; G30.9 Alzheimer's disease, unspecified; Z51.5 Encounter for palliative care; Z66 Do not resuscitate; Z79.82 Long term (current) use of aspirin; N40.1 Benign prostatic hyperplasia with lower urinary tract symptoms; F43.12 Post-traumatic stress disorder, chronic; F41.1 Generalized anxiety disorder; Z87.891 Personal history of nicotine dependence; I95.9 Hypotension, unspecified; E86.0 Dehydration; E86.1 Hypovolemia; R06.81 Apnea, not elsewhere classified; Z68.35 Body mass index [BMI] 35.0-35.9, adult; D69.6 Thrombocytopenia, unspecified; Y83.8 Other surgical procedures as the cause of abnormal reaction of the patient, or of later complication, without mention of misadventure at the time of the procedure
CPT/HCPCS: 12345; 36415; 36416; 36569; 36592; 51702; 71045; 71250; 74018; 74176; 74177; 80048; 80053; 80202; 80503; 81001; 82044; 82436; 82728; 82962; 83605; 83690; 83735; 83880; 84100; 84133; 84145; 84295; 84300; 85007; 85014; 85018; 85025; 85362; 85378; 85384; 85610; 85651; 85730; 85999; 86140; 86850; 86900; 87040; 87086; 87426; 87635; 87641; 87804; 92507; 92523; 92526; 92610; 94640; 94664; 96365; 96372; 96374; 96376; 97161; 97165; 99285; C1751; C9113; J0637; J1630; J1644; J2060; J2185; J2248; J2270; J2543; J3010; J3370; J3475; J3490; J7030; J7040; J7042; J7050; J7060; J7070; P9045; Q9967